=== PATIENT | male | born 1960 | race Caucasian/White ===

== ENCOUNTER → 2016-08-05 | Outpatient (CLI) | payer OTHER ==
[~2016-08-05] MED LIST: FLUID PILL; HEART MED; LISI-461 PO; REVIEWED; STOMACH MED
[2016-08-05 12:08] LABS: BASO % 0.5 %; BASO ABS # 0.04 K/uL (0-0.2); COMPLETE YES; EOS % 8.7 %; HEMATOCRIT 46.7 % (42-52); IG% 0.1 %; LYMPH % 29.4 %; LYMPH ABS # 2.22 K/uL (1.2-3.4); MEAN CORPUSCULAR HEMOGLOBIN 30.7 pg (25-34); MEAN CORPUSCULAR HGB CONC 34.5 g/dl (32-36); MEAN PLATELET VOLUME 11.4 fL (7.4-10.4); MONO % 16.2 %; NEUT % 45.1 %; PLATELET COUNT 202 K/uL (130-400); RED BLOOD COUNT 5.25 M/uL (4.7-6.1); WHITE BLOOD COUNT 7.55 K/uL (4.8-10.8)
[2016-08-05 12:33] LABS: ALT/SGPT 35 U/L (12-78); BLOOD UREA NITROGEN 14 mg/dl (7-18); CARBON DIOXIDE 22 mmol/L (21-32); CHLORIDE 107 mmol/L (98-107); CHOLESTEROL 155 mg/dl (0-200); CREATININE 0.89 mg/dl (0.60-1.40); GLUCOSE 99 mg/dl (70-99); MAGNESIUM 2.1 mg/dl (1.8-2.4); POTASSIUM 3.9 mmol/L (3.5-5.1); SODIUM 140 mmol/L (136-145); TRIGLYCERIDES 64 mg/dl (0-150); VERY LOW DENSITY LIPOPROT CALC 13 mg/dl
[2016-08-05 12:42] LABS: ALB/GLOB RATIO 1.1 (0.9-2); ALKALINE PHOSPHATASE 102 U/L (45-117); AST/SGOT 16 U/L (15-37); CHOLESTEROL/HDL RATIO 4.3; HDL CHOLESTEROL 36 mg/dl; LDL CHOLESTEROL CALCULATED 106 mg/dl
== END | disposition home or self-care (01) ==
LOC: C.LAB1850 10:48
PROVIDERS: ATTEND Internal Medicine
DX: E55.9 Vitamin D deficiency, unspecified (principal); I10 Essential (primary) hypertension; R06.09 Other forms of dyspnea; I48.91 Unspecified atrial fibrillation

== ENCOUNTER 2018-10-29 08:31 | Inpatient (IN) ==
[2018-10-29] MEDS ORDERED: dilTIAZem HCl 5 MG/ML 5 ML VIAL IV ONE (08:45)
[2018-10-29] MEDS ORDERED: dilTIAZem HCl 5 MG/ML 5 ML VIAL IV STA (08:49)
[2018-10-29] MEDS ORDERED: LORazepam 1 MG/2 ML VIAL IV STA (08:50)
[2018-10-29 08:59] LABS: Basophils # (auto) 0.03 K/uL (0-0.2); Basophils % (auto) 0.4 %; Eosinophils # (auto) 0.24 K/uL (0-0.5); Eosinophils % (auto) 3.6 %; Hematocrit (blood only) 45.6 % (42-52); Immature Granulocytes # (auto) 0.01 K/uL (0.00-0.02); Immature Granulocytes % (auto) 0.1 %; Lymphocytes # (auto) 2.23 K/uL (1.2-3.4); Lymphocytes % (auto) 33.4 %; Mean Corpuscular Hemoglobin 31.3 pg (25-34); Mean Corpuscular Hgb Conc 35.1 g/dL (32-36); Mean Corpuscular Volume 89.2 fL (80-100); Mean Platelet Volume 11.1 fL (7.4-10.4); Monocytes # (auto) 0.76 K/uL (0.11-0.59); Monocytes % (auto) 11.4 %; Neutrophils # (auto) 3.41 K/uL (1.4-6.5); Neutrophils % (auto) 51.1 %; Platelet Count 192 K/uL (130-400); RDW Coefficient of Variation 13.9 % (11.5-14.5); RDW Standard Deviation 45.3 fL (36.4-46.3); Red Blood Count 5.11 M/uL (4.7-6.1); White Blood Count 6.68 K/uL (4.8-10.8)
[2018-10-29] MEDS ORDERED: SODIUM CHLORIDE 0.9% 1000ML 1,000 ML IV SCH (09:00)
[2018-10-29 09:09] LABS: INR 1.2 (0.9-1.1); Partial Thromboplastin Ratio 1.1; Partial Thromboplastin Time 29.5 Seconds (21.0-31.0); Prothrombin Time 11.8 Seconds (9.0-12.0)
[2018-10-29 09:15] LABS: BUN Creatinine Ratio 20.9 (10-20); Calcium 9.2 mg/dl (8.5-10.1); Creatinine Clr Calc Pharmacy 89.6 ml/min; Est GFR (African American) 91.9; Est GFR (Non-African American) 79.3; Potassium 3.9 mmol/L (3.5-5.1)
[2018-10-29] MEDS: dilTIAZem HCL 125 MG in DEXTROSE 5% 100 ML IV SCH ×2 (09:17→17:35)
--- NOTE | 2018-10-29 09:28 | XRay Report ---
SINGLE VIEW CHEST CLINICAL HISTORY: Atypical chest pain. FINDINGS: An AP, portable, upright chest radiograph is compared to study dated 10/19/2018. The examina tion is degraded by portable technique and patient rotation. The heart is markedly enlarged. There is pulmonary vascular congestion with evidence of interstitial edema. Emphysema is suspected. Small p leural effusions are noted. No pneumothorax is seen. The skeletal structures are osteopenic. The bony thorax is grossly intact. IMPRESSION: 1. Cardiomegaly with evidence of congestive failure and interstitial edema. 2. Superimposed pneumonia would be impossible to exclude and clinical correlation will be required. 3. Small pleural effusions. Electronically signed by: Issa Lyles M.D. 10/29/2018 9:27 AM
[2018-10-29 09:48] LABS: Troponin I 0.212 ng/ml (0-0.045)
[2018-10-29] MEDS ORDERED: DOXYCYCLINE HYCLATE 100 MG CAP PO STA (10:14)
[2018-10-29] MEDS ORDERED: cefTRIAXone SODIUM 2,000 MG/70 ML BAG IV STA (10:14)
[2018-10-29] MEDS ORDERED: FUROSEMIDE 20 MG in SYRINGE 0 ML IV STA (10:18)
[2018-10-29] MEDS ORDERED: FUROSEMIDE 40 MG/4 ML VIAL IV STA (10:25)
--- NOTE | 2018-10-29 10:35 | History & Physical Report ---
Date of Service October 29, 2018 Assessment & Plan (1) Atrial fibrillation with RVR: Admit to PCU on telemetry Vital signs every 4 hours Trend down BNP CBC CMP magnesium daily Replenish electrolytes Trend down elevated troponin every 6 hours with EKG TTE Cardiology consulted appreciate Dr. Murray recommendations Dr. Almanzar recommended to give patient metoprolol 2.5 IV and if A. fib's continue to give another 2.5 IV and digoxin 0.25 mg if A. fib persistent, to control the rate. In the meantime ER physician was informed that patient did not take his metoprolol XL and already had given patient metoprolol XL 150mg we decided to hold metoprolol 2.5 IV and reassess patient later again. Given ceftriaxone and doxycycline for possible superimposed pneumonia empirically in the ER, and if the cough improves the next the day and all of his symptoms are in fact found to be related to acute exacerbation of congestive heart failure I recommend stopping antibiotics. Patient is afebrile, procalcitonin is 0.05 and white blood cell count is normal 6.68 therefore pneumonia less likely. Strict in and out Daily weight Low-sodium Free fluid restriction to 1200 ml p.o. daily Heart healthy diet low-fat DVT prophylaxis with heparin Full code Present on Admission?: Yes (2) Elevated troponin: trend down troponin every 6 hours EKG Probably related to cardiac strain due to acute exacerbation of congestive heart failure and A. fib's with RVR. Present on Admission?: Yes (3) Cardiomyopathy: See above Present on Admission?: Yes (4) Acute on chronic congestive heart failure: See above (5) Dyslipidemia: (6) Enlarged prostate: (7) HTN (hypertension): Continue home medicine lisinopril 10 mg p.o. twice daily, metoprolol succinate 150 mg p.o. nightly, nitroglycerin 0.4 mg sublingual q. 5 minutes as needed. Present on Admission?: Yes (8) Moderate to severe mitral regurgitation: See above cardiac issues Present on Admission?: Yes (9) Thoracic back pain: Pain management with Percocet as needed Present on Admission?: Yes (10) Constipation due to opioid therapy: Continue senna 8.6 mg tablet daily as needed and docusate sodium 100 mg daily as needed History of Present Illness Chief Complaint: Shortness of breath, palpitations and cough for 2 weeks Primary Care Provider: Rosalind Motley MD Patient is a 58 years old male with past medical history of atrial fibrillation on Eliquis, congestive heart failure, cardiomyopathy, dyslipidemia, enlarged prostate, hypertension, moderate to severe mitral regurgitation, thyroid nodule, vitamin D deficiency who was brought by his son to the emergency room for shortness of breath, palpitations that started this morning and cough for 2 weeks. Patient is on Eliquis for A. fib's. Patient reports cough being nonproductive. 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 Patient try lozenges to diminish cough but that did not help. June patient suffered a fall from 5 steps ladder underwent multiple trauma including left distal radial fracture. At that point patient was seen at [facility] by cardiology who noted that patient had A. fib's with RVR heart rate of 130 and cardiology recommended rate control strategy patient is status post ORIF PT, OT and pain control patient also had L1 vertebral fracture and TLSO brace nobody is sick at home and there is no sick contact. Patient denies fever chills chest pain abdominal pain frequency urgency hemoptysis hematemesis melena, recent weight gain. He feels malaise and very tired. In the emergency room patient heart rate was in 150s A. fib's with RVR. Cardizem bolus and drip were started and heart rate started to trend down closer to 100. Heparin drip was not started because patient is already on Eliquis. Patient has elevated troponin to 0.212. He denies chest pain. Labs are reviewed: Viable cell 6.68, hematocrit 45.6 hemoglobin 16 platelets 192, PT 11.8 INR 1.2 APTT 29.5, sodium 143, potassium 3.9 chloride 112, anion gap 6, BUN 22, creatinine 1.04 GFR 79.3 lactate 1.2 calcium 9.2, troponin 0 0.212, BNP 2527 procalcitonin 0.05. Chest x-ray shows cardiomegaly with evidence of congestive failure and interstitial edema. Superimposed pneumonia would be impossible to exclude and clinical correlation will be required. Small pleural effusions. The emergency room patient was started on diltiazem bolus/drip, given 150 mg of metoprolol which patient did not take today, started heparin bolus and drip since it was not clear if patient is regularly taking Eliquis or not. Given ceftriaxone and doxycycline for possible pneumonia superimposed with CHF. Decision was made to admit patient to PCU telemetry to trend down troponin and to treat acute exacerbation of congestive heart failure and possible pneumonia. Allergies Allergy/AdvReac Type Severity Reaction Status Date / Time No Known Allergies Allergy Mild Verified 10/29/18 09:54 Home Medications Home Medications Medication Instructions Recorded Confirmed Type docusate sodium 100 mg capsule 100 mg PO DAILY PRN 09/20/18 10/29/18 History sennosides 8.6 mg tablet 8.6 mg PO DAILY PRN tab 09/20/18 10/29/18 History benzonatate 100 mg capsule 100 mg PO TID PRN #30 cap 10/19/18 10/29/18 Rx lisinopril 10 mg tablet 10 mg PO BID #60 tab 10/19/18 10/29/18 Rx nitroglycerin 0.4 mg sublingual 0.4 mg SL Q5M PRN #30 tab 10/19/18 10/29/18 Rx tablet metoprolol succinate [Toprol XL] 150 mg PO QAM 10/29/18 10/29/18 History pantoprazole 40 mg PO QAM 10/29/18 10/29/18 History Past Med/Surg History Medical History Encounter for cardioversion procedure History of implantable cardiac defibrillator (ICD) Surgical History Hx of tonsillectomy Family History Father Coronary heart disease Hypertension Mother Hypertension Brother Hypertension Social History Preferred Language: [facility] marital status: Current Living Situation: Spouse current occupational status: disabled Feels Safe at Home: Yes Smoking Status: Never smoker Hx Alcohol Use: No Hx Substance Use: No Seatbelt Use: always Review of Systems Review of Systems: All systems reviewed & are unremarkable except as noted in HPI & below Physical Exam Constitutional: WD/WN, vitals as above well developed Eyes: PERRL, conjunctivae normal, anicteric sclerae ENMT: external ear and nose normal, oropharynx normal Neck: trachea midline, no thyromegaly Respiratory: + respiratory distress, + cough and + tachypneic Auscultation: + crackles, + wheezes, + bronchovesicular breath sounds and + egophony Cardiovascular: Rate/Rhythm: + irregularly irregular Heart Sounds: normal S1 and normal S2 Palpation: + palpable S3 Vessels: + JVD and dorsalis pedis pulses present Extremities: + pedal edema Gastrointestinal (Abdomen): normal bowel sounds, soft, nontender, no hepatosplenomegaly Musculoskeletal: no cyanosis or clubbing, extremities motor strength 5/5 Skin: no rashes, warm and dry Neurologic: patellar DTR's 2+ bilat, sensation intact Psychiatric: A+Ox3, euthymic affect Genitourinary: no testicular masses, no penis abnormality Lymphatic: no cervical or axillary lymphadenopathy Results & Data Vital Signs (Past 12 Hours) Vital Signs Temp Pulse Pulse Resp BP BP Pulse Ox 10/29/18 09:35 113 H 22 170/98 H 93 10/29/18 09:30 128 H 27 H 151/98 H 94 10/29/18 09:25 126 H 28 H 151/99 H 92 10/29/18 09:21 122 H 18 168/104 H 95 10/29/18 09:16 124 H 26 H 142/109 H 95 10/29/18 09:10 118 H 25 H 145/90 H 95 10/29/18 09:05 103 H 25 H 142/95 H 94 10/29/18 09:00 122 H 35 H 132/98 91 10/29/18 08:58 133/91 10/29/18 08:56 107 H 20 153/85 H 95 10/29/18 08:52 116 H 19 133/91 94 10/29/18 08:51 142 H 30 H 123/105 H 96 10/29/18 08:50 154 H 24 170/133 H 10/29/18 08:47 133 H 26 H 170/139 H 97 10/29/18 08:33 36.4 C L 99 H 24 148/102 H 98 Code Status & VTE Plan Code Status Full code VTE Prophylaxis Plan VTE Prophylaxis will be ordered: Yes PG Care Time/CCT Total # of Minutes Spent Total Time Spent with Patient: Total time spent is greater than 50% in coordination of care (as documented) at patient's floor/unit and/or counseling patient:
[2018-10-29 10:45] LABS: Magnesium 2.2 mg/dl (1.8-2.4)
[2018-10-29] MEDS ORDERED: METOPROLOL SUCC 50MG EXT REL TAB PO STA (10:48)
[2018-10-29] MEDS ORDERED: Heparin BOLUS **ED Use Only IV STA (10:59)
[2018-10-29] MEDS ORDERED: ALBUT/IPRATROP 3MG/0.5MG NEB 3 ML VIAL NEB STA (11:37)
[2018-10-29] MEDS ORDERED: HEPARIN SOD 5,000 UNIT/0.5 ML VIAL ONE (11:52)
[2018-10-29] MEDS: HEPARIN SODIUM/DEXTROSE 25,000 UNITS/500 ML BAG IV SCH (12:22)
[2018-10-29] MEDS ORDERED: ACETAMINOPHEN 325 MG TAB PO PRN (14:25)
[2018-10-29] MEDS ORDERED: ZOLPIDEM TARTRATE 5 MG TAB PO PRN (14:25)
[2018-10-29] MEDS ORDERED: DOCUSATE SODIUM 100 MG CAP PO PRN (14:25)
[2018-10-29] MEDS ORDERED: NITROGLYCERIN SL 0.4 MG/TAB TAB SL PRN ×2 (14:25)
[2018-10-29] MEDS ORDERED: POLYETHYLENE (MIRALAX) 17 GM PACK PO PRN (14:25)
[2018-10-29] MEDS ORDERED: SENNA 8.6 MG TAB PO PRN (14:25)
[2018-10-29] MEDS: FUROSEMIDE 100 MG in DEXTROSE 5% 90 ML IV SCH (14:57)
[2018-10-29] MEDS: BENZONATATE 100 MG CAPSULE PO PRN ×2 (15:04→19:54)
--- NOTE | 2018-10-29 15:04 | Emergency Department Note ---
Entered by Carley Ngo acting as a scribe for Andrea Najera History of Present Illness General Chief complaint: Respiratory Distress Stated complaint: SOB, SHAKEY- CARDIAC HX Time Seen by Provider: 10/29/18 08:42 Source: patient History of Present Illness Onset (ago): hour(s) (this morning) Location: chest Pain Consistency: + other (episode) Maximum Pain Intensity: 0 Quality: + other (respiratory distress) Associated symptoms: + denies other symptoms (falls, trauma, or head trauma) and + other (choking sensation) The patient is a 58 year old male with a history of atrial fibrillation that is presenting to the Emergency Room with complaints of an episode of respiratory distress that started this morning. The patients relative at bedside is acting as the patients aviation manager. The patient reports that he is having difficulty breathing and feels like someone is choking him. He denies any chest pain or hemoptysis. He denies any recent falls, trauma, or head trauma. He states that he takes all of his medications except for one. The patient notes that he is unsure which medication he does not take. He states that he is unsure if he is taking a blood thinner. Home Medications Home Medications Medication Instructions Recorded Confirmed Type docusate sodium 100 mg capsule 100 mg PO DAILY PRN 09/20/18 10/29/18 History sennosides 8.6 mg tablet 8.6 mg PO DAILY PRN tab 09/20/18 10/29/18 History benzonatate 100 mg capsule 100 mg PO TID PRN #30 cap 10/19/18 10/29/18 Rx lisinopril 10 mg tablet 10 mg PO BID #60 tab 10/19/18 10/29/18 Rx nitroglycerin 0.4 mg sublingual 0.4 mg SL Q5M PRN #30 tab 10/19/18 10/29/18 Rx tablet metoprolol succinate [Toprol XL] 150 mg PO QAM 10/29/18 10/29/18 History pantoprazole 40 mg PO QAM 10/29/18 10/29/18 History Allergies Allergy/AdvReac Type Severity Reaction Status Date / Time No Known Allergies Allergy Mild Verified 10/29/18 09:54 Past Med/Surg History Medical History Encounter for cardioversion procedure History of implantable cardiac defibrillator (ICD) Surgical History Hx of tonsillectomy Family History Father Coronary heart disease Hypertension Mother Hypertension Brother Hypertension Social History Preferred Language: Swazi Communication Ability: Effective 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 and A total of 10 systems reviewed and were otherwise negative Physical Exam Vital Signs Vital Signs - 24 hr 10/29/18 08:33 10/29/18 08:47 10/29/18 08:49 Temperature 36.4 C L Temperature Source Oral Sepsis Recent Fever Within 48 Hours No Sepsis New/Unexplained Change in Mental Status No Sepsis Action Taken by Nursing No Action Required Pulse Rate 99 H 133 H Pulse Rate [Apical] Pulse Rate from SpO2 Sensor 92 H Pulse Rhythm Pulse Rhythm [Apical] Pulse Strength Normal Respiratory Rate 24 26 H Respiratory Effort / Characteristics Labored Spontaneous Respiratory Depth Shallow Blood Pressure 148/102 H 170/139 H Blood Pressure [Left Arm] Blood Pressure Mean 117 149 Blood Pressure Mean [Left Arm] Blood Pressure Position Sitting Pulse Oximetry 98 97 Oxygen Delivery Method Room Air Room Air Oxygen Flow Rate 10/29/18 08:50 10/29/18 08:51 10/29/18 08:52 Temperature Temperature Source Sepsis Recent Fever Within 48 Hours Sepsis New/Unexplained Change in Mental Status Sepsis Action Taken by Nursing Pulse Rate 142 H 116 H Pulse Rate [Apical] 154 H Pulse Rate from SpO2 Sensor 127 H 108 H Pulse Rhythm Pulse Rhythm [Apical] Irregular Pulse Strength Respiratory Rate 24 30 H 19 Respiratory Effort / Characteristics Respiratory Depth Normal Blood Pressure 123/105 H 133/91 Blood Pressure [Left Arm] 170/133 H Blood Pressure Mean 111 105 Blood Pressure Mean [Left Arm] 145 Blood Pressure Position Pulse Oximetry 96 94 Oxygen Delivery Method Room Air Oxygen Flow Rate 10/29/18 08:56 10/29/18 08:58 10/29/18 09:00 Temperature Temperature Source Sepsis Recent Fever Within 48 Hours Sepsis New/Unexplained Change in Mental Status Sepsis Action Taken by Nursing Pulse Rate 107 H 122 H Pulse Rate [Apical] Pulse Rate from SpO2 Sensor 97 H 109 H Pulse Rhythm Pulse Rhythm [Apical] Pulse Strength Respiratory Rate 20 35 H Respiratory Effort / Characteristics Respiratory Depth Blood Pressure 153/85 H 132/98 Blood Pressure [Left Arm] 133/91 Blood Pressure Mean 107 109 Blood Pressure Mean [Left Arm] 105 Blood Pressure Position Pulse Oximetry 95 91 Oxygen Delivery Method Oxygen Flow Rate 10/29/18 09:05 10/29/18 09:10 10/29/18 09:16 Temperature Temperature Source Sepsis Recent Fever Within 48 Hours Sepsis New/Unexplained Change in Mental Status Sepsis Action Taken by Nursing Pulse Rate 103 H 118 H 124 H Pulse Rate [Apical] Pulse Rate from SpO2 Sensor 105 H 111 H 91 H Pulse Rhythm Irregular Pulse Rhythm [Apical] Pulse Strength Respiratory Rate 25 H 25 H 26 H Respiratory Effort / Characteristics Respiratory Depth Blood Pressure 142/95 H 145/90 H 142/109 H Blood Pressure [Left Arm] Blood Pressure Mean 110 108 120 Blood Pressure Mean [Left Arm] Blood Pressure Position Pulse Oximetry 94 95 95 Oxygen Delivery Method Room Air Oxygen Flow Rate 10/29/18 09:21 10/29/18 09:25 10/29/18 09:30 Temperature Temperature Source Sepsis Recent Fever Within 48 Hours Sepsis New/Unexplained Change in Mental Status Sepsis Action Taken by Nursing Pulse Rate 122 H 126 H 128 H Pulse Rate [Apical] Pulse Rate from SpO2 Sensor 119 H 103 H 120 H Pulse Rhythm Pulse Rhythm [Apical] Pulse Strength Respiratory Rate 18 28 H 27 H Respiratory Effort / Characteristics Respiratory Depth Blood Pressure 168/104 H 151/99 H 151/98 H Blood Pressure [Left Arm] Blood Pressure Mean 125 116 115 Blood Pressure Mean [Left Arm] Blood Pressure Position Pulse Oximetry 95 92 94 Oxygen Delivery Method Oxygen Flow Rate 10/29/18 09:35 10/29/18 09:40 10/29/18 09:45 Temperature Temperature Source Sepsis Recent Fever Within 48 Hours Sepsis New/Unexplained Change in Mental Status Sepsis Action Taken by Nursing Pulse Rate 113 H 130 H 142 H Pulse Rate [Apical] Pulse Rate from SpO2 Sensor 110 H 147 H 127 H Pulse Rhythm Pulse Rhythm [Apical] Pulse Strength Respiratory Rate 22 25 H 26 H Respiratory Effort / Characteristics Respiratory Depth Blood Pressure 170/98 H 131/107 H Blood Pressure [Left Arm] Blood Pressure Mean 122 115 Blood Pressure Mean [Left Arm] Blood Pressure Position Pulse Oximetry 93 92 94 Oxygen Delivery Method Oxygen Flow Rate 10/29/18 09:46 10/29/18 09:50 10/29/18 09:51 Temperature Temperature Source Sepsis Recent Fever Within 48 Hours Sepsis New/Unexplained Change in Mental Status Sepsis Action Taken by Nursing Pulse Rate 128 H 124 H 124 H Pulse Rate [Apical] Pulse Rate from SpO2 Sensor 113 H 95 H 118 H Pulse Rhythm Pulse Rhythm [Apical] Pulse Strength Respiratory Rate 27 H 27 H 24 Respiratory Effort / Characteristics Respiratory Depth Blood Pressure 144/92 H 173/117 H Blood Pressure [Left Arm] Blood Pressure Mean 109 135 Blood Pressure Mean [Left Arm] Blood Pressure Position Pulse Oximetry 95 94 94 Oxygen Delivery Method Oxygen Flow Rate 10/29/18 09:55 10/29/18 09:56 10/29/18 10:00 Temperature Temperature Source Sepsis Recent Fever Within 48 Hours Sepsis New/Unexplained Change in Mental Status Sepsis Action Taken by Nursing Pulse Rate 122 H 116 H 134 H Pulse Rate [Apical] Pulse Rate from SpO2 Sensor 109 H 122 H 119 H Pulse Rhythm Pulse Rhythm [Apical] Pulse Strength Respiratory Rate 27 H 26 H 21 Respiratory Effort / Characteristics Respiratory Depth Blood Pressure 166/97 H 147/103 H Blood Pressure [Left Arm] Blood Pressure Mean 120 117 Blood Pressure Mean [Left Arm] Blood Pressure Position Pulse Oximetry 94 93 93 Oxygen Delivery Method Oxygen Flow Rate 10/29/18 10:05 10/29/18 10:10 10/29/18 10:11 Temperature Temperature Source Sepsis Recent Fever Within 48 Hours Sepsis New/Unexplained Change in Mental Status Sepsis Action Taken by Nursing Pulse Rate 125 H 131 H 133 H Pulse Rate [Apical] Pulse Rate from SpO2 Sensor 122 H 148 H 117 H Pulse Rhythm Pulse Rhythm [Apical] Pulse Strength Respiratory Rate 28 H 36 H 25 H Respiratory Effort / Characteristics Respiratory Depth Blood Pressure 142/109 H 152/105 H Blood Pressure [Left Arm] Blood Pressure Mean 120 120 Blood Pressure Mean [Left Arm] Blood Pressure Position Pulse Oximetry 92 94 94 Oxygen Delivery Method Oxygen Flow Rate 10/29/18 10:15 10/29/18 10:16 10/29/18 10:20 Temperature Temperature Source Sepsis Recent Fever Within 48 Hours Sepsis New/Unexplained Change in Mental Status Sepsis Action Taken by Nursing Pulse Rate 155 H 149 H 147 H Pulse Rate [Apical] Pulse Rate from SpO2 Sensor 151 H 139 H 125 H Pulse Rhythm Pulse Rhythm [Apical] Pulse Strength Respiratory Rate 29 H 29 H 34 H Respiratory Effort / Characteristics Respiratory Depth Blood Pressure 166/122 H 164/103 H Blood Pressure [Left Arm] Blood Pressure Mean 136 123 Blood Pressure Mean [Left Arm] Blood Pressure Position Pulse Oximetry 93 94 91 Oxygen Delivery Method Oxygen Flow Rate 10/29/18 10:25 10/29/18 10:30 10/29/18 10:35 Temperature Temperature Source Sepsis Recent Fever Within 48 Hours Sepsis New/Unexplained Change in Mental Status Sepsis Action Taken by Nursing Pulse Rate 151 H 151 H 123 H Pulse Rate [Apical] Pulse Rate from SpO2 Sensor 156 H 146 H 124 H Pulse Rhythm Pulse Rhythm [Apical] Pulse Strength Respiratory Rate 22 29 H 30 H Respiratory Effort / Characteristics Respiratory Depth Blood Pressure 154/125 H 156/98 H 124/86 Blood Pressure [Left Arm] Blood Pressure Mean 134 117 98 Blood Pressure Mean [Left Arm] Blood Pressure Position Pulse Oximetry 91 90 92 Oxygen Delivery Method Oxygen Flow Rate 10/29/18 10:40 10/29/18 10:46 10/29/18 10:55 Temperature Temperature Source Sepsis Recent Fever Within 48 Hours Sepsis New/Unexplained Change in Mental Status Sepsis Action Taken by Nursing Pulse Rate 160 H 135 H 141 H Pulse Rate [Apical] Pulse Rate from SpO2 Sensor 113 H 126 H 133 H Pulse Rhythm Pulse Rhythm [Apical] Pulse Strength Respiratory Rate 20 21 19 Respiratory Effort / Characteristics Respiratory Depth Blood Pressure 136/89 127/90 122/93 Blood Pressure [Left Arm] Blood Pressure Mean 104 102 102 Blood Pressure Mean [Left Arm] Blood Pressure Position Pulse Oximetry 92 92 93 Oxygen Delivery Method Oxygen Flow Rate 10/29/18 11:02 10/29/18 11:15 10/29/18 11:26 Temperature Temperature Source Sepsis Recent Fever Within 48 Hours Sepsis New/Unexplained Change in Mental Status Sepsis Action Taken by Nursing Pulse Rate 129 H 146 H 114 H Pulse Rate [Apical] Pulse Rate from SpO2 Sensor 127 H 128 H Pulse Rhythm Pulse Rhythm [Apical] Pulse Strength Respiratory Rate 30 H 31 H 22 Respiratory Effort / Characteristics Respiratory Depth Blood Pressure 171/92 H 133/105 H 150/81 H Blood Pressure [Left Arm] Blood Pressure Mean 118 114 104 Blood Pressure Mean [Left Arm] Blood Pressure Position Pulse Oximetry 92 92 Oxygen Delivery Method Oxygen Flow Rate 10/29/18 11:29 10/29/18 11:30 10/29/18 11:31 Temperature Temperature Source Sepsis Recent Fever Within 48 Hours Sepsis New/Unexplained Change in Mental Status Sepsis Action Taken by Nursing Pulse Rate 120 H Pulse Rate [Apical] 133 H Pulse Rate from SpO2 Sensor 105 H Pulse Rhythm Pulse Rhythm [Apical] Pulse Strength Respiratory Rate 20 27 H Respiratory Effort / Characteristics Respiratory Depth Blood Pressure 145/110 H Blood Pressure [Left Arm] 150/81 H Blood Pressure Mean 121 Blood Pressure Mean [Left Arm] 104 Blood Pressure Position Pulse Oximetry 93 95 95 Oxygen Delivery Method Room Air Nasal Cannula Oxygen Flow Rate 2 10/29/18 11:35 10/29/18 11:46 10/29/18 12:10 Temperature Temperature Source Sepsis Recent Fever Within 48 Hours Sepsis New/Unexplained Change in Mental Status Sepsis Action Taken by Nursing Pulse Rate 125 H 110 H Pulse Rate [Apical] 120 H Pulse Rate from SpO2 Sensor 120 H 92 H Pulse Rhythm Pulse Rhythm [Apical] Pulse Strength Respiratory Rate 28 H 18 26 H Respiratory Effort / Characteristics Non-Labored Spontaneous Respiratory Depth Blood Pressure 131/87 148/97 H Blood Pressure [Left Arm] Blood Pressure Mean 101 114 Blood Pressure Mean [Left Arm] Blood Pressure Position Pulse Oximetry 94 94 93 Oxygen Delivery Method Room Air Oxygen Flow Rate 10/29/18 12:15 10/29/18 12:20 10/29/18 12:25 Temperature Temperature Source Sepsis Recent Fever Within 48 Hours Sepsis New/Unexplained Change in Mental Status Sepsis Action Taken by Nursing Pulse Rate 98 H 94 H 87 Pulse Rate [Apical] Pulse Rate from SpO2 Sensor 96 H 111 H 92 H Pulse Rhythm Pulse Rhythm [Apical] Pulse Strength Respiratory Rate 34 H 23 27 H Respiratory Effort / Characteristics Respiratory Depth Blood Pressure 151/112 H 140/105 H 122/94 Blood Pressure [Left Arm] Blood Pressure Mean 125 116 103 Blood Pressure Mean [Left Arm] Blood Pressure Position Pulse Oximetry 93 93 92 Oxygen Delivery Method Oxygen Flow Rate 10/29/18 12:30 10/29/18 12:35 10/29/18 12:40 Temperature Temperature Source Sepsis Recent Fever Within 48 Hours Sepsis New/Unexplained Change in Mental Status Sepsis Action Taken by Nursing Pulse Rate 91 H 92 H 88 Pulse Rate [Apical] Pulse Rate from SpO2 Sensor 84 91 H 80 Pulse Rhythm Pulse Rhythm [Apical] Pulse Strength Respiratory Rate 32 H 27 H 24 Respiratory Effort / Characteristics Respiratory Depth Blood Pressure 134/102 H 135/96 130/100 Blood Pressure [Left Arm] Blood Pressure Mean 112 109 110 Blood Pressure Mean [Left Arm] Blood Pressure Position Pulse Oximetry 91 92 93 Oxygen Delivery Method Oxygen Flow Rate 10/29/18 12:50 Temperature Temperature Source Sepsis Recent Fever Within 48 Hours Sepsis New/Unexplained Change in Mental Status Sepsis Action Taken by Nursing Pulse Rate 77 Pulse Rate [Apical] Pulse Rate from SpO2 Sensor 84 Pulse Rhythm Pulse Rhythm [Apical] Pulse Strength Respiratory Rate 21 Respiratory Effort / Characteristics Respiratory Depth Blood Pressure 133/104 H Blood Pressure [Left Arm] Blood Pressure Mean 113 Blood Pressure Mean [Left Arm] Blood Pressure Position Pulse Oximetry 94 Oxygen Delivery Method Oxygen Flow Rate Physical Exam GENERAL: He is oriented to person, place, and time. He appears well-developed and well-nourished. He appears stressed. Diaphoretic. - Head: Normocephalic and atraumatic. - Right Ear: External ear normal. No mastoid tenderness. - Left Ear: External ear normal. No mastoid tenderness. - Mouth/Throat: The oropharynx is clear and moist. No trismus in the jaw. No dental abscesses or uvula swelling. No oropharyngeal exudate or tonsillar abs cesses. EYES: Conjunctivae and EOM are normal. Pupils are equal, round, and reactive to light. Right eye exhibits no discharge. Left eye exhibits no discharge. No scleral icterus. NECK: Normal range of motion. Neck supple. No JVD present. No spinous process tenderness present. No carotid bruit present. No rigidity. No tracheal deviation and normal range of motion present. No Brudzinski's sign and no Kernig's sign noted. CV: Tachycardic rate, irregular rhythm, normal heart sounds and intact distal pulses. There is no peripheral edema. Palpable radial pulses bue. PULM/CHEST: Effort normal and breath sounds normal. No respiratory distress. No stridor. He has no wheezes. He has no rales. - Chest Wall: He exhibits no tenderness. ABD: The abdomen is soft. Bowel sounds are normal. He has no distension. No mass is present. There is no tenderness. There is no rebound, no guarding, no Zaragoza's sign and no tenderness at McBurney's point. Rovsig negative MUSC/SKEL: Normal range of motion. There is no peripheral edema, tenderness or deformity. LYMPH: No cervical adenopathy. NEURO: He is alert and oriented to person, place, and time. He has normal strength. No cranial nerve deficit or sensory deficit. Coordination and gait normal. GCS eye subscore is 4. GCS verbal subscore is 5. GCS motor subscore is 6. cerbellar tests wnl. SKIN: Skin is warm and dry. He is not diaphoretic. PSYCH: He has a normal mood and affect. His behavior is normal. Judgment and thought content normal. Course 0845:The patient was evaluated in room B07. A complete history and physical examination was performed. EMR reviewed. The patient was 06/26-07/11/18 at [facility] [place] due to a fall from a ladder. He was diagnosed with an L1 fracture left L2 transverse process fracture, left radius and lunar fracture, and a sternal fracture. He has a history of a fib and takes Lopressor and Cardizem. During that admission, he was diagnosed with new onset CHF left ventricular ejection fraction of 25%. On admission at [facility], patient had an elevated troponin of 0.09. EKG with atrial fibrillation at a rate 147 bpm. QRS and QTC are within normal limits. T-wave inversion in aVL and leads v4-v6. Mild ST elevation in v2 and v3 that appear to be early repolarization. When I entered the room the patient was in A fib with RVR and was given a 15 mg bolus of Cardizem which improved his HR to 110-120 bpm. We are going to start patient on Cardizem drip and give him 1 mg-Ativan. 0854: Repeat EKG status post bolus of Cardizem: Atrial fibrillation at a rate of 109 bpm. QRS and QTC are within normal limits. T-wave inversions in aVL and leads v4-v6. No ST elevation or depression noted at this time. 1003: Vital signs stable on Cardizem drip. Patient has an elevated troponin of 0.212 ng/mL. This troponin elevation is most likely elevetated due to the a fib with RVR. No anti-coagulants will be given at this time as the patient is on Elliquis. The patient will be brought onto Dr. Kimball's service, and she will consult with Cardiology. I discussed the patient's case with GRACIE Del Rio, who will evaluate the patient for further management and care. 1047: The patient's Cardizem drip was increased to 15mg. The patient's son notes that the patient did not take his 150mg-Metoprolol this morning. 1052: The patient's son told the pharmacy team that patient has not been taking Elliquis thus he will be started on Heparin. Consultations Consultation #1: I discussed the patient's case with GRACIE Del Rio, who will evaluate the patient for further management and care. Time: 10:01 Administered Medications Diltiazem HCl 125 mg/ Dextrose 125 mls @ 15 mls/hr IV .[id number] [facility]; Protocol Stop: 11/28/18 08:59 Last Titration: 10/29/18 14:04 Dose: 15 mg/hr, 15 mls/hr Documented by: [id number] Cosigned by: [id number] Titration: 10/29/18 10:50 Dose: 15 mg/hr, 15 mls/hr Documented by: [id number] Titration: 10/29/18 10:33 Dose: 12.5 mg/hr, 12.5 mls/hr Documented by: [id number] Titration: 10/29/18 10:07 Dose: 10 mg/hr, 10 mls/hr Documented by: [id number] Titration: 10/29/18 09:49 Dose: 7.5 mg/hr, 7.5 mls/hr Documented by: [id number] Admin: 10/29/18 09:17 Dose: 5 mg/hr, 5 mls/hr Documented by: [id number] Cosigned by: [id number] Heparin Sodium/Dextrose (Heparin Sodium/Dextrose) 25,000 units in 500 mls @ 29 mls/hr IV .[id number] [facility]; Protocol Stop: 11/28/18 10:59 Last Titration: 10/29/18 14:05 Dose: 1,450 units/hr, 29 mls/hr Documented by: [id number] Cosigned by: [id number] Admin: 10/29/18 12:22 Dose: 1,450 units/hr, 29 mls/hr Documented by: [id number] Cosigned by: [id number] Discontinued Medications Albuterol (Duoneb) 3 ml NEB NOW STA Stop: 10/29/18 11:38 Last Admin: 10/29/18 11:45 Dose: 3 ml Documented by: [id number] Diltiazem HCl (Cardizem) Confirm Administered Dose 25 mg IV .STK-MED ONE Stop: 10/29/18 08:46 Last Admin: 10/29/18 12:25 Dose: Not Given Documented by: [id number] Diltiazem HCl (Cardizem) 15 mg IV NOW STA Stop: 10/29/18 08:50 Last Admin: 10/29/18 08:56 Dose: 15 mg Documented by: [id number] Cosigned by: [id number] Doxycycline Hyclate (Vibramycin) 100 mg PO NOW STA Stop: 10/29/18 10:15 Last Admin: 10/29/18 10:41 Dose: 100 mg Documented by: [id number] Furosemide (Lasix) 20 mg IV NOW STA Stop: 10/29/18 10:26 Last Admin: 10/29/18 10:42 Dose: 20 mg Documented by: [id number] Heparin Sodium (Porcine) (Heparin Iv Bolus) 6,000 units IV NOW STA Stop: 10/29/18 11:00 Last Admin: 10/29/18 12:22 Dose: 6,000 units Documented by: [id number] Cosigned by: [id number] Heparin Sodium (Porcine) (Heparin Sodium (Porcine)) Confirm Administered Dose 10,000 units .ROUTE .STK-MED ONE Stop: 10/29/18 11:53 Last Admin: 10/29/18 12:25 Dose: Not Given Documented by: [id number] Heparin Sodium/Dextrose () 1 ea IV NOW STA; Protocol Stop: 10/29/18 10:52 Last Admin: 10/29/18 12:25 Dose: Not Given Documented by: [id number] Sodium Chloride (Nss 1000ml) 1,000 mls @ 999 mls/hr IV .[id number] [facility] Stop: 10/29/18 10:00 Last Infusion: 10/29/18 10:07 Dose: 0 mls/hr Documented by: [id number] Admin: 10/29/18 08:59 Dose: 999 mls/hr Documented by: [id number] Lorazepam (Ativan) 1 mg in 2 mls @ 2 mls/min IV NOW STA Stop: 10/29/18 08:51 Last Admin: 10/29/18 08:56 Dose: 2 mls/min Documented by: [id number] Ceftriaxone Sodium (Rocephin) 2,000 mg in 70 mls @ 140 mls/hr IV NOW STA Stop: 10/29/18 10:43 Last Infusion: 10/29/18 12:26 Dose: 0 mls/hr Documented by: [id number] Admin: 10/29/18 10:41 Dose: 140 mls/hr Documented by: [id number] Methylprednisolone (Solumedrol) 30 mg IV NOW STA Stop: 10/29/18 10:16 Last Admin: 10/29/18 10:42 Dose: 30 mg Documented by: [id number] Metoprolol Succinate (Toprol Xl) 150 mg PO NOW STA Stop: 10/29/18 10:49 Last Admin: 10/29/18 11:26 Dose: 150 mg Documented by: [id number] Medical Decision Making Medical Records Attestation: I reviewed the patient's medical records. Home Medications Current Medication List: was personally reviewed by me Laboratory Data Attestation: I reviewed the patient's lab results. Result diagrams: 10/29/18 08:50 10/29/18 08:50 Lab Results 10/29/18 10/29/18 10/29/18 Range/Units 08:50 08:50 08:50 WBC 6.68 (4.8-10.8) K/uL RBC 5.11 (4.7-6.1) M/uL Hgb 16.0 (14.0-18.0) g/dL Hct 45.6 (42-52) % MCV 89.2 (80-100) fL MCH 31.3 (25-34) pg MCHC 35.1 (32-36) g/dL RDW Std Deviation 45.3 (36.4-46.3) fL RDW Coeff of Rachana 13.9 (11.5-14.5) % Plt Count 192 (130-400) K/uL MPV 11.1 H (7.4-10.4) fL Immature Gran % (Auto) 0.1 % Neut % (Auto) 51.1 % Lymph % (Auto) 33.4 % Nobles % (Auto) 11.4 % Eos % (Auto) 3.6 % Baso % (Auto) 0.4 % Immature Gran # (Auto) 0.01 (0.00-0.02) K/uL Neut # (Auto) 3.41 (1.4-6.5) K/uL Lymph # (Auto) 2.23 (1.2-3.4) K/uL Nobles # (Auto) 0.76 H (0.11-0.59) K/uL Eos # (Auto) 0.24 (0-0.5) K/uL Baso # (Auto) 0.03 (0-0.2) K/uL PT 11.8 (9.0-12.0) Seconds INR 1.2 H (0.9-1.1) APTT 29.5 (21.0-31.0) Seconds PTT Ratio 1.1 Sodium 143 (136-145) mmol/L Potassium 3.9 (3.5-5.1) mmol/L Chloride 112 H (98-107) mmol/L Carbon Dioxide 25 (21-32) mmol/L Anion Gap 6.0 (3-11) BUN 22 H (7-18) mg/dl Creatinine 1.04 (0.6-1.4) mg/dl Est Cr Clr Drug Dosing 89.6 ml/min Est GFR ( Amer) 91.9 Est GFR (Non-Af Amer) 79.3 BUN/Creatinine Ratio 20.9 H (10-20) Glucose 105 H (70-99) mg/dl Lactate (0.4-2.0) mmol/L Calcium 9.2 (8.5-10.1) mg/dl Magnesium (1.8-2.4) mg/dl Troponin I 0.212 H* (0-0.045) ng/ml NT-Pro-B Natriuret Pep (0-900) pg/ml Procalcitonin (0-0.5) ng/ml 10/29/18 10/29/18 10/29/18 Range/Units 08:50 08:50 08:50 WBC (4.8-10.8) K/uL RBC (4.7-6.1) M/uL Hgb (14.0-18.0) g/dL Hct (42-52) % MCV (80-100) fL MCH (25-34) pg MCHC (32-36) g/dL RDW Std Deviation (36.4-46.3) fL RDW Coeff of Rachana (11.5-14.5) % Plt Count (130-400) K/uL MPV (7.4-10.4) fL Immature Gran % (Auto) % Neut % (Auto) % Lymph % (Auto) % Nobles % (Auto) % Eos % (Auto) % Baso % (Auto) % Immature Gran # (Auto) (0.00-0.02) K/uL Neut # (Auto) (1.4-6.5) K/uL Lymph # (Auto) (1.2-3.4) K/uL Nobles # (Auto) (0.11-0.59) K/uL Eos # (Auto) (0-0.5) K/uL Baso # (Auto) (0-0.2) K/uL PT (9.0-12.0) Seconds INR (0.9-1.1) APTT (21.0-31.0) Seconds PTT Ratio Sodium (136-145) mmol/L Potassium (3.5-5.1) mmol/L Chloride (98-107) mmol/L Carbon Dioxide (21-32) mmol/L Anion Gap (3-11) BUN (7-18) mg/dl Creatinine (0.6-1.4) mg/dl Est Cr Clr Drug Dosing ml/min Est GFR ( Amer) Est GFR (Non-Af Amer) BUN/Creatinine Ratio (10-20) Glucose (70-99) mg/dl Lactate (0.4-2.0) mmol/L Calcium (8.5-10.1) mg/dl Magnesium 2.2 Cancelled (1.8-2.4) mg/dl Troponin I (0-0.045) ng/ml NT-Pro-B Natriuret Pep 2527 H (0-900) pg/ml Procalcitonin < 0.05 (0-0.5) ng/ml 10/29/18 Range/Units 11:17 WBC (4.8-10.8) K/uL RBC (4.7-6.1) M/uL Hgb (14.0-18.0) g/dL Hct (42-52) % MCV (80-100) fL MCH (25-34) pg MCHC (32-36) g/dL RDW Std Deviation (36.4-46.3) fL RDW Coeff of Rachana (11.5-14.5) % Plt Count (130-400) K/uL MPV (7.4-10.4) fL Immature Gran % (Auto) % Neut % (Auto) % Lymph % (Auto) % Nobles % (Auto) % Eos % (Auto) % Baso % (Auto) % Immature Gran # (Auto) (0.00-0.02) K/uL Neut # (Auto) (1.4-6.5) K/uL Lymph # (Auto) (1.2-3.4) K/uL Nobles # (Auto) (0.11-0.59) K/uL Eos # (Auto) (0-0.5) K/uL Baso # (Auto) (0-0.2) K/uL PT (9.0-12.0) Seconds INR (0.9-1.1) APTT (21.0-31.0) Seconds PTT Ratio Sodium (136-145) mmol/L Potassium (3.5-5.1) mmol/L Chloride (98-107) mmol/L Carbon Dioxide (21-32) mmol/L Anion Gap (3-11) BUN (7-18) mg/dl Creatinine (0.6-1.4) mg/dl Est Cr Clr Drug Dosing ml/min Est GFR ( Amer) Est GFR (Non-Af Amer) BUN/Creatinine Ratio (10-20) Glucose (70-99) mg/dl Lactate 1.2 (0.4-2.0) mmol/L Calcium (8.5-10.1) mg/dl Magnesium (1.8-2.4) mg/dl Troponin I (0-0.045) ng/ml NT-Pro-B Natriuret Pep (0-900) pg/ml Procalcitonin (0-0.5) ng/ml Imaging Data Radiologist's Impression: Radiology results as stated below per my review and the radiologist's interpretation: SINGLE VIEW CHEST CLINICAL HISTORY: Atypical chest pain. FINDINGS: An AP, portable, upright chest radiograph is compared to study dated 10/19/2018. The examination is degraded by portable technique and patient r otation. The heart is markedly enlarged. There is pulmonary vascular congestion with evidence of interstitial edema. Emphysema is suspected. Small pleural effusions are noted. No pneumothorax is seen. The skeletal structures are osteopenic. The bony thorax is grossly intact. IMPRESSION: 1. Cardiomegaly with evidence of congestive failure and interstitial edema. 2. Superimposed pneumonia would be impossible to exclude and clinical correlation will be required. 3. Small pleural effusions. Electronically signed by: Issa Lyles M.D. 10/29/2018 9:27 AM ECG Data Attestation: I personally reviewed and interpreted this ECG as follows: Indication: SOB/dyspnea Rate (beats per minute): 147 Rhythm: atrial fibrillation Findings: + other (QRS and QTC within normal limits), + T-wave inversion (aVL and leads v4-v6) and + ST elevation (mild, in v2 and v3 that appears to be early repolarization) Additional Comments: Repeat EKG: Atrial fibrillation at a rate of 109. QRS an QTC WNL. T-wave inversion in aVL and v4-v6. No ST elevation or depression noted at this time. Blood Pressure Blood Pressure Findings: Elevated blood pressure Blood Pressure Disposition: further management by hospitalist LISA Macdonald 0845:The patient was evaluated in room B07. A complete history and physical examination was performed. EMR reviewed. The patient was 06/26-07/11/18 at [facility] due to a fall from a ladder. He was diagnosed with an L1 fracture left L2 transverse process fracture, left radius and lunar fracture, and a sternal fracture. He has a history of a fib and takes Lopressor and Cardizem. During that admission, he was diagnosed with new onset CHF left ventricular ejection fraction of 25%. On admission at [facility], patient had an elevated troponin of 0.09. EKG with atrial fibrillation at a rate 147 bpm. QRS and QTC are within normal limits. T-wave inversion in aVL and leads v4-v6. Mild ST elevation in v2 and v3 that appear to be early repolarization. When I entered the room the patient was in A fib with RVR and was given a 15 mg bolus of Cardizem which improved his HR to 110-120 bpm. We are going to start patient on Cardizem drip and give him 1 mg-Ativan. 0854: Repeat EKG status post bolus of Cardizem: Atrial fibrillation at a rate of 109 bpm. QRS and QTC are within normal limits. T-wave inversions in aVL and leads v4-v6. No ST elevation or depression noted at this time. 1003: Vital signs stable on Cardizem drip. Patient has an elevated troponin of 0.212 ng/mL. This troponin elevation is most likely elevetated due to the a fib with RVR. No anti-coagulants will be given at this time as the patient is on Elliquis. The patient will be brought onto Dr. Kimball's service, and she will consult with Cardiology. I discussed the patient's case with Dr. Kimball, [facility] [place] who will evaluate the patient for further management and care. 1047: The patient's Cardizem drip was increased to 15mg. The patient's son notes that the patient did not take his 150mg-Metoprolol this morning. 1052: The patient's son told the pharmacy team that patient has not been taking Elliquis thus he will be started on Heparin. Impression & Plan Atrial fibrillation with RVR, Elevated troponin Critical Care Time Critical Care Time: Yes Total Critical Care Time: 76 I have personally spent 76 minutes of critical care time in the direct management of this patient. This includes bedside care, interpretation of diagnostic studies, and testing, discussion with consultants, patient, and family members, and other required patient management activities. This 76 minutes is in excess of all separately billable procedures. Discharge Plan Visit Data *Final* Discharge Date/Time: 10/29/18 14:00 Chief Complaint: Respiratory Distress Stated Complaint: SOB, SHAKEY- CARDIAC HX ED Provider: Andrea Najera Discharge Problem: Atrial fibrillation with RVR, Elevated troponin Patient Disposition: Admitted As Inpatient Discharge Instructions Interventions: ED Discharge Assessment Last Done: 10/29/18 14:00 The scribe's documentation has been prepared under my direction and personally reviewed by me in its entirety. I confirm that the note above accurately reflects all work, treatment, procedures, and medical decision making performed by me.
[2018-10-29] MEDS: ROSUVASTATIN CALCIUM 5 MG TAB PO SCH (15:05)
[2018-10-29 18:59] LABS: Partial Thromboplastin Ratio 2.4
[2018-10-29 19:25] LABS: Partial Thromboplastin Time 64.1 Seconds (21.0-31.0)
[2018-10-29] MEDS: lisinopriL 10 MG TAB PO SCH (21:05)
[2018-10-29] MEDS: FAMOTIDINE 20 MG TAB PO SCH (21:07)
[2018-10-30 02:46] LABS: Basophils # (auto) 0.01 K/uL (0-0.2); Basophils % (auto) 0.1 %; Eosinophils # (auto) 0.01 K/uL (0-0.5); Eosinophils % (auto) 0.1 %; Hematocrit (blood only) 40.8 % (42-52); Hemoglobin 14.1 g/dL (14.0-18.0); Immature Granulocytes # (auto) 0.02 K/uL (0.00-0.02); Immature Granulocytes % (auto) 0.2 %; Lymphocytes # (auto) 1.64 K/uL (1.2-3.4); Lymphocytes % (auto) 16.8 %; Mean Corpuscular Hemoglobin 30.1 pg (25-34); Mean Corpuscular Hgb Conc 34.6 g/dL (32-36); Mean Platelet Volume 11.5 fL (7.4-10.4); Monocytes # (auto) 0.84 K/uL (0.11-0.59); Monocytes % (auto) 8.6 %; Neutrophils # (auto) 7.24 K/uL (1.4-6.5); Neutrophils % (auto) 74.2 %; Platelet Count 193 K/uL (130-400); RDW Coefficient of Variation 13.9 % (11.5-14.5); RDW Standard Deviation 43.7 fL (36.4-46.3); Red Blood Count 4.69 M/uL (4.7-6.1); White Blood Count 9.76 K/uL (4.8-10.8)
[2018-10-30 03:36] LABS: Albumin Level 3.6 gm/dl (3.4-5.0); BUN Creatinine Ratio 21.7 (10-20); Calcium 8.4 mg/dl (8.5-10.1); Creatinine Clr Calc Pharmacy 90.9 ml/min; Est GFR (African American) 101.3; Est GFR (Non-African American) 87.4; Potassium 3.7 mmol/L (3.5-5.1)
[2018-10-30 03:44] LABS: Albumin Globulin Ratio 1.1 (0.9-2); Bilirubin,Total 1.2 mg/dl (0.2-1); Globulin 3.4 gm/dl (2.5-4.0); Troponin I 0.18 ng/ml (0-0.045)
[2018-10-30] MEDS ORDERED: LEVALBUTEROL HCL 0.63 MG/3 ML NEB NEB STA (04:55)
[2018-10-30] MEDS: HEPARIN SODIUM/DEXTROSE 25,000 UNITS/500 ML BAG IV SCH (05:25)
[2018-10-30 06:11] LABS: Partial Thromboplastin Time 53.5 Seconds (21.0-31.0)
[2018-10-30 06:21] LABS: Estimated Average Glucose 108 mg/dl; Hemoglobin A1C 5.4 % (4.5-5.6)
[2018-10-30] MEDS ORDERED: ALBUT/IPRATROP 3MG/0.5MG NEB 3 ML VIAL NEB PRN (06:36)
[2018-10-30] MEDS: lisinopriL 10 MG TAB PO SCH ×2 (08:34→20:19)
[2018-10-30] MEDS: ROSUVASTATIN CALCIUM 5 MG TAB PO SCH (08:34)
[2018-10-30] MEDS: BENZONATATE 100 MG CAPSULE PO PRN ×2 (08:37→20:20)
[2018-10-30] MEDS ORDERED: METOPROLOL SUCC 50MG EXT REL TAB PO SCH (09:00)
[2018-10-30] MEDS: FAMOTIDINE 20 MG TAB PO SCH (09:02)
--- NOTE | 2018-10-30 15:55 | Cardiology Consultation ---
Date of Consultation October 30, 2018 Assessment & Plan (1) Atrial fibrillation with RVR: He has longstanding history of atrial fibrillation and poor rate control. Overall rate control is questionable. Recent interrogation of life vest he was wearing suggests suboptimal rate control. He has had his medical therapy changed on several occasions over the past few months due to concerns over bradycardia. However, his rate control appears to be good today and his diltiazem infusion appears to have been discontinued. Think we will increase his metoprolol to 200 milligrams daily starting tomorrow. He could have extra metoprolol tartrate this evening if his heart rate climbs again. Ideally, we would avoid the addition of diltiazem given his cardiomyopathy. However, if more aggressive rate control is require we may need to add diltiazem. A good option for this patient with permanent atrial fibrillation and associated cardiomyopathy would be implantation of a device and AV node ablation. (2) Elevated troponin: I think this is related to his cardiomyopathy and acute heart failure. I do not believe this is hospital insurance representative of an acute coronary syndrome. I think he can discontinue his heparin. (3) Cardiomyopathy: This is nonischemic. It is believed to be related to poorly controlled atrial fibrillation. He did have a catheterization a few months ago which did not reveal any obstructive coronary disease. He has been maintained on beta- blockade and Marquis inhibition. We will likely need to adjust his diuretic regimen at some point and will likely add an aldosterone antagonist. (4) Moderate to severe mitral regurgitation: Undoubtedly this contributes to his symptoms of heart failure. However, given his cardiomyopathy and absence of coronary disease he is not a good candidate for any valve therapy (5) Acute on chronic congestive heart failure: Likely related to his atrial fibrillation and persistently high rates. It does not appear to be another precipitating cause. He seems to have improved slightly today. Some of his diuresis has been attenuated by volume infusion. I think we can discontinue his heparin and diltiazem infusions. I think we can switch to bolus Lasix dosing. History of Present Illness Reason for Consultation: Dyspnea Requesting Physician: Rehana Attending Physician: Jeffy Maddox History of Present Illness The patient is a 58-year-old gentleman with a longstanding history of nonischemic cardiomyopathy who [facility] the [facility] with symptoms of breathing difficulty. Patient speaks limited Taiwanese in today's interview was facilitated by a craps dealer. It seems that over the past week his breathing has become more difficult. He states that he even has difficulty sleeping at nighttime due to breathing difficulties. He does report some subjective weight gain over that time. He has noted some lower extremity edema which she feels is fairly chronic in nature. He claims to have been compliant with medical therapy. He claims to follow low-sodium diet. He reports elevated heart rates at home he takes them with his blood pressure cuff. He states that his usual heart rate ranges between 101 110 beats per minute. It is not unusual for him to have heart rate ranges in the 120s. He has some element of dizziness and lightheadedness when bending over. He states that he was almost syncopal when he was dying issues the other day. However, he has not suffered syncope. He generally is not aware of palpitations. He does have symptoms of chest discomfort that appear to be fairly focal in nature. This involves the left upper chest and radiates to the back. He feels this may be related to his recent injury. He also has some concerns regarding his kidney function and pain in the kidney area. He states that he is feeling somewhat better today. His breathing is slightly improved. Allergies Allergy/AdvReac Type Severity Reaction Status Date / Time No Known Allergies Allergy Mild Verified 10/29/18 09:54 Home Medications Home Medications Medication Instructions Recorded Confirmed Type docusate sodium 100 mg capsule 100 mg PO DAILY PRN 09/20/18 10/29/18 History sennosides 8.6 mg tablet 8.6 mg PO DAILY PRN tab 09/20/18 10/29/18 History benzonatate 100 mg capsule 100 mg PO TID PRN #30 cap 10/19/18 10/29/18 Rx lisinopril 10 mg tablet 10 mg PO BID #60 tab 10/19/18 10/29/18 Rx nitroglycerin 0.4 mg sublingual 0.4 mg SL Q5M PRN #30 tab 10/19/18 10/29/18 Rx tablet metoprolol succinate [Toprol XL] 150 mg PO QAM 10/29/18 10/29/18 History pantoprazole 40 mg PO QAM 10/29/18 10/29/18 History Patient History Medical History Encounter for cardioversion procedure History of implantable cardiac defibrillator (ICD) Surgical History Hx of tonsillectomy Family History Father Coronary heart disease Hypertension Mother Hypertension Brother Hypertension Social History Preferred Language: Swazi Communication Ability: Effective Minilab Operator Required: Yes, Video and Voice Beliefs That Will Affect Care: None marital status: Current Living Situation: Family current occupational status: disabled Other Information That Helps Us Care for You: No Feels Safe at Home: Yes Safety Concerns: Feels Safe At This Time Smoking Status: Never smoker Do You Dip or Chew Tobacco: No ; Second Hand Exposure: No ; Tobacco Cessation Education Requested by Patient: No Hx Alcohol Use: No Hx Substance Use: No Seatbelt Use: always Review of Systems Review of Systems: All systems reviewed & are unremarkable except as noted in HPI & below He did report having some sweats at nighttime as well. He has a nonproductive cough. He did not have rigors and did not document an actual fever. Physical Exam Physical Exam: The patient is alert and oriented. Mood and affect appeared normal. He answered all questions appropriately. HEENT: Pupils are equal and reactive to light and accommodation. Extraocular movements are intact. The sclerae are anicteric. Neuro: Cranial nerves intact Neck: Patient's neck is supple. He has palpable carotid pulses bilaterally without bruits on auscultation. There is no evidence of jugular venous distention. The thyroid is not enlarged. Lungs: Occasional crackle in the bases bilaterally. He has good air movement without use of accessory muscles. No rales wheezes or rhonchi. Cardiac: Heart demonstrates an irregular rate and rhythm. Normal S1 and S2. No murmurs on examination. Pulses: The patient has palpable radial pulses bilaterally that are equal in intensity Extremities: There was no evidence of hypoperfusion. There is no cyanosis or clubbing. Mild lower extremity edema. Skin: I did not appreciate any rashes on examination today. Results & Data Vital Signs (Past 12 Hours) Vital Signs Temp Pulse Pulse Pulse Resp BP Pulse Ox 10/30/18 11:17 36.4 C L 81 18 109/70 92 10/30/18 08:00 72 10/30/18 07:01 37 C 61 22 116/61 97 10/30/18 05:14 68 20 95 10/30/18 04:36 36.5 C 67 22 96/60 L 90 Laboratory Results Abnormal Lab Results 10/29/18 10/29/18 10/30/18 18:23 20:19 02:33 WBC RBC Hgb Hct MCV MCH MCHC RDW Std Deviation RDW Coeff of Rachana Plt Count MPV Immature Gran % (Auto) Neut % (Auto) Lymph % (Auto) Caroline % (Auto) Eos % (Auto) Baso % (Auto) Immature Gran # (Auto) Neut # (Auto) Lymph # (Auto) Caroline # (Auto) Eos # (Auto) Baso # (Auto) APTT 64.1 H* PTT Ratio 2.4 Sodium 141 Potassium 3.7 Chloride 107 Carbon Dioxide 23 Anion Gap 11.0 BUN 21 H Creatinine 0.96 Est Cr Clr Drug Dosing 90.9 Est GFR ( Amer) 101.3 Est GFR (Non-Af Amer) 87.4 BUN/Creatinine Ratio 21.7 H Glucose 127 H Estimat Average Glucose Hemoglobin A1c Calcium 8.4 L Total Bilirubin 1.2 H AST 21 ALT 49 Alkaline Phosphatase 94 Troponin I 0.178 H* 0.180 H* NT-Pro-B Natriuret Pep 2952 H Total Protein 7.0 Albumin 3.6 Globulin 3.4 Albumin/Globulin Ratio 1.1 Triglycerides 61 Cholesterol 156 LDL Cholesterol, Calc 100 VLDL Cholesterol, Calc 12 HDL Cholesterol 44 Cholesterol/HDL Ratio 4 10/30/18 10/30/18 10/30/18 02:33 02:33 05:31 WBC 9.76 RBC 4.69 L Hgb 14.1 Hct 40.8 L MCV 87.0 MCH 30.1 MCHC 34.6 RDW Std Deviation 43.7 RDW Coeff of Rachana 13.9 Plt Count 193 MPV 11.5 H Immature Gran % (Auto) 0.2 Neut % (Auto) 74.2 Lymph % (Auto) 16.8 Caroline % (Auto) 8.6 Eos % (Auto) 0.1 Baso % (Auto) 0.1 Immature Gran # (Auto) 0.02 Neut # (Auto) 7.24 H Lymph # (Auto) 1.64 Caroline # (Auto) 0.84 H Eos # (Auto) 0.01 Baso # (Auto) 0.01 APTT 53.5 H* PTT Ratio 2.0 Sodium Potassium Chloride Carbon Dioxide Anion Gap BUN Creatinine Est Cr Clr Drug Dosing Est GFR ( Amer) Est GFR (Non-Af Amer) BUN/Creatinine Ratio Glucose Estimat Average Glucose 108 Hemoglobin A1c 5.4 Calcium Total Bilirubin AST ALT Alkaline Phosphatase Troponin I NT-Pro-B Natriuret Pep Total Protein Albumin Globulin Albumin/Globulin Ratio Triglycerides Cholesterol LDL Cholesterol, Calc VLDL Cholesterol, Calc HDL Cholesterol Cholesterol/HDL Ratio 10/30/18 08:19 WBC RBC Hgb Hct MCV MCH MCHC RDW Std Deviation RDW Coeff of Rachana Plt Count MPV Immature Gran % (Auto) Neut % (Auto) Lymph % (Auto) Caroline % (Auto) Eos % (Auto) Baso % (Auto) Immature Gran # (Auto) Neut # (Auto) Lymph # (Auto) Caroline # (Auto) Eos # (Auto) Baso # (Auto) APTT PTT Ratio Sodium Potassium Chloride Carbon Dioxide Anion Gap BUN Creatinine Est Cr Clr Drug Dosing Est GFR ( Amer) Est GFR (Non-Af Amer) BUN/Creatinine Ratio Glucose Estimat Average Glucose Hemoglobin A1c Calcium Total Bilirubin AST ALT Alkaline Phosphatase Troponin I 0.175 H* NT-Pro-B Natriuret Pep Total Protein Albumin Globulin Albumin/Globulin Ratio Triglycerides Cholesterol LDL Cholesterol, Calc VLDL Cholesterol, Calc HDL Cholesterol Cholesterol/HDL Ratio Diagnostic Findings Chest x-ray obtained at the time of admission did reveal evidence of pulmonary v ascular congestion Echocardiogram performed today revealed persistently low ejection fraction. EF estimated at 25-30 percent. Global hypokinesis. Monitor severe mitral regurgitation ECG Additional Comments: Atrial fibrillation control ventricular rate. Voltage criteria for left ventricular hypertrophy with associated repolarization changes PG Care Time/CCT Total # of Minutes Spent Total Time Spent with Patient: Total time spent is greater than 50% in coordination of care (as documented) at patient's floor/unit and/or counseling patient:
[2018-10-30] MEDS: FUROSEMIDE 100 MG in DEXTROSE 5% 90 ML IV SCH (16:13)
[2018-10-30] MEDS: dilTIAZem HCL 125 MG in DEXTROSE 5% 100 ML IV SCH (16:13)
[2018-10-30] MEDS: FUROSEMIDE 80 MG in SYRINGE 0 ML IV SCH (20:19)
--- NOTE | 2018-10-30 22:39 | Hospitalist Progress Note ---
Date of Service October 30, 2018 Assessment & Plan (1) Atrial fibrillation with RVR: Admit to PCU on telemetry Vital signs every 4 hours Trend down BNP CBC CMP magnesium daily Replenish electrolytes Trend down elevated troponin every 6 hours with EKG TTE Cardiology consulted appreciate Dr. Murray recommendations Dr. Almanzar recommended to give patient metoprolol 2.5 IV and if A. fib's continue to give another 2.5 IV and digoxin 0.25 mg if A. fib persistent, to control the rate. In the meantime ER physician was informed that patient did not take his metoprolol XL and already had given patient metoprolol XL 150mg we decided to hold metoprolol 2.5 IV and reassess patient later again. Given ceftriaxone and doxycycline for possible superimposed pneumonia empirically in the ER, and if the cough improves the next the day and all of his symptoms are in fact found to be related to acute exacerbation of congestive heart failure I recommend stopping antibiotics. Patient is afebrile, procalcitonin is 0.05 and white blood cell count is normal 6.68 therefore pneumonia less likely. Strict in and out Daily weight Low-sodium Free fluid restriction to 1200 ml p.o. daily On day 2 of hospital stay, patient heart rate appears to be improving. will increase metoprolol succinate to 200mg Will transition lasix to 80 mg IV BID will continue to monitor CHADSVASC score is 1. At this time, do not believe patient requires anticoagulation. Chest appears to be more clear than before. Heart healthy diet low-fat DVT prophylaxis with heparin Full code (2) Elevated troponin: trend down troponin every 6 hours EKG Probably related to cardiac strain due to acute exacerbation of congestive heart failure and A. fib's with RVR. (3) Cardiomyopathy: See above (4) Acute on chronic congestive heart failure: See above continue IV diuretcis (5) Dyslipidemia: (6) Enlarged prostate: (7) HTN (hypertension): Continue home medicine lisinopril 10 mg p.o. twice daily, metoprolol succinate 150 mg p.o. nightly, nitroglycerin 0.4 mg sublingual q. 5 minutes as needed. Unsure if patient has HTN as this would be given for CHF. (8) Moderate to severe mitral regurgitation: See above cardiac issues (9) Thoracic back pain: Pain management with Percocet as needed (10) Constipation due to opioid therapy: Continue senna 8.6 mg tablet daily as needed and docusate sodium 100 mg daily as needed Subjective Patient denies any new complaints. Review of Systems Review of Systems: All systems reviewed & are unremarkable except as noted in HPI & below Physical Exam Physical Exam: Constitutional: WD/WN, vitals as above well developed Eyes: PERRL, conjunctivae normal, anicteric sclerae ENMT: external ear and nose normal, oropharynx normal Neck: trachea midline, no thyromegaly Respiratory: CTA B/L except for bibasilar rales Cardiovascular: Rate/Rhythm: + irregularly irregular Heart Sounds: normal S1 and normal S2 Palpation: + palpable S3 Vessels: + JVD and dorsalis pedis pulses present Extremities: + pedal edema Gastrointestinal (Abdomen): normal bowel sounds, soft, nontender, no hepatosplenomegaly Musculoskeletal: no cyanosis or clubbing, extremities motor strength 5/5 Skin: no rashes, warm and dry Neurologic: patellar DTR's 2+ bilat, sensation intact Psychiatric: A+Ox3, euthymic affect Lymphatic: no cervical or axillary lymphadenopathy Results & Data Vital Signs (Past 12 Hours) Vital Signs Temp Pulse Resp BP Pulse Ox 10/30/18 19:25 36.5 C 78 17 100/65 92 10/30/18 15:10 36.4 C L 83 21 124/81 95 10/30/18 11:17 36.4 C L 81 18 109/70 92 PG Care Time/CCT Total # of Minutes Spent Total Time Spent with Patient: Total time spent is greater than 50% in coordination of care (as documented) at patient's floor/unit and/or counseling patient:
[2018-10-31 06:54] VITALS: O2SAT 94
[2018-10-31 07:17] LABS: Basophils # (auto) 0.04 K/uL (0-0.2); Basophils % (auto) 0.5 %; Eosinophils # (auto) 0.31 K/uL (0-0.5); Eosinophils % (auto) 3.8 %; Hematocrit (blood only) 44.4 % (42-52); Hemoglobin 15.4 g/dL (14.0-18.0); Immature Granulocytes # (auto) 0.01 K/uL (0.00-0.02); Immature Granulocytes % (auto) 0.1 %; Lymphocytes # (auto) 2.82 K/uL (1.2-3.4); Lymphocytes % (auto) 34.9 %; Mean Corpuscular Hemoglobin 30.7 pg (25-34); Mean Corpuscular Hgb Conc 34.7 g/dL (32-36); Mean Corpuscular Volume 88.4 fL (80-100); Monocytes # (auto) 0.96 K/uL (0.11-0.59); Monocytes % (auto) 11.9 %; Neutrophils # (auto) 3.94 K/uL (1.4-6.5); Neutrophils % (auto) 48.8 %; Platelet Count 199 K/uL (130-400); RDW Coefficient of Variation 13.9 % (11.5-14.5); RDW Standard Deviation 44.8 fL (36.4-46.3); Red Blood Count 5.02 M/uL (4.7-6.1); White Blood Count 8.08 K/uL (4.8-10.8)
[2018-10-31 07:51] LABS: Albumin Level 3.8 gm/dl (3.4-5.0); BUN Creatinine Ratio 25.5 (10-20); Calcium 9.3 mg/dl (8.5-10.1); Creatinine Clr Calc Pharmacy 80.7 ml/min; Est GFR (African American) 89.9; Est GFR (Non-African American) 77.5; Potassium 3.7 mmol/L (3.5-5.1)
[2018-10-31 07:55] LABS: Albumin Globulin Ratio 1.1 (0.9-2); Globulin 3.5 gm/dl (2.5-4.0); Total Protein 7.3 gm/dl (6.4-8.2)
[2018-10-31] MEDS: lisinopriL 10 MG TAB PO SCH (08:27)
[2018-10-31] MEDS: FUROSEMIDE 80 MG in SYRINGE 0 ML IV SCH (08:28)
[2018-10-31] MEDS: ROSUVASTATIN CALCIUM 5 MG TAB PO SCH (08:28)
[2018-10-31] MEDS: FAMOTIDINE 20 MG TAB PO SCH (08:28)
[2018-10-31] MEDS ORDERED: METOPROLOL SUCC 50MG EXT REL TAB PO SCH (09:00)
[2018-10-31 11:12] VITALS: BP 112/76; TEMP 97.3
[2018-10-31 14:00] VITALS: PULSE 61
--- NOTE | 2018-11-09 00:10 | Discharge Summary ---
Date of Service October 31, 2018 Admission HPI Per Admitting Provider Patient is a 58 years old male with past medical history of atrial fibrillation on Eliquis, congestive heart failure, cardiomyopathy, dyslipidemia, enlarged prostate, hypertension, moderate to severe mitral regurgitation, thyroid nodule, vitamin D deficiency who was brought by his son to the emergency room for shortness of breath, palpitations that started this morning and cough for 2 weeks. Patient is on Eliquis for A. fib's. Patient reports cough being nonproductive. 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 Lemus. Patient try lozenges to diminish cough but that did not help. June patient suffered a fall from 5 steps ladder underwent multiple trauma including left distal radial fracture. At that point patient was seen at [facility] by cardiology who noted that patient had A. fib's with RVR heart rate of 130 and cardiology recommended rate control strategy patient is status post ORIF PT, OT and pain control patient also had L1 vertebral fracture and TLSO brace nobody is sick at home and there is no sick contact. Patient denies fever chills chest pain abdominal pain frequency urgency hemoptysis hematemesis melena, recent weight gain. He feels malaise and very tired. In the emergency room patient heart rate was in 150s A. fib's with RVR. Cardizem bolus and drip were started and heart rate started to trend down closer to 100. Heparin drip was not started because patient is already on Eliquis. Patient has elevated troponin to 0.212. He denies chest pain. Labs are reviewed: Viable cell 6.68, hematocrit 45.6 hemoglobin 16 platelets 192, PT 11.8 INR 1.2 APTT 29.5, sodium 143, potassium 3.9 chloride 112, anion gap 6, BUN 22, creatinine 1.04 GFR 79.3 lactate 1.2 calcium 9.2, troponin 0 0.212, BNP 2527 procalcitonin 0.05. Chest x-ray shows cardiomegaly with evidence of congestive failure and interstitial edema. Superimposed pneumonia would be impossible to exclude and clinical correlation will be required. Small pleural effusions. The emergency room patient was started on d iltiazem bolus/drip, given 150 mg of metoprolol which patient did not take today, started heparin bolus and drip since it was not clear if patient is regularly taking Eliquis or not. Given ceftriaxone and doxycycline for possible pneumonia superimposed with CHF. Decision was made to admit patient to PCU telemetry to trend down troponin and to treat acute exacerbation of congestive heart failure and possible pneumonia. Principal Diagnosis A. fib RVR acute on chronic systolic chf Discharge Exam Constitutional: WD/WN, vitals as above well developed Eyes: PERRL, conjunctivae normal, anicteric sclerae ENMT: external ear and nose normal, oropharynx normal Neck: trachea midline, no thyromegaly Respiratory: CTA B/L except for bibasilar rales Cardiovascular: Rate/Rhythm: + irregularly irregular Heart Sounds: normal S1 and normal S2 Palpation: + palpable S3 Vessels: + JVD and dorsalis pedis pulses present Extremities: + pedal edema Gastrointestinal (Abdomen): normal bowel sounds, soft, nontender, no hepatosplenomegaly Musculoskeletal: no cyanosis or clubbing, extremities motor strength 5/5 Skin: no rashes, warm and dry Neurologic: patellar DTR's 2+ bilat, sensation intact Psychiatric: A+Ox3, euthymic affect Lymphatic: no cervical or axillary lymphadenopathy Discharge Data Allergies Allergy/AdvReac Type Severity Reaction Status Date / Time No Known Allergies Allergy Mild Verified 10/29/18 09:54 Consultations 10/29/18 10:02 ED Decision to Admit Stat 10/29/18 14:25 Consult Cardiology Routine Hospital Course (1) Atrial fibrillation with RVR: Admit to PCU on telemetry Vital signs every 4 hours Trend down BNP CBC CMP magnesium daily Replenish electrolytes Trend down elevated troponin every 6 hours with EKG TTE Cardiology consulted appreciate Dr. Murray recommendations Dr. Almanzar recommended to give patient metoprolol 2.5 IV and if A. fib's continue to give another 2.5 IV and digoxin 0.25 mg if A. fib persistent, to control the rate. In the meantime ER physician was informed that patient did not take his metoprolol XL and already had given patient metoprolol XL 150mg we decided to hold metoprolol 2.5 IV and reassess patient later again. Given ceftriaxone and doxycycline for possible superimposed pneumonia empirically in the ER, and if the cough improves the next the day and all of his symptoms are in fact found to be related to acute exacerbation of congestive heart failure I recommend stopping antibiotics. Patient is afebrile, procalcitonin is 0.05 and white blood cell count is normal 6.68 therefore pneumonia less likely. Strict in and out Daily weight Low-sodium Free fluid restriction to 1200 ml p.o. daily On day 2 of hospital stay, patient heart rate appears to be improving. will increase metoprolol succinate to 200mg Will transition lasix to 80 mg IV BID will continue to monitor CHADSVASC score is 1. At this time, do not believe patient requires anticoagulation. Chest appears to be more clear than before. 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 Patient was updated on his condition. Will add spironolactone to his regimen. Patient CHADVASC score is 1. will hold off systemic anticoagulation. will continue aspirin however. (2) Elevated troponin: trend down troponin every 6 hours EKG Probably related to cardiac strain due to acute exacerbation of congestive heart failure and A. fib's with RVR. (3) Cardiomyopathy: See above (4) Acute on chronic congestive heart failure: See above continue IV diuretcis (5) Dyslipidemia: (6) Enlarged prostate: (7) HTN (hypertension): Continue home medicine lisinopril 10 mg p.o. twice daily, metoprolol succinate 150 mg p.o. nightly, nitroglycerin 0.4 mg sublingual q. 5 minutes as needed. Unsure if patient has HTN as this would be given for CHF. (8) Moderate to severe mitral regurgitation: See above cardiac issues (9) Thoracic back pain: Pain management with Percocet as needed (10) Constipation due to opioid therapy: Continue senna 8.6 mg tablet daily as needed and docusate sodium 100 mg daily as needed Total Time Total Time Spent Total Time Spent (In Minutes): 32 Total Time Includes: Examination of the Patient, Discharge Planning and Medication Reconciliation Discharge Plan Discharge Items Patient Disposition: Home - Self-Care Reason For Visit: ACUTE CHF EXACERBATION, A FIB'S WITH RVR Activity: Resume your previous activity Non-emergency contact: Primary Care Provider Follow-up/Referrals: Rosalind Motley MD [Primary Care Provider] - Fluids: 1200ml (5 cups) Addtl Director Outpatient Services Provider Instructions: Will recommend followup with heart failure clinic; Followup with PCP in 1-2 weeks Call 911 and go to the Emergency Room if: * You have tightness or pain in your chest that does not go away with rest or Nitroglycerin * You are very short of breath even with rest Call your doctor if any of the following symptoms or problems start or get worse: * Shortness of breath or difficulty breathing * Wake up at night short of breath * Chest pain * Cough * Swelling of your hands, fee, or legs * More fatigued or tired with your normal activity * Palpitations - sudden fast heart beats WEIGHT * Weigh yourself every morning after using the bathroom. * Use the same scale. * Wear the same amount of clothing. * Write your weight down on your chart. * Call your doctor if you gain more than 2-3 pounds in 1-2 days. MEDICATIONS * Use this discharge instruction sheet for instructions. * Take your medications at the time your doctor ordered. * Do not skip a dose of your medicines. * If you miss a dose of medicine, take as soon as possible, but DO NOT DOUBLE A DOSE. * Read your medicine information when you get home. * Know all of the side effects of your medicine. * Call your doctor's office if you have any side effects. * Be sure all of your doctors know what medicine and herbs you take (including cold, flu, and herbal medicine). * Pain Medicine: If you do not get relief from your pain, please call your doctor for help. Take the following with you to your follow-up doctor appointments: * Weight Chart * Medication List * List of questions Do not drink excessive alcohol, beer or wine. Stand-Alone Forms: My [facility] Medications and DC Order Prescriptions: New rosuvastatin [Crestor] 5 mg Tablet 5 mg PO QAM Qty: 30 RF: 0 spironolactone 25 mg tablet 25 mg PO DAILY Qty: 30 RF: 0 Continued docusate sodium 100 mg capsule 100 mg PO DAILY PRN (Reason: constipation) RF: 0 sennosides [senna] 8.6 mg tablet 8.6 mg PO DAILY PRN (Reason: Constipation) RF: 0 lisinopril 10 mg tablet 10 mg PO BID Qty: 60 RF: 5 nitroglycerin 0.4 mg tablet, sublingual 0.4 mg SL Q5M PRN (Reason: chest pain) Qty: 30 RF: 0 pantoprazole 40 mg tablet,delayed release (DR/EC) 40 mg PO QAM RF: 0 No Action furosemide 20 mg tablet 40 mg PO BID Qty: 120 RF: 0 metoprolol succinate [Toprol XL] 100 mg tablet extended release 24 hr 50 mg PO BID RF: 0 Discharge Orders: Discharge Order (Routine); Ordered 10/31/18 Ordered By: Jeffy Thomas/Other Patient Handouts: Rosuvastatin Calcium Oral tablet, Furosemide Oral tablet, Spironolactone Oral tablet, Heart Failure Tracking Weight Admission Data Admit Date/Time: 10/29/18 12:52 Attending Provider: Jeffy Maddox Admit Provider: Suri Kimball Primary Care Provider: Rosalind Motley V. Other Providers: Alfred Mccullough Other Interventions: Discharge Summary Assessment (RN) Last Done: 10/31/18 13:58 DC Date/Time DO NOT enter until pt leaves facility: 10/31/18 16:15
--- NOTE | 2018-11-09 06:31 | Coding Query ---
CODING QUERY To promote full compliance with coding requirements relating to patient care, provider participation is requested in all cases of medical records coder uncertainty. Please assist us with the question(s) below: Coding Question(s): There is documentation of possible pneumonia with the admission HPI stating that superimposed pneumonia would be impossible to exclude and clinical correlation will be required and the Discharge Summary hospital course documents, "Given ceftriaxone and doxycycline for possible superimposed pneumonia empirically in the ER, and if the cough improves the next the day and all of his symptoms are in fact found to be related to acute exacerbation of congestive heart failure I recommend stopping antibiotics. Patient is afebrile, procalcitonin is 0.05 and white blood cell count is normal 6.68 therefore pneumonia less likely.". It is not clear if pneumonia was still a possible diagnosis or if it was rule-out completely. Please clarify below, in your clinical opinion, regarding the possible pneumonia. ( ) Possible Pneumonia ( x) Pneumonia was ruled-out Physician's Response(s): Thank you Kanwal Beltre Principal Diagnosis: "that condition established after study, to be chiefly responsible for occasioning the admission of the patient to the hospital for care." Co-Existing Principal Diagnosis: "when two or more diagnoses equally meet the criteria for principal diagnosis as determined by the circumstances of admission, diagnostic work up, and/or therapy provided, and the Alphabetic Index, Tabular List, or another coding guideline does not provide sequencing direction, any one of the diagnoses may be sequenced first." "When the physician has documented what appears to be a current diagnosis in the body of the record, but has not included the diagnosis in the final diagnostic statement, the physician should be asked whether the diagnosis should be added." (Source Coding Clinic 2 QTR90. p3-4) MTDD
== END 2018-10-31 16:15 | disposition home or self-care (01) | DRG 308 ==
LOC: ED 08:31 → SUATTDRO 12:52 → 2S 12:52

== ENCOUNTER 2019-01-25 21:47 | Inpatient (IN) ==
[2019-01-25 22:25] LABS: Basophils # (auto) 0.01 K/uL (0-0.2); Basophils % (auto) 0.1 %; Eosinophils # (auto) 0.15 K/uL (0-0.5); Eosinophils % (auto) 1.5 %; Hematocrit (blood only) 44.3 % (42-52); Hemoglobin 15.3 g/dL (14.0-18.0); Immature Granulocytes # (auto) 0.03 K/uL (0.00-0.02); Immature Granulocytes % (auto) 0.3 %; Lymphocytes % (auto) 23.5 %; Mean Corpuscular Hemoglobin 31.2 pg (25-34); Mean Corpuscular Hgb Conc 34.5 g/dL (32-36); Mean Corpuscular Volume 90.4 fL (80-100); Mean Platelet Volume 11.1 fL (7.4-10.4); Monocytes # (auto) 1.35 K/uL (0.11-0.59); Monocytes % (auto) 13.2 %; Neutrophils # (auto) 6.28 K/uL (1.4-6.5); Neutrophils % (auto) 61.4 %; Platelet Count 203 K/uL (130-400); RDW Coefficient of Variation 15.8 % (11.5-14.5); RDW Standard Deviation 52.2 fL (36.4-46.3); White Blood Count 10.22 K/uL (4.8-10.8)
[2019-01-25] MEDS ORDERED: dilTIAZem HCl 5 MG/ML 5 ML VIAL IV STA (22:27)
[2019-01-25 22:35] LABS: Alanine Aminotransferase 52 U/L (12-78); Albumin Level 3.9 gm/dl (3.4-5.0); Aspartate Aminotransferase 46 U/L (15-37); BUN Creatinine Ratio 18.7 (10-20); Blood Urea Nitrogen 17 mg/dl (7-18); Calcium 9.3 mg/dl (8.5-10.1); Carbon Dioxide 23 mmol/L (21-32); Chloride 110 mmol/L (98-107); Est GFR (African American) 109.2; Est GFR (Non-African American) 94.3; Glucose 110 mg/dl (70-99); Lipase 65 U/L (73-393); Magnesium 1.9 mg/dl (1.8-2.4); Potassium 3.9 mmol/L (3.5-5.1); Sodium 140 mmol/L (136-145)
[2019-01-25] MEDS: dilTIAZem HCL 125 MG in DEXTROSE 5% 100 ML IV SCH (22:41)
[2019-01-25 22:44] LABS: INR 1.2 (0.9-1.1); Partial Thromboplastin Ratio 1.1; Prothrombin Time 11.9 Seconds (9.0-12.0)
[2019-01-25 22:55] LABS: Albumin Globulin Ratio 1.1 (0.9-2); Alkaline Phosphatase 133 U/L (45-117); Bilirubin,Total 2.1 mg/dl (0.2-1); Globulin 3.5 gm/dl (2.5-4.0); Total Protein 7.4 gm/dl (6.4-8.2)
[2019-01-25] MEDS ORDERED: MoRPHine SULFATE 4 MG/ML 1 ML CARP\\VIAL IV STA (22:55)
[2019-01-25 23:09] LABS: Lyme Ab IgG w/WB Rflx Negative (Negative); Lyme Ab IgM w/WB Rflx Negative (Negative)
[2019-01-26] MEDS ORDERED: OPTIRAY 320 125ml IV PRN (00:29)
[2019-01-26] MEDS: dilTIAZem HCL 125 MG in DEXTROSE 5% 100 ML IV SCH (00:47)
--- NOTE | 2019-01-26 02:18 | Emergency Department Note ---
History of Present Illness General Chief complaint: Chest Pain Stated complaint: CHEST PAINS , CARDIAC HISTORY, SOB History of Present Illness Maximum Pain Intensity: 8 This is a 59-year-old male presenting to the emergency department for evaluation of chest pain, upper abdominal pain, and racing of his heart. The patient does have a cardiac history and evidently has an ejection fraction around 25% on outside facility cath performed earlier this year. The patient does follow with [facility] cardiology and has a known history of atrial fibrillation. The patient's symptoms began around 1 AM today, which is approximately 20 hours prior to arrival. The patient has not had fevers or chills. No nausea or vomiting. He does not report any improvement with his normal daily medications and rates his overall discomfort a 9/10. The patient is accompanied by family who assist in the history and translate for the patient as [place] is not his first language. Home Medications Home Medications Medication Instructions Recorded Confirmed Type lisinopril 10 mg tablet 10 mg PO BID #60 tab 10/19/18 01/25/19 Rx nitroglycerin 0.4 mg sublingual 0.4 mg SL Q5M PRN #30 tab 10/19/18 01/25/19 Rx tablet rosuvastatin [Crestor] 5 mg PO QAM #30 tab 10/31/18 01/25/19 Rx docusate sodium 100 mg PO DAILY PRN 12/22/18 01/25/19 History pantoprazole 40 mg PO DAILY 12/22/18 01/25/19 History prednisone 10 mg PO DIRECTED #31 tab 12/22/18 01/25/19 Rx sennosides [Senno] 8.6 mg PO DAILY PRN 12/22/18 01/25/19 History spironolactone 25 mg PO DAILY 12/22/18 01/25/19 History cyclobenzaprine 5 mg tablet 5 mg PO TID PRN 5 Days #14 tab 12/27/18 01/25/19 Rx tramadol 50 mg tablet 50 mg PO HS PRN #10 tab 12/29/18 01/25/19 Rx benzonatate 100 mg capsule 100 mg PO TID PRN #30 cap 01/25/19 01/25/19 Rx furosemide 40 mg PO DAILY 01/25/19 01/25/19 History metoprolol succinate 50 mg PO BID 01/25/19 01/25/19 History tamsulosin 0.4 mg PO DAILY 01/25/19 01/25/19 History Allergies Allergy/AdvReac Type Severity Reaction Status Date / Time No Known Allergies Allergy Mild Verified 01/25/19 23:04 Past Med/Surg History Medical History Acid reflux disease (Acute) Atrial fibrillation with RVR (Acute) Cardiomyopathy (Acute) Chronic systolic (congestive) heart failure (Chronic) Compression fracture of L1 lumbar vertebra (Chronic) Dyslipidemia (Acute) HTN (hypertension) (Acute) Osteoporosis (Acute) Vitamin D deficiency (Acute) Surgical History Encounter for cardioversion procedure History of implantable cardiac defibrillator (ICD) Hx of tonsillectomy Family History Father Coronary heart disease Hypertension Mother Hypertension Brother Hypertension Social History Preferred Language: Cuban Communication Ability: Effective Communication Tools: Other 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 Beliefs That Will Affect Care: None marital status: Current Living Situation: Family current occupational status: disabled Feels Safe at Home: Yes Smoking Status: Never smoker Second Hand Exposure: No ; Hx Alcohol Use: No Hx Substance Use: No Seatbelt Use: always Review of Systems A total of 10 systems reviewed and were otherwise negative Physical Exam Vital Signs Vital Signs - 24 hr 01/25/19 21:51 01/25/19 22:11 01/25/19 22:13 Temperature 37.0 C Temperature Source Oral Pulse Rate 109 H Pulse Rate [Apical] 137 H Pulse Rate from SpO2 Sensor Pulse Rhythm Regular Pulse Strength Normal Respiratory Rate 22 26 H Respiratory Effort / Characteristics Non-Labored Spontaneous Labored Short of Breath Short of Breath Respiratory Depth Normal Deep Respiratory Pattern Regular Blood Pressure 151/113 H Blood Pressure [Left Arm] 126/103 H Blood Pressure Mean 125 Blood Pressure Mean [Left Arm] 110 Blood Pressure Position Lying Pulse Oximetry 97 97 97 Oxygen Delivery Method Room Air Room Air Sepsis Recent Fever Within 48 Hours No Sepsis Action Taken by Nursing No Action Required 01/25/19 22:15 01/25/19 22:37 01/25/19 22:42 Temperature Temperature Source Pulse Rate 102 H Pulse Rate [Apical] 127 H Pulse Rate from SpO2 Sensor 103 H Pulse Rhythm Pulse Strength Respiratory Rate 25 H 21 Respiratory Effort / Characteristics Respiratory Depth Respiratory Pattern Blood Pressure 125/88 Blood Pressure [Left Arm] 135/96 Blood Pressure Mean 107 Blood Pressure Mean [Left Arm] 109 Blood Pressure Position Pulse Oximetry 97 95 Oxygen Delivery Method Room Air Room Air Sepsis Recent Fever Within 48 Hours Sepsis Action Taken by Nursing 01/25/19 22:43 01/25/19 23:00 01/25/19 23:10 Temperature Temperature Source Pulse Rate 119 H Pulse Rate [Apical] 102 H 106 H Pulse Rate from SpO2 Sensor 112 H Pulse Rhythm Pulse Strength Respiratory Rate 20 18 18 Respiratory Effort / Characteristics Respiratory Depth Respiratory Pattern Blood Pressure Blood Pressure [Left Arm] 125/88 133/102 H Blood Pressure Mean Blood Pressure Mean [Left Arm] 100 112 Blood Pressure Position Pulse Oximetry 96 95 95 Oxygen Delivery Method Sepsis Recent Fever Within 48 Hours Sepsis Action Taken by Nursing 01/25/19 23:30 01/25/19 23:45 01/26/19 00:22 Temperature Temperature Source Pulse Rate 111 H Pulse Rate [Apical] 133 H 100 H Pulse Rate from SpO2 Sensor Pulse Rhythm Pulse Strength Respiratory Rate 20 22 Respiratory Effort / Characteristics Respiratory Depth Respiratory Pattern Blood Pressure 131/107 H Blood Pressure [Left Arm] 134/101 H 141/100 H Blood Pressure Mean 115 Blood Pressure Mean [Left Arm] 112 113 Blood Pressure Position Pulse Oximetry 96 95 96 Oxygen Delivery Method Room Air Room Air Room Air Sepsis Recent Fever Within 48 Hours Sepsis Action Taken by Nursing 01/26/19 00:30 01/26/19 00:45 01/26/19 01:00 Temperature Temperature Source Pulse Rate 111 H Pulse Rate [Apical] 120 H 113 H Pulse Rate from SpO2 Sensor 120 H Pulse Rhythm Pulse Strength Respiratory Rate 20 22 Respiratory Effort / Characteristics Respiratory Depth Respiratory Pattern Blood Pressure 144/98 H Blood Pressure [Left Arm] 130/86 135/97 Blood Pressure Mean 103 Blood Pressure Mean [Left Arm] 100 109 Blood Pressure Position Pulse Oximetry 96 96 Oxygen Delivery Method Sepsis Recent Fever Within 48 Hours Sepsis Action Taken by Nursing 01/26/19 01:15 01/26/19 01:30 01/26/19 02:00 Temperature Temperature Source Pulse Rate 113 H 105 H 107 H Pulse Rate [Apical] 105 H Pulse Rate from SpO2 Sensor 116 H 100 H 99 H Pulse Rhythm Pulse Strength Respiratory Rate 20 27 H 21 Respiratory Effort / Characteristics Respiratory Depth Respiratory Pattern Blood Pressure 145/88 H 123/80 132/85 Blood Pressure [Left Arm] 123/80 Blood Pressure Mean 99 99 93 Blood Pressure Mean [Left Arm] 94 Blood Pressure Position Pulse Oximetry 94 96 90 Oxygen Delivery Method Room Air Sepsis Recent Fever Within 48 Hours Sepsis Action Taken by Nursing 01/26/19 02:01 01/26/19 02:16 Temperature Temperature Source Pulse Rate 107 H Pulse Rate [Apical] 110 H Pulse Rate from SpO2 Sensor 102 H Pulse Rhythm Pulse Strength Respiratory Rate 22 20 Respiratory Effort / Characteristics Respiratory Depth Respiratory Pattern Blood Pressure 105/77 Blood Pressure [Left Arm] 132/85 Blood Pressure Mean 83 Blood Pressure Mean [Left Arm] 100 Blood Pressure Position Pulse Oximetry 93 88 L Oxygen Delivery Method Sepsis Recent Fever Within 48 Hours Sepsis Action Taken by Nursing VITALS: Vitals are noted on the nurse's note and reviewed by myself. Vital signs with slight elevation of blood pressure. GENERAL: Well-developed, well-nourished, white male who appears in mild discomfort. HEAD: Normocephalic atraumatic. . Uvula midline. Airway patent. NECK: Supple without nuchal rigidity. No lymphadenopathy. No thyromegaly. Cervical spine is nontender. HEART: Regular rate and rhythm without murmurs gallops or rubs. LUNGS: Clear to auscultation bilaterally without wheezes, rales or rhonchi. No retractions or accessory muscle use. ABDOMEN: Positive normal bowel sounds x 4. Soft, nontender, without masses or organomegaly. No guarding or rebound tenderness. MUSCULOSKELETAL: No muscle atrophy, erythema, or edema noted. Full range of motion in all extremities. NEURO: Patient was alert and oriented to person place and time. CN II through XII grossly intact. No focal neurological deficits. Deep tendon reflexes 2+ throughout. SKIN: The skin was without rashes, erythema, edema, or bruising. Capillary refill less than 2 seconds. Course Administered Medications Diltiazem HCl 125 mg/ Dextrose 125 mls @ 5 mls/hr IV .Q24H [facility]; Protocol Stop: 02/24/19 22:14 Last Admin: 01/26/19 00:47 Dose: 7.5 mg/hr, 7.5 mls/hr Documented by: [id number] Cosigned by: [id number] Titration: 01/26/19 00:47 Dose: 5 mg/hr, 5 mls/hr Documented by: [id number] Cosigned by: [id number] Admin: 01/25/19 22:41 Dose: 5 mg/hr, 5 mls/hr Documented by: [id number] Cosigned by: [id number] Heparin Sodium/Dextrose (Heparin Sodium/Dextrose) 25,000 units in 500 mls @ 27 mls/hr IV .[id number] [facility]; Protocol Stop: 02/25/19 02:44 Last Admin: 01/26/19 03:00 Dose: 1,350 units/hr, 27 mls/hr Documented by: [id number] Cosigned by: [id number] Morphine Sulfate (Morphine Sulfate) 2 mg IV Q3H PRN PRN Reason: Moderate Pain Stop: 02/09/19 02:40 Last Admin: 01/26/19 03:00 Dose: 2 mg Documented by: [id number] Discontinued Medications Diltiazem HCl (Cardizem) 15 mg IV NOW STA Stop: 01/25/19 22:28 Last Admin: 01/25/19 22:35 Dose: 15 mg Documented by: [id number] Cosigned by: [id number] Heparin Sodium/Dextrose () 1 ea N/A NOW STA; Protocol Stop: 01/26/19 02:42 Last Admin: 01/26/19 03:48 Dose: 1 ea Documented by: [id number] Famotidine 20 mg/ Syringe 5 mls @ 2.5 mls/min IV ONCE ONE Stop: 01/26/19 02:42 Last Admin: 01/26/19 04:37 Dose: 2.5 mls/min Documented by: [id number] Ioversol (Optiray 320 125ml) 125 ml IV ONCE PRN PRN Reason: Interaction Checking Stop: 01/30/19 00:28 Last Admin: 01/26/19 00:30 Dose: 118 ml Documented by: [id number] Morphine Sulfate (Morphine Sulfate) 4 mg IV NOW STA Stop: 01/25/19 22:56 Last Admin: 01/25/19 23:11 Dose: 4 mg Documented by: [id number] Medical Decision Making Differential Diagnosis Differential diagnosis includes, but is not limited to: Myocardial infarction, dysrhythmia, pericarditis, pneumothorax, aortic aneurysm/dissection, DVT/PE, anxiety, GERD, PUD, electrolyte imbalance, thyroid disorder, pneumonia, bronch itis, pancreatitis, and others Laboratory Data Result diagrams: 01/25/19 22:07 01/25/19 22:07 Lab Results 01/25/19 01/25/19 01/25/19 Range/Units 22:07 22:07 22:07 WBC 10.22 (4.8-10.8) K/uL RBC 4.90 (4.7-6.1) M/uL Hgb 15.3 (14.0-18.0) g/dL Hct 44.3 (42-52) % MCV 90.4 (80-100) fL MCH 31.2 (25-34) pg MCHC 34.5 (32-36) g/dL RDW Std Deviation 52.2 H (36.4-46.3) fL RDW Coeff of Rachana 15.8 H (11.5-14.5) % Plt Count 203 (130-400) K/uL MPV 11.1 H (7.4-10.4) fL Immature Gran % (Auto) 0.3 % Neut % (Auto) 61.4 % Lymph % (Auto) 23.5 % Dickey % (Auto) 13.2 % Eos % (Auto) 1.5 % Baso % (Auto) 0.1 % Immature Gran # (Auto) 0.03 H (0.00-0.02) K/uL Neut # (Auto) 6.28 (1.4-6.5) K/uL Lymph # (Auto) 2.40 (1.2-3.4) K/uL Dickey # (Auto) 1.35 H (0.11-0.59) K/uL Eos # (Auto) 0.15 (0-0.5) K/uL Baso # (Auto) 0.01 (0-0.2) K/uL PT 11.9 (9.0-12.0) Seconds INR 1.2 H (0.9-1.1) APTT 29.0 (21.0-31.0) Seconds PTT Ratio 1.1 Sodium 140 (136-145) mmol/L Potassium 3.9 (3.5-5.1) mmol/L Chloride 110 H (98-107) mmol/L Carbon Dioxide 23 (21-32) mmol/L Anion Gap 7.0 (3-11) BUN 17 (7-18) mg/dl Creatinine 0.89 (0.6-1.4) mg/dl Est Cr Clr Drug Dosing Not Reportable Est GFR ( Amer) 109.2 Est GFR (Non-Af Amer) 94.3 BUN/Creatinine Ratio 18.7 (10-20) Glucose 110 H (70-99) mg/dl Calcium 9.3 (8.5-10.1) mg/dl Magnesium 1.9 (1.8-2.4) mg/dl Total Bilirubin 2.1 H (0.2-1) mg/dl AST 46 H (15-37) U/L ALT 52 (12-78) U/L Alkaline Phosphatase 133 H (45-117) U/L Troponin I 4.920 H* (0-0.045) ng/ml Total Protein 7.4 (6.4-8.2) gm/dl Albumin 3.9 (3.4-5.0) gm/dl Globulin 3.5 (2.5-4.0) gm/dl Albumin/Globulin Ratio 1.1 (0.9-2) Lipase 65 L (73-393) U/L TSH 1.570 (0.300-4.500) uIu/ml Lyme Disease IgG Ab (Negative) Lyme Disease IgM Ab (Negative) 01/25/19 Range/Units 22:07 WBC (4.8-10.8) K/uL RBC (4.7-6.1) M/uL Hgb (14.0-18.0) g/dL Hct (42-52) % MCV (80-100) fL MCH (25-34) pg MCHC (32-36) g/dL RDW Std Deviation (36.4-46.3) fL RDW Coeff of Rachana (11.5-14.5) % Plt Count (130-400) K/uL MPV (7.4-10.4) fL Immature Gran % (Auto) % Neut % (Auto) % Lymph % (Auto) % Dickey % (Auto) % Eos % (Auto) % Baso % (Auto) % Immature Gran # (Auto) (0.00-0.02) K/uL Neut # (Auto) (1.4-6.5) K/uL Lymph # (Auto) (1.2-3.4) K/uL Dickey # (Auto) (0.11-0.59) K/uL Eos # (Auto) (0-0.5) K/uL Baso # (Auto) (0-0.2) K/uL PT (9.0-12.0) Seconds INR (0.9-1.1) APTT (21.0-31.0) Seconds PTT Ratio Sodium (136-145) mmol/L Potassium (3.5-5.1) mmol/L Chloride (98-107) mmol/L Carbon Dioxide (21-32) mmol/L Anion Gap (3-11) BUN (7-18) mg/dl Creatinine (0.6-1.4) mg/dl Est Cr Clr Drug Dosing Est GFR ( Amer) Est GFR (Non-Af Amer) BUN/Creatinine Ratio (10-20) Glucose (70-99) mg/dl Calcium (8.5-10.1) mg/dl Magnesium (1.8-2.4) mg/dl Total Bilirubin (0.2-1) mg/dl AST (15-37) U/L ALT (12-78) U/L Alkaline Phosphatase (45-117) U/L Troponin I (0-0.045) ng/ml Total Protein (6.4-8.2) gm/dl Albumin (3.4-5.0) gm/dl Globulin (2.5-4.0) gm/dl Albumin/Globulin Ratio (0.9-2) Lipase (73-393) U/L TSH (0.300-4.500) uIu/ml Lyme Disease IgG Ab Negative (Negative) Lyme Disease IgM Ab Negative (Negative) Imaging Data Radiologist's Impression: Preliminary Findings Only See Final Report For Complete Findings CTA CHEST: CT abdomen and pelvis Findings: Small bilateral pleural effusion. Cardiomegaly, pulmonary vascular congestion, mild CHF may be present. 5 mm probable scarring near the right minor fissure negative for any suspicious lung nodules. Normal caliber of the aorta. Moderate enlargement of the left atrium and ventricle. Negative for right heart strain. Pulmonary artery is not well opacified. Negative for any central pulmonary embolism. Caliber of the pulmonary artery is normal. Abdomen: Small hiatal hernia. Mild panniculitis Noted around the superior mesenteric vessels. Liver, spleen, gallbladder, adrenals, pancreas, retroperitoneum are unremarkable. Scattered colonic stool. Minimal left-sided diverticulosis. Negative for diverticulitis. Appendix is visualized and normal. Prostate is slightly enlarged. Urinary bladder is unremarkable. Small left inguinal fat-containing hernia. Bones: Chronic compression deformities of the L1 and L4.. No lytic or blastic bony lesion. Impression: 1. Small bilateral pleural effusion. 2. Cardiomegaly with left atrium and left ventricular enlargement. 3. Negative for central pulmonary embolism. 4. Slightly enlarged prostate. 5. Chronic compression deformities at L1 and L4. ECG Data Additional Comments: EKG#1: Atrial fibrillation with rapid ventricular response @147 bpm Minimal voltage criteria for LVH, may be normal variant Septal infarct - age undetermined ST & T wave abnormality, consider lateral ischemia Abnormal ECG When compared with ECG of 30-OCT-2018 10:24, Vent. rate has increased BY 65 BPM EKG#2 Atrial fibrillation with rapid ventricular response @112 Minimal voltage criteria for LVH, may be normal variant Septal infarct (cited on or before 25-JAN-2019) ST & T wave abnormality, conside r anterolateral ischemia Abnormal ECG When compared with ECG of 25-JAN-2019 21:54, (unconfirmed) No significant change was found MDM Narrative Physical exam and history were performed. Nursing notes, EMR, and Medication List were personally reviewed. Patient appears to have chest discomfort and palpitations bring him to the ER. EKG was performed and the patient is in atrial fibrillation with rapid ventricular response. IV access was established and labs were obtained. The patient was placed on the cardiac monitor technician. The case was discussed with my attending physician. Because of the patient's symptoms and history he was started on Cardizem drip and bolus. The patient's blood work is as above and was reviewed. He does not have a signi ficantly elevated white blood cell count or gross anemia. INR is 1.2. Lipase and transaminases are not diagnostic. Unfortunately the patient does have a markedly elevated troponin at 4.92. On reevaluation a second EKG continues to show A. fib with RVR, however the rate is improved. He may have some lateral ischemic findings. The patient continued to have some vague epigastric abdominal pain and I did provide him IV morphine. He was sent to CT scan to rule out vascular catastrophe. CT scan was reviewed by myself and radiology, and does not show dissection or aneurysm. Overall the patient does not appear well for discharge home. The patient case was discussed with the hospitalist team, who agreed to evaluate the patient here in the ER. Please see their dictation for further patient course, plan, and disposition. The chart was completed utilizing [employer] Speech Voice Recognition Software. Grammatical errors, random word insertions, pronoun errors, and incomplete sentences are an occasional consequence of this system due to software limitations, ambient noise, and hardware issues. Any formal questions or concerns about the content, text, or information contained within the body of this dictation should be directly addressed to the provider for clarification. . Impression & Plan NSTEMI (non-ST elevated myocardial infarction), Atrial fibrillation with RVR, Elevated troponin Critical Care Time I have personally spent greater than 55 minutes of critical care time in the direct management of this patient. This includes bedside care, interpretation of diagnostic studies, and testing, discussion with consultants, patient, and family members, and other required patient management activities. This 55 minutes is in excess of all separately billable procedures. Discharge Plan Visit Data *Final* Discharge Date/Time: 01/26/19 03:11 Chief Complaint: Chest Pain Stated Complaint: CHEST PAINS , CARDIAC HISTORY, SOB ED Provider: Alan Deutsch ED Midlevel Provider: Daryn Harris Discharge Problem: NSTEMI (non-ST elevated myocardial infarction), Atrial fibrillation with RVR, E levated troponin Patient Disposition: Admitted As Inpatient Discharge Instructions Interventions: ED Discharge Assessment Last Done: 01/26/19 03:11
[2019-01-26] MEDS ORDERED: FAMOTIDINE 20 MG in SYRINGE 3 ML IV ONE (02:41)
[2019-01-26] MEDS ORDERED: MoRPHine SULFATE 4 MG/ML 1 ML CARP\\VIAL IV PRN (02:41)
[2019-01-26] MEDS ORDERED: LORazepam 0.5 MG/1 ML VIAL IV PRN (02:41)
[2019-01-26] MEDS ORDERED: ACETAMINOPHEN 325 MG TAB PO PRN (02:41)
[2019-01-26] MEDS ORDERED: Heparin IV Standard *NO* Bolus STA (02:41)
[2019-01-26] MEDS: HEPARIN SODIUM/DEXTROSE 25,000 UNITS/500 ML BAG IV SCH ×2 (03:00→20:04)
[2019-01-26] MEDS: MoRPHine SULFATE 2 MG/ML CARP IV PRN ×2 (03:00→11:19)
--- NOTE | 2019-01-26 03:23 | History & Physical Report ---
Date of Service January 26, 2019 Assessment & Plan (1) NSTEMI (non-ST elevated myocardial infarction): Admit PCU Heparin gtt aspirin Cardiology consult trend trops prn NTG DVT prophylaxis = SCDs and heparin gtt. (2) Atrial fibrillation with RVR: Heparin gtt Cardizem gtt continue metoprolol (3) Cardiomyopathy: EF noted to be 25% Has ICD (4) Chronic systolic (congestive) heart failure: Continue Lasix and spironolactone. continue lisinopril (5) Acid reflux disease: continue pantoprazole (6) HTN (hypertension): (7) Dyslipidemia: Continue Crestor. History of Present Illness 59 y/o male presented to the ED with a 24 hour history of racing heart rate and chest and upper abdominal pain. Patient has a history of A-fib. He is not currently on anticoagulation. Chest pain is non-radiating with no associated SOB or diaphoresis. No F/C, cough, flu-like symptoms, N/V/D, or headache. He was found to be in A-fib with RVR and placed on Cardizem gtt. Patient is Taiwanese speaking and is agreeable for his son to translate. . Primary Care Provider: Rosalind Motley MD Allergies Allergy/AdvReac Type Severity Reaction Status Date / Time No Known Allergies Allergy Mild Verified 01/25/19 23:04 Home Medications Home Medications Medication Instructions Recorded Confirmed Type lisinopril 10 mg tablet 10 mg PO BID #60 tab 10/19/18 01/25/19 Rx nitroglycerin 0.4 mg sublingual 0.4 mg SL Q5M PRN #30 tab 10/19/18 01/25/19 Rx tablet rosuvastatin [Crestor] 5 mg PO QAM #30 tab 10/31/18 01/25/19 Rx docusate sodium 100 mg PO DAILY PRN 12/22/18 01/25/19 History pantoprazole 40 mg PO DAILY 12/22/18 01/25/19 History prednisone 10 mg PO DIRECTED #31 tab 12/22/18 01/25/19 Rx sennosides [Senno] 8.6 mg PO DAILY PRN 12/22/18 01/25/19 History spironolactone 25 mg PO DAILY 12/22/18 01/25/19 History cyclobenzaprine 5 mg tablet 5 mg PO TID PRN 5 Days #14 tab 12/27/18 01/25/19 Rx tramadol 50 mg tablet 50 mg PO HS PRN #10 tab 12/29/18 01/25/19 Rx benzonatate 100 mg capsule 100 mg PO TID PRN #30 cap 01/25/19 01/25/19 Rx furosemide 40 mg PO DAILY 01/25/19 01/25/19 History metoprolol succinate 50 mg PO BID 01/25/19 01/25/19 History tamsulosin 0.4 mg PO DAILY 01/25/19 01/25/19 History Past Med/Surg History Medical History Acid reflux disease (Acute) Atrial fibrillation with RVR (Acute) Cardiomyopathy (Acute) Chronic systolic (congestive) heart failure (Chronic) Compression fracture of L1 lumbar vertebra (Chronic) Dyslipidemia (Acute) HTN (hypertension) (Acute) Osteoporosis (Acute) Vitamin D deficiency (Acute) Surgical History Encounter for cardioversion procedure History of implantable cardiac defibrillator (ICD) Hx of tonsillectomy Family History Father Coronary heart disease Hypertension Mother Hypertension Brother Hypertension Social History Preferred Language: [place]ese Communication Ability: Effective Communication Tools: Other Director Fixed Income Required: Yes, Video and Voice Beliefs That Will Affect Care: None marital status: Current Living Situation: Family current occupational status: disabled Feels Safe at Home: Yes Smoking Status: Never smoker Second Hand Exposure: No ; Hx Alcohol Use: No Hx Substance Use: No Seatbelt Use: always Review of Systems Review of Systems: All systems reviewed & are unremarkable except as noted in HPI & below Physical Exam Physical Exam: General- adult male NAD. Head- atraumatic Eyes- PERRL, EOMI, anicteric ENT- oropharynx clear Neck- supple, no JVD, no adenopathy, no thyromegaly. Lungs- CTA b/l no R/R/W. Heart- Irreg, II/ systolic murmur, no gallop, no rub appreciated Abdomen- normal bowel sounds, soft, mild diffuse tenderness. 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 Skin- warm & dry Results & Data Vital Signs (Past 12 Hours) Vital Signs Temp Pulse Pulse Resp BP BP Pulse Ox 01/26/19 03:01 100 H 18 126/81 96 01/26/19 02:45 99 H 31 H 104/80 95 01/26/19 02:16 107 H 20 105/77 88 L 01/26/19 02:01 110 H 22 132/85 93 01/26/19 02:00 107 H 21 132/85 90 01/26/19 01:30 105 H 105 H 27 H 123/80 123/80 96 01/26/19 01:15 113 H 20 145/88 H 94 01/26/19 01:00 113 H 135/97 01/26/19 00:45 120 H 22 130/86 96 01/26/19 00:30 111 H 20 144/98 H 96 01/26/19 00:22 100 H 22 141/100 H 96 01/25/19 23:45 111 H 20 131/107 H 95 01/25/19 23:30 133 H 134/101 H 96 01/25/19 23:10 119 H 18 95 01/25/19 23:00 106 H 18 133/102 H 95 01/25/19 22:43 102 H 20 125/88 96 01/25/19 22:42 102 H 21 125/88 95 01/25/19 22:37 127 H 25 H 135/96 97 01/25/19 22:13 137 H 26 H 126/103 H 97 01/25/19 22:11 97 01/25/19 21:51 37.0 C 109 H 22 151/113 H 97 Laboratory Results Laboratory Results WBC 10.22 K/uL (4.8-10.8) 01/25/19 22:07 RBC 4.90 M/uL (4.7-6.1) 01/25/19 22:07 Hgb 15.3 g/dL (14.0-18.0) 01/25/19 22:07 Hct 44.3 % (42-52) 01/25/19 22:07 MCV 90.4 fL (80-100) 01/25/19 22:07 MCH 31.2 pg (25-34) 01/25/19 22:07 MCHC 34.5 g/dL (32-36) 01/25/19 22:07 RDW Std Deviation 52.2 fL (36.4-46.3) H 01/25/19 22:07 RDW Coeff of Rachana 15.8 % (11.5-14.5) H 01/25/19 22:07 Plt Count 203 K/uL (130-400) 01/25/19 22:07 MPV 11.1 fL (7.4-10.4) H 01/25/19 22:07 Immature Gran % (Auto) 0.3 % 01/25/19 22:07 Neut % (Auto) 61.4 % 01/25/19 22:07 Lymph % (Auto) 23.5 % 01/25/19 22:07 Heard % (Auto) 13.2 % 01/25/19 22:07 Eos % (Auto) 1.5 % 01/25/19 22:07 Baso % (Auto) 0.1 % 01/25/19 22:07 Immature Gran # (Auto) 0.03 K/uL (0.00-0.02) H 01/25/19 22:07 Neut # (Auto) 6.28 K/uL (1.4-6.5) 01/25/19 22:07 Lymph # (Auto) 2.40 K/uL (1.2-3.4) 01/25/19 22:07 Heard # (Auto) 1.35 K/uL (0.11-0.59) H 01/25/19 22:07 Eos # (Auto) 0.15 K/uL (0-0.5) 01/25/19 22:07 Baso # (Auto) 0.01 K/uL (0-0.2) 01/25/19 22:07 PT 11.9 Seconds (9.0-12.0) 01/25/19 22:07 INR 1.2 (0.9-1.1) H 01/25/19 22:07 APTT 29.0 Seconds (21.0-31.0) 01/25/19 22:07 PTT Ratio 1.1 01/25/19 22:07 Sodium 140 mmol/L (136-145) 01/25/19 22:07 Potassium 3.9 mmol/L (3.5-5.1) 01/25/19 22:07 Chloride 110 mmol/L (98-107) H 01/25/19 22:07 Carbon Dioxide 23 mmol/L (21-32) 01/25/19 22:07 Anion Gap 7.0 (3-11) 01/25/19 22:07 BUN 17 mg/dl (7-18) 01/25/19 22:07 Creatinine 0.89 mg/dl (0.6-1.4) 01/25/19 22:07 Est Cr Clr Drug Dosing Not Reportable 01/25/19 22:07 Est GFR ( Amer) 109.2 01/25/19 22:07 Est GFR (Non-Af Amer) 94.3 01/25/19 22:07 BUN/Creatinine Ratio 18.7 (10-20) 01/25/19 22:07 Glucose 110 mg/dl (70-99) H 01/25/19 22:07 Calcium 9.3 mg/dl (8.5-10.1) 01/25/19 22:07 Magnesium 1.9 mg/dl (1.8-2.4) 01/25/19 22:07 Total Bilirubin 2.1 mg/dl (0.2-1) H 01/25/19 22:07 AST 46 U/L (15-37) H 01/25/19 22:07 ALT 52 U/L (12-78) 01/25/19 22:07 Alkaline Phosphatase 133 U/L (45-117) H 01/25/19 22:07 Troponin I 4.920 ng/ml (0-0.045) H* 01/25/19 22:07 Total Protein 7.4 gm/dl (6.4-8.2) 01/25/19 22:07 Albumin 3.9 gm/dl (3.4-5.0) 01/25/19 22:07 Globulin 3.5 gm/dl (2.5-4.0) 01/25/19 22:07 Albumin/Globulin Ratio 1.1 (0.9-2) 01/25/19 22:07 Lipase 65 U/L (73-393) L 01/25/19 22:07 TSH 1.570 uIu/ml (0.300-4.500) 01/25/19 22:07 Lyme Disease IgG Ab Negative (Negative) 01/25/19 22:07 Lyme Disease IgM Ab Negative (Negative) 01/25/19 22:07 Code Status & VTE Plan VTE Prophylaxis Plan VTE Prophylaxis will be ordered: Yes PG Care Time/CCT Total # of Minutes Spent Total Time Spent: 65 Total Time Spent with Patient: Total time spent is greater than 50% in coordination of care (as documented) at patient's floor/unit and/or counseling patient:
[2019-01-26] MEDS ORDERED: ONDANSETRON INJ 2 MG/ML 2 ML VIAL IV PRN (03:38)
[2019-01-26] MEDS ORDERED: NITROGLYCERIN SL 0.4 MG/TAB TAB SL PRN (03:38)
--- NOTE | 2019-01-26 06:51 | CT Scan Report ---
Study: CT angiogram abdomen and pelvis HISTORY: Pain FINDINGS: Cardiac enlargement. Minimal dependent basilar atelectatic change. Basilar bronchovascular prominence. Trace basilar pleural fluid. The arterial structures of the abdomen and pelvis are unremarkable. There is no evidence for aneurysm or significant stenotic process. There is suggestion of filling defect of the splenic artery at the splenic hilum. Findings of a splenic infarct. There is suggestion of potential thrombus within the distal splenic ar elyssa at the level of the splenic hilum. Major organ structures the abdomen and pelvis are otherwise unremarkable. Normal appendix. Nonobstruc tive bowel pattern. Compression deformities of L1 and L4 considered chronic. IMPRESSION: 1. 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 2. 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 3. Vascular structures of the abdomen and pelvis are otherwise unremarkable. 4 nonobstructive bowel pattern. Electronically signed by: Arcadio Ortiz M.D. 01/26/2019 6:50 AM
[2019-01-26 07:27] LABS: Hematocrit (blood only) 43.2 % (42-52); Hemoglobin 14.5 g/dL (14.0-18.0); Mean Corpuscular Hemoglobin 30.1 pg (25-34); Mean Corpuscular Hgb Conc 33.6 g/dL (32-36); Mean Corpuscular Volume 89.8 fL (80-100); Mean Platelet Volume 11.3 fL (7.4-10.4); Platelet Count 184 K/uL (130-400); RDW Coefficient of Variation 15.8 % (11.5-14.5); RDW Standard Deviation 51.9 fL (36.4-46.3); Red Blood Count 4.81 M/uL (4.7-6.1); White Blood Count 9.92 K/uL (4.8-10.8)
--- NOTE | 2019-01-26 07:58 | CT Scan Report ---
CT angio chest dissec wo/w con HISTORY: 59 years-old Male Chest/belly pain. Elevated trop acute chest and abdominal pain COMPARISON: CT abdomen and pelvis of same day, lumbar spine radiographs 12/22/2018, MR lumbar spine TECHNIQUE: CTA of the chest was obtained both with and without the use of 118 mL Optiray 320 IV contr ast. 3-D coronal and sagittal MIPS were obtained from the axial data set and were submitted for revie w. 3-D coronal and sagittal MIPS were obtained from the axial data set and were submitted for review. All measurements were obtained according to NASCET criteria. A dose lowering technique was used cons istent with the principals mackenzie HUMPHRIES. FINDINGS: CTA: Marked cardiomegaly. No pericardial effusion. No thoracic aortic aneurysm or dissection. Patency of t he imaged great vessels. Mild tortuosity of the descending thoracic aorta. No intramural hematoma cynthia ntified on the noncontrast scan. The pulmonary artery is suboptimally opacified. No central filling d efects identified to suggest pulmonary thromboembolic disease. CT CHEST: Unremarkable thyroid. Prominent prevascular, and AP window lymph nodes measure up to 9 mm, likely leigh ann ctive. Trace pleural effusions. No pneumothorax. Bilateral intralobular septal thickening is noted al bandar with bronchial wall thickening and mild subsegmental bibasilar groundglass opacities suggestive o f atelectasis. No focal airspace consolidation typical for pneumonia. Central airways appear patent. Soft tissues are unremarkable. There is a large infarct of the mid spleen, 5.6 x 6.6 cm with distal s plenic artery occlusion. Please refer to CT abdomen and pelvis exam of same day for further discussio n of the abdomen and pelvis findings. L1 and L4 compression deformities. IMPRESSION: 1. Unremarkable CTA of the chest without evidence of thoracic aortic aneurysm or dissection. 2. Marked cardiomegaly with interstitial pulmonary edema and trace pleural effusions. 3. Large acute appearing splenic infarct with distal splenic artery occlusion. The above report was generated using voice recognition software. It may contain grammatical, syntax o r spelling errors. Electronically signed by: Sagar Lorenzo M.D. 01/26/2019 7:57 AM
[2019-01-26] MEDS: PANTOprazole 40 MG TAB PO SCH (08:09)
[2019-01-26] MEDS: ASPIRIN 81 MG ECTAB PO SCH (08:09)
[2019-01-26] MEDS: FUROSEMIDE 40 MG TAB PO SCH (08:09)
[2019-01-26] MEDS: ROSUVASTATIN CALCIUM 5 MG TAB PO SCH (08:09)
[2019-01-26] MEDS: METOPROLOL SUCC 50MG EXT REL TAB PO SCH ×2 (08:09→21:47)
[2019-01-26] MEDS: TAMSULOSIN HCL 0.4 MG CAP PO SCH (08:09)
[2019-01-26 08:10] LABS: BUN Creatinine Ratio 14.9 (10-20); Calcium 8.9 mg/dl (8.5-10.1); Creatinine Clr Calc Pharmacy 102.8 ml/min; Est GFR (African American) 112.4; Potassium 3.7 mmol/L (3.5-5.1)
[2019-01-26] MEDS: SPIRONOLACTONE 25 MG TAB PO SCH (08:10)
[2019-01-26 08:12] LABS: Appearance Urine Clear (Clear); Bilirubin Urine Negative (Negative); Blood Urine Negative (Negative); Color Urine Yellow; Glucose Urine UA Negative (Negative); Ketones Urine Negative (Negative); Leukocyte Esterase Urine Negative (Negative); Nitrite Urine Negative (Negative); Protein Urine Negative (Negative); Specific Gravity Urine > 1.045 (1.000-1.030); Urobilinogen Urine Negative (Negative)
[2019-01-26 08:16] LABS: Troponin I 4.4 ng/ml (0-0.045)
[2019-01-26] MEDS ORDERED: COUGH DROP (SUGAR FREE) LOZ 24 LOZ/1 BOX BUCCAL ONE (08:27)
[2019-01-26] MEDS ORDERED: lisinopriL 10 MG TAB PO SCH (09:00)
[2019-01-26 09:44] LABS: Partial Thromboplastin Ratio 1.7
[2019-01-26 09:48] LABS: Partial Thromboplastin Time 46.5 Seconds (21.0-31.0)
--- NOTE | 2019-01-26 10:11 | Consultation ---
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 Explained that typically, conservative measures are applied first and surgical therapy reserved for complications such as rupture, infection/ abscess. At this point, I would continue heparin drip, limit strenuous activities for 6 weeks minimum (will need note for physical therapy as he was undergoing this for his back), slow advancement of diet (gastric ileus can occur). Most splenic infarctions do not require splenectomy but as this is a risk, I would recommend he receive his vaccinations for H.flu, meningococcus and pneumococcus whenever medically feasible. OK to ambulate when stable. Will advance diet to clear liquids and OK to advance as tolerated. Explained the pain from infarction may take a few weeks to resolve. Will sign off - please call if questions. Present on Admission?: Yes (2) Atrial fibrillation with RVR: Elevated troponin c/w CO. Plan as per medicine. 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 Presented to ER with complaints of heart racing, chest and upper abdominal pain. Has history of atrial fibrillation but was not on anticoagulation. Currently, heart racing has improved. Pain is central upper abdomen, sometimes like a band of pain, no nausea or vomiting. No similar symptoms in past. Slightly worse on left side. Allergies Allergy/AdvReac Type Severity Reaction Status Date / Time No Known Allergies Allergy Mild Verified 01/25/19 23:04 Home Medications Home Medications Medication Instructions Recorded Confirmed Type lisinopril 10 mg tablet 10 mg PO BID #60 tab 10/19/18 01/25/19 Rx nitroglycerin 0.4 mg sublingual 0.4 mg SL Q5M PRN #30 tab 10/19/18 01/25/19 Rx tablet rosuvastatin [Crestor] 5 mg PO QAM #30 tab 10/31/18 01/25/19 Rx docusate sodium 100 mg PO DAILY PRN 12/22/18 01/25/19 History pantoprazole 40 mg PO DAILY 12/22/18 01/25/19 History prednisone 10 mg PO DIRECTED #31 tab 12/22/18 01/25/19 Rx sennosides [Senno] 8.6 mg PO DAILY PRN 12/22/18 01/25/19 History spironolactone 25 mg PO DAILY 12/22/18 01/25/19 History cyclobenzaprine 5 mg tablet 5 mg PO TID PRN 5 Days #14 tab 12/27/18 01/25/19 Rx tramadol 50 mg tablet 50 mg PO HS PRN #10 tab 12/29/18 01/25/19 Rx benzonatate 100 mg capsule 100 mg PO TID PRN #30 cap 01/25/19 01/25/19 Rx furosemide 40 mg PO DAILY 01/25/19 01/25/19 History metoprolol succinate 50 mg PO BID 01/25/19 01/25/19 History tamsulosin 0.4 mg PO DAILY 01/25/19 01/25/19 History Patient History Medical History Acid reflux disease (Acute) Atrial fibrillation with RVR (Acute) Cardiomyopathy (Acute) Chronic systolic (congestive) heart failure (Chronic) Compression fracture of L1 lumbar vertebra (Chronic) Dyslipidemia (Acute) HTN (hypertension) (Acute) Osteoporosis (Acute) Vitamin D deficiency (Acute) Surgical History Encounter for cardioversion procedure History of implantable cardiac defibrillator (ICD) Hx of tonsillectomy Family History Father Coronary heart disease Hypertension Mother Hypertension Brother Hypertension Social History Preferred Language: Montserratian Communication Ability: Effective Communication Tools: Other Motor Vehicle Clerk Required: Yes Beliefs That Will Affect Care: None marital status: Current Living Situation: Family current occupational status: disabled Feels Safe at Home: Yes Smoking Status: Never smoker Second Hand Exposure: No ; Hx Alcohol Use: No Hx Substance Use: No Seatbelt Use: always Review of Systems Review of Systems: All systems reviewed & are unremarkable except as noted in HPI & below Physical Exam Constitutional: WD/WN, vitals as above Eyes: PERRL, conjunctivae normal, anicteric sclerae Respiratory: normal respiratory effort, lungs clear to auscultation Cardiovascular: Heart Sounds: no murmur irregular heart rate, no tachycardia currently Gastrointestinal (Abdomen): Inspection/Auscultation: abdomen normal to inspection and normal bowel sounds Percussion/Palpation: + abdomen tender (mid epigastric area with guarding) Musculoskeletal: no cyanosis or clubbing, extremities motor strength 5/5 Neurologic: moves all extremities; no focal motor deficits Psychiatric: A+Ox3, euthymic affect Results & Data Vital Signs (Past 12 Hours) Vital Signs Temp Pulse Pulse Resp BP BP Pulse Ox 01/26/19 07:59 36.8 C 93 H 18 130/85 95 01/26/19 03:30 36.6 C 87 18 146/76 H 95 01/26/19 03:01 100 H 18 126/81 96 01/26/19 02:45 99 H 31 H 104/80 95 01/26/19 02:16 107 H 20 105/77 88 L 01/26/19 02:01 110 H 22 132/85 93 01/26/19 02:00 107 H 21 132/85 90 01/26/19 01:30 105 H 105 H 27 H 123/80 123/80 96 01/26/19 01:15 113 H 20 145/88 H 94 01/26/19 01:00 113 H 135/97 01/26/19 00:45 120 H 22 130/86 96 01/26/19 00:30 111 H 20 144/98 H 96 01/26/19 00:22 100 H 22 141/100 H 96 01/25/19 23:45 111 H 20 131/107 H 95 01/25/19 23:30 133 H 134/101 H 96 01/25/19 23:10 119 H 18 95 01/25/19 23:00 106 H 18 133/102 H 95 01/25/19 22:43 102 H 20 125/88 96 01/25/19 22:42 102 H 21 125/88 95 01/25/19 22:37 127 H 25 H 135/96 97 01/25/19 22:13 137 H 26 H 126/103 H 97 01/25/19 22:11 97 Laboratory Results H/H 14.5/ 43.2 troponin 4.4 (peaked at 4.9) Diagnostic Findings CT scan reviewed and shows splenic infarct with suggestion of arterial thrombus at distal splenic artery, no sign of rupture/ abscess
--- NOTE | 2019-01-26 13:22 | Cardiology Consultation ---
Date of Consultation January 26, 2019 Assessment & Plan (1) NSTEMI (non-ST elevated myocardial infarction): He does have notably elevated cardiac biomarkers. Was not felt to have significant coronary disease earlier in the year on coronary angiography. His symptoms did include some element of chest discomfort, this was also in the setting of a splenic infarct. He had rapid ventricular rates. He has a known cardiomyopathy. I think we can continue to trend his markers but I do not bel ieve this is likely an acute coronary syndrome. This is more likely a type 2 infarct related to demand ischemia in the setting of severely reduced LV systolic function. Will continue his anti-lipid agent, beta-tawny and initiate anticoagulation. (2) Cardiomyopathy: He is severely reduced LV systolic function is felt to be related to a nonischemic cardiomyopathy. In the past there was some concern this may been a rate-related cardiomyopathy. However, on an outpatient basis is overall heart rates appear to be reasonably well controlled. He has not had improvement in his LV function. Likely does have an element of pulmonary vascular congestion but this seems mild. He does have some mild dyspnea on occasion but is generally well compensated. We will continue on his beta-tawny, Marquis inhibitor and spironolactone. I think we can change his diuretic to an intravenous preparation while he is inpatient. We will monitor his electrolytes and renal function closely (3) Atrial fibrillation with RVR: His heart rates are improved with better analgesia and diltiazem infusion. It is very likely that his rapid ventricular rate was related to significant discomfort and perhaps an element of decompensated heart failure. I think we can increase his outpatient metoprolol dose. He has reports of hypotension symptoms associated with higher doses, but I think a small increase may have the desired effect without causing undue symptoms. Hopefully we can wean him from his diltiazem over the next 24 hours. It is very likely that his splenic infarct is related to his atrial fibrillation and associated intracardiac thrombus. We discussed the need for indefinite systemic anticoagulation. History of Present Illness Reason for Consultation: Atrial fibrillation Requesting Physician: Sean Attending Physician: Fariba Estrada MD History of Present Illness Patient is a 59-year-old gentleman with a history of permanent atrial fibrillation and nonischemic cardiomyopathy who presented with 1 day's worth of chest and abdominal pain. Patient does speak limited Mongolian. Today's interview was facilitated by a dry press operator. It seems that approximately 24 hours prior to admission the patient began experience symptoms substernal chest discomfort and upper abdominal discomfort. Initially this was very mild in nature and associated with some nausea. This later progressed to fairly severe discomfort. Did not have any progressive GI symptoms. He did not have vomiting. He had some very mild dizziness and a sense of his heart racing. The symptoms did not involve radiation to the jaw, back or chest. Does report some right flank pain which has been intermittent over the past year. Upon presentation to the hospital the patient was noted to be in rapid atrial fibrillation. He also had elevated cardiac biomarkers. Imaging performed in the emergency room revealed evidence of a splenic infarct. Patient was subsequently anticoagulated and a diltiazem infusion was started. Currently he is feeling better. He continues to have mostly upper abdominal discomfort. He also has some mild right flank discomfort. His palpitations appear to have improved. He states he does have some dyspnea but this is at his baseline. He does not appear to have significant chest pain. Allergies Allergy/AdvReac Type Severity Reaction Status Date / Time No Known Allergies Allergy Mild Verified 01/25/19 23:04 Home Medications Home Medications Medication Instructions Recorded Confirmed Type lisinopril 10 mg tablet 10 mg PO BID #60 tab 10/19/18 01/25/19 Rx nitroglycerin 0.4 mg sublingual 0.4 mg SL Q5M PRN #30 tab 10/19/18 01/25/19 Rx tablet rosuvastatin [Crestor] 5 mg PO QAM #30 tab 10/31/18 01/25/19 Rx docusate sodium 100 mg PO DAILY PRN 12/22/18 01/25/19 History pantoprazole 40 mg PO DAILY 12/22/18 01/25/19 History prednisone 10 mg PO DIRECTED #31 tab 12/22/18 01/25/19 Rx sennosides [Senno] 8.6 mg PO DAILY PRN 12/22/18 01/25/19 History spironolactone 25 mg PO DAILY 12/22/18 01/25/19 History cyclobenzaprine 5 mg tablet 5 mg PO TID PRN 5 Days #14 tab 12/27/18 01/25/19 Rx tramadol 50 mg tablet 50 mg PO HS PRN #10 tab 12/29/18 01/25/19 Rx benzonatate 100 mg capsule 100 mg PO TID PRN #30 cap 01/25/19 01/25/19 Rx furosemide 40 mg PO DAILY 01/25/19 01/25/19 History metoprolol succinate 50 mg PO BID 01/25/19 01/25/19 History tamsulosin 0.4 mg PO DAILY 01/25/19 01/25/19 History Patient History Medical History Acid reflux disease (Acute) Atrial fibrillation with RVR (Acute) Cardiomyopathy (Acute) Chronic systolic (congestive) heart failure (Chronic) Compression fracture of L1 lumbar vertebra (Chronic) Dyslipidemia (Acute) HTN (hypertension) (Acute) Osteoporosis (Acute) Vitamin D deficiency (Acute) Surgical History Encounter for cardioversion procedure History of implantable cardiac defibrillator (ICD) Hx of tonsillectomy Family History Father Coronary heart disease Hypertension Mother Hypertension Brother Hypertension Social History Preferred Language: Kazakh Communication Ability: Effective Communication Tools: Other Submersible Pilot Required: Yes Beliefs That Will Affect Care: None marital status: Current Living Situation: Family current occupational status: disabled Feels Safe at Home: Yes Smoking Status: Never smoker Second Hand Exposure: No ; Hx Alcohol Use: No Hx Substance Use: No Seatbelt Use: always Review of Systems Review of Systems: All systems reviewed & are unremarkable except as noted in HPI & below No recent constitutional symptoms such as fevers or chills. Some mild lower extremity edema which waxes and wanes in severity. Physical Exam Physical Exam: The patient is alert and oriented. Mood and affect appeared normal. He answered all questions appropriately. HEENT: Pupils are equal and reactive to light and accommodation. Extraocular movements are intact. The sclerae are anicteric. Neuro: Cranial nerves intact Neck: Patient's neck is supple. He has palpable carotid pulses bilaterally without bruits on auscultation. There is no evidence of jugular venous distention. The thyroid is not enlarged. Lungs: Clear to auscultation bilaterally. He has good air movement without use of accessory muscles. Occasional crackle in the bases bilaterally. Abdomen: Not distended. Minimally tender under the left subcostal region. Cardiac: Heart demonstrates an irregular rate and rhythm. Normal S1 and S2. No murmurs on examination. Pulses: The patient has palpable radial pulses bilaterally that are equal in intensity Extremities: There was no evidence of hypoperfusion. There is no cyanosis or clubbing. There is trace edema. Skin: I did not appreciate any rashes on examination today. Results & Data Vital Signs (Past 12 Hours) Vital Signs Temp Pulse Pulse Resp BP BP Pulse Ox 01/26/19 12:45 102 H 01/26/19 11:13 36.7 C 86 18 100/55 L 93 01/26/19 07:59 36.8 C 93 H 18 130/85 95 01/26/19 03:30 36.6 C 87 18 146/76 H 95 01/26/19 03:01 100 H 18 126/81 96 01/26/19 02:45 99 H 31 H 104/80 95 01/26/19 02:16 107 H 20 105/77 88 L 01/26/19 02:01 110 H 22 132/85 93 01/26/19 02:00 107 H 21 132/85 90 01/26/19 01:30 105 H 105 H 27 H 123/80 123/80 96 01/26/19 01:15 113 H 20 145/88 H 94 Laboratory Results Abnormal Lab Results 01/25/19 01/25/19 01/25/19 22:07 22:07 22:07 WBC 10.22 RBC 4.90 Hgb 15.3 Hct 44.3 MCV 90.4 MCH 31.2 MCHC 34.5 RDW Std Deviation 52.2 H RDW Coeff of Rachana 15.8 H Plt Count 203 MPV 11.1 H Immature Gran % (Auto) 0.3 Neut % (Auto) 61.4 Lymph % (Auto) 23.5 Glynn % (Auto) 13.2 Eos % (Auto) 1.5 Baso % (Auto) 0.1 Immature Gran # (Auto) 0.03 H Neut # (Auto) 6.28 Lymph # (Auto) 2.40 Glynn # (Auto) 1.35 H Eos # (Auto) 0.15 Baso # (Auto) 0.01 PT 11.9 INR 1.2 H APTT 29.0 PTT Ratio 1.1 Sodium 140 Potassium 3.9 Chloride 110 H Carbon Dioxide 23 Anion Gap 7.0 BUN 17 Creatinine 0.89 Est Cr Clr Drug Dosing Not Reportable Est GFR ( Amer) 109.2 Est GFR (Non-Af Amer) 94.3 BUN/Creatinine Ratio 18.7 Glucose 110 H Calcium 9.3 Magnesium 1.9 Total Bilirubin 2.1 H AST 46 H ALT 52 Alkaline Phosphatase 133 H Troponin I 4.920 H* Total Protein 7.4 Albumin 3.9 Globulin 3.5 Albumin/Globulin Ratio 1.1 Lipase 65 L TSH 1.570 Urine Color Urine Appearance Urine pH Ur Specific Export Urine Protein Urine Glucose (UA) Urine Ketones Urine Blood Urine Nitrite Urine Bilirubin Urine Urobilinogen Ur Leukocyte Esterase Lyme Disease IgG Ab Lyme Disease IgM Ab 01/25/19 01/26/19 01/26/19 22:07 07:09 07:09 WBC 9.92 RBC 4.81 Hgb 14.5 Hct 43.2 MCV 89.8 MCH 30.1 MCHC 33.6 RDW Std Deviation 51.9 H RDW Coeff of Rachana 15.8 H Plt Count 184 MPV 11.3 H Immature Gran % (Auto) Neut % (Auto) Lymph % (Auto) Glynn % (Auto) Eos % (Auto) Baso % (Auto) Immature Gran # (Auto) Neut # (Auto) Lymph # (Auto) Glynn # (Auto) Eos # (Auto) Baso # (Auto) PT INR APTT PTT Ratio Sodium 139 Potassium 3.7 Chloride 109 H Carbon Dioxide 24 Anion Gap 6.0 BUN 12 Creatinine 0.83 Est Cr Clr Drug Dosing 102.8 Est GFR ( Amer) 112.4 Est GFR (Non-Af Amer) 97.0 BUN/Creatinine Ratio 14.9 Glucose 110 H Calcium 8.9 Magnesium Total Bilirubin AST ALT Alkaline Phosphatase Troponin I 4.400 H* Total Protein Albumin Globulin Albumin/Globulin Ratio Lipase TSH Urine Color Urine Appearance Urine pH Ur Specific Export Urine Protein Urine Glucose (UA) Urine Ketones Urine Blood Urine Nitrite Urine Bilirubin Urine Urobilinogen Ur Leukocyte Esterase Lyme Disease IgG Ab Negative Lyme Disease IgM Ab Negative 01/26/19 01/26/19 09:14 Unknown WBC RBC Hgb Hct MCV MCH MCHC RDW Std Deviation RDW Coeff of Rachana Plt Count MPV Immature Gran % (Auto) Neut % (Auto) Lymph % (Auto) Glynn % (Auto) Eos % (Auto) Baso % (Auto) Immature Gran # (Auto) Neut # (Auto) Lymph # (Auto) Glynn # (Auto) Eos # (Auto) Baso # (Auto) PT INR APTT 46.5 H* PTT Ratio 1.7 Sodium Potassium Chloride Carbon Dioxide Anion Gap BUN Creatinine Est Cr Clr Drug Dosing Est GFR ( Amer) Est GFR (Non-Af Amer) BUN/Creatinine Ratio Glucose Calcium Magnesium Total Bilirubin AST ALT Alkaline Phosphatase Troponin I Total Protein Albumin Globulin Albumin/Globulin Ratio Lipase TSH Urine Color Yellow Urine Appearance Clear Urine pH 5.0 Ur Specific Export > 1.045 H Urine Protein Negative Urine Glucose (UA) Negative Urine Ketones Negative Urine Blood Negative Urine Nitrite Negative Urine Bilirubin Negative Urine Urobilinogen Negative Ur Leukocyte Esterase Negative Lyme Disease IgG Ab Lyme Disease IgM Ab Diagnostic Findings Chest CTA did not reveal any acute pulmonary process. He did have evidence of pulmonary vascular congestion. He had cardiomegaly. He had the aforementioned splenic infarct. Echocardiogram performed on 10/30/2018 reveals severely reduced LV systolic function with an ejection fraction of 25-30 percent. Moderate to severe mitral regurgitation. Elevated pulmonary pressures. Cardiac catheterization performed 06/2018 revealed normal coronaries. ECG Additional Comments: EKG obtained the time of admission revealed atrial fibrillation and rapid ventricular response. Voltage criteria for left ventricular hypertrophy with repolarization abnormality PG Care Time/CCT Total # of Minutes Spent Total Time Spent with Patient: Total time spent is greater than 50% in coordination of care (as documented) at patient's floor/unit and/or counseling patient:
[2019-01-26] MEDS ORDERED: HYDROmorphone INJ 0.5 MG/0.5 ML SYR IV PRN (15:44)
--- NOTE | 2019-01-26 19:55 | History & Physical Bridge Note ---
Date of Service January 26, 2019 History & Physical Bridge Note I have examined the patient, reviewed the History & Physical and in the interval since the performance of the History & Physical I have noted the following changes of clinical significance: Pt with splenic infarct large in size from thromboembolism from Afib and severe LV dysfunction, likely LV thrombus. Discussed case with Cardiology and with General Surgery today and reviewed both of their formal consults Pt seen and examined and having pain in abdomen, worse with sitting up and moving. Afebrile. BPs low normal Pt reports no BM in 2 days Pain is controlled with Dilaudid now No chest pain or SOB NAD irreg irreg, 2/6 sys murmur at apex, normal rate CTAB no wcr Abd +BS soft +TTP epigastric region and LUQ without guarding or rebound Ext no edema Continue pain control, splenic precautions with activity, watch for fevers or signs f infection of spleen Watch for splenic rupture although is rare He may autosplenectomize and will need proper vaccinations as per Surgery -watch for ileus as per Surgery -continue heparin gtt troponin trending downward Appreciate Cardio and Surgery consults If has evidence of infection of spleen or splenic rupture, would need urgent/emergent Splenectomy
[2019-01-26] MEDS: HYDROmorphone INJ 0.5 MG/0.5 ML SYR IV PRN (20:03)
[2019-01-27] MEDS: HYDROmorphone INJ 0.5 MG/0.5 ML SYR IV PRN ×6 (00:57→21:25)
[2019-01-27 06:41] LABS: Hematocrit (blood only) 41.3 % (42-52); Hemoglobin 14.1 g/dL (14.0-18.0); Mean Corpuscular Hemoglobin 30.5 pg (25-34); Mean Corpuscular Hgb Conc 34.1 g/dL (32-36); Mean Corpuscular Volume 89.4 fL (80-100); Mean Platelet Volume 11.3 fL (7.4-10.4); Platelet Count 189 K/uL (130-400); RDW Coefficient of Variation 15.4 % (11.5-14.5); RDW Standard Deviation 49.8 fL (36.4-46.3); Red Blood Count 4.62 M/uL (4.7-6.1)
[2019-01-27 07:10] LABS: BUN Creatinine Ratio 12.5 (10-20); Calcium 8.9 mg/dl (8.5-10.1); Creatinine Clr Calc Pharmacy 92.8 ml/min; Est GFR (African American) 105.9; Est GFR (Non-African American) 91.4; Potassium 3.6 mmol/L (3.5-5.1)
[2019-01-27 07:16] LABS: Troponin I 2.94 ng/ml (0-0.045)
[2019-01-27 07:30] LABS: Partial Thromboplastin Ratio 2.3
[2019-01-27 07:32] LABS: Partial Thromboplastin Time 61.2 Seconds (21.0-31.0)
[2019-01-27] MEDS: PANTOprazole 40 MG TAB PO SCH (08:53)
[2019-01-27] MEDS: METOPROLOL SUCC 50MG EXT REL TAB PO SCH (08:53)
[2019-01-27] MEDS: SPIRONOLACTONE 25 MG TAB PO SCH (08:53)
[2019-01-27] MEDS: ROSUVASTATIN CALCIUM 5 MG TAB PO SCH (08:54)
[2019-01-27] MEDS: TAMSULOSIN HCL 0.4 MG CAP PO SCH (08:54)
[2019-01-27] MEDS: ASPIRIN 81 MG ECTAB PO SCH (08:54)
[2019-01-27] MEDS: FUROSEMIDE 40 MG TAB PO SCH (08:54)
[2019-01-27] MEDS: HEPARIN SODIUM/DEXTROSE 25,000 UNITS/500 ML BAG IV SCH (14:41)
[2019-01-27] MEDS ORDERED: METOPROLOL SUCC 25MG EXT REL TAB PO STA (18:35)
--- NOTE | 2019-01-27 19:00 | Hospitalist Progress Note ---
Date of Service January 27, 2019 Assessment & Plan (1) Splenic infarct: Presented with rapid atrial fibrillation, NSTEMI type II, and large splenic infarct secondary to thromboembolic event from atrial fibrillation and LV thrombus likely from low EF General surgery saw the patient recommended pain control, appropriate vaccinations for asplenia at some point, and observation for infection and/or rupture -May take weeks for pain to improve -Make dilaudid scheduled 0.5mg IV q3h as he is not asking for it and is frequently in distress with pain. Says pain med lasts 3 hours. -WBC count slightly up today but no fevers or other signs of infection, abd still soft, not surgical abdomen. -BPs and hemoglobin are stable, no evidence of splenic rupture -continue heparin gtt for anticoagulation and eventually will convert to oral anticoagulant -Follow CBC, watch for fevers or signs of infection -Appreciate Surgery consult -will need proper vaccinations for asplenia -if has evidence of splenic necrosis or infection, would need transfer for a splenectomy as per Surgery recommendations here; if has evidence of splenic rupture, would need emergent surgery here (2) Atrial fibrillation with RVR: Rates are still uncontrolled -Increase metoprolol to 75 mg twice daily -Continue heparin gtt -Now off Cardizem gtt -Previously refused anticoagulation but has been prescribed Eliquis in the past and hopefully will be agreeable to this upon discharge (3) NSTEMI (non-ST elevated myocardial infarction): Troponin peaked at 4 and came back down, type II demand ischemia secondary to rapid atrial fibrillation in the setting of severe systolic dysfunction -Appreciate cardiology consultation -Remains on heparin drip -Continue aspirin, metoprolol -Cardiac catheterization within the last year was performed at [place] and apparently had nonobstructive disease -I do not see a statin on his home medication list but rosuvastatin has been prescribed in the past-we will discuss with patient prior to discharge (4) Cardiomyopathy: EF noted to be 25%, nonischemic cardiomyopathy thought to be related to previous tachyarrhythmia -Cardiac catheterization earlier this year nonobstructive disease as per reports -Previously was wearing a life vest and now refuses ICD placement (5) Chronic systolic (congestive) heart failure: Continue Lasix and spironolactone. -Continue to hold lisinopril for low normal blood pressures well achieving rate control with increased dose of metoprolol Not volume overloaded -Continue Toprol-XL and increased dose 75 twice daily (6) Nonsustained ventricular tachycardia: Several small runs, asymptomatic -Increasing beta-tawny -Has refused ICD in the past (7) Acid reflux disease: continue pantoprazole (8) HTN (hypertension): Unclear if he has this diagnosis or is just on guideline directed therapy for CHF (9) Dyslipidemia: Crestor again is no longer listed on home med list but will see if he is willing to take (10) Elevated troponin: NSTEMI as above Has trended downward (11) DVT prophylaxis: Heparin drip Disposition-remain on PCU for uncontrolled rapid atrial fibrillation and splenic infarct-still working on achieving adequate pain control Subjective Still having significant pain in the left upper quadrant but trying not to take the pain medicine. Denies chest pain or shortness of breath, no nausea. He is passing flatus but no bowel movement in 3 days. He is tolerating clear liquids diet Telemetry with atrial fibrillation with rates in the 100s to 160s at times, 7 beat run of V. tach and another 10 beat run of V. tach Review of Systems Review of Systems: All systems reviewed & are unremarkable except as noted in HPI & below Physical Exam Constitutional: average body habitus; no acute distress Eyes: + anicteric sclerae Neck: trachea midline, no thyromegaly Respiratory: normal respiratory effort, lungs clear to auscultation Cardiovascular: Rate/Rhythm: + tachycardic and + irregularly irregular Heart Sounds: no murmur Extremities: no edema Chest (Breasts): Chest: normal inspection of chest Gastrointestinal (Abdomen): Inspection/Auscultation: abdomen normal to inspection and normal bowel sounds; abdomen not distended Percussion/Palpation: + abdomen tender (Left upper quadrant, no guarding or rebound tenderness) and abdomen soft; abdomen not rigid Musculoskeletal: Extremities: extremities normal to inspection; no cyanosis and no clubbing Skin: no rashes, warm and dry Neurologic: moves all extremities and awake; no focal motor deficits Psychiatric: Orientation: alert and cooperative Eye Contact: good eye contact Speech: normal rate/rhythm/volume of speech Affect: euthymic affect Results & Data Vital Signs (Past 12 Hours) Vital Signs Temp Pulse Resp BP BP Pulse Ox 01/27/19 15:46 36.7 C 101 H 22 126/84 92 01/27/19 12:13 36.9 C 74 16 121/63 98 01/27/19 07:12 37.0 C 105 H 19 118/87 96 Laboratory Results Labs reviewed, WBC 11, otherwise labs unremarkable except troponin trending down to 2.94 PG Care Time/CCT Total # of Minutes Spent Total Time Spent with Patient: Total time spent is greater than 50% in coordination of care (as documented) at patient's floor/unit and/or counseling patient:
[2019-01-27] MEDS: DOCUSATE SODIUM 100 MG CAP PO SCH (21:25)
[2019-01-28] MEDS: HYDROmorphone INJ 0.5 MG/0.5 ML SYR IV PRN ×3 (00:20→08:20)
[2019-01-28 06:14] LABS: Basophils # (auto) 0.02 K/uL (0-0.2); Basophils % (auto) 0.2 %; Eosinophils # (auto) 0.15 K/uL (0-0.5); Eosinophils % (auto) 1.3 %; Hemoglobin 14.6 g/dL (14.0-18.0); Immature Granulocytes # (auto) 0.02 K/uL (0.00-0.02); Immature Granulocytes % (auto) 0.2 %; Lymphocytes # (auto) 2.62 K/uL (1.2-3.4); Lymphocytes % (auto) 22.2 %; Mean Corpuscular Hemoglobin 30.8 pg (25-34); Mean Corpuscular Hgb Conc 34.8 g/dL (32-36); Mean Corpuscular Volume 88.6 fL (80-100); Mean Platelet Volume 10.7 fL (7.4-10.4); Monocytes # (auto) 1.75 K/uL (0.11-0.59); Monocytes % (auto) 14.8 %; Neutrophils # (auto) 7.26 K/uL (1.4-6.5); Neutrophils % (auto) 61.3 %; Platelet Count 204 K/uL (130-400); RDW Coefficient of Variation 14.9 % (11.5-14.5); RDW Standard Deviation 48.6 fL (36.4-46.3); Red Blood Count 4.74 M/uL (4.7-6.1); White Blood Count 11.82 K/uL (4.8-10.8)
[2019-01-28 06:41] LABS: BUN Creatinine Ratio 11.8 (10-20); Calcium 8.9 mg/dl (8.5-10.1); Creatinine Clr Calc Pharmacy 94.8 ml/min; Est GFR (African American) 108.7; Est GFR (Non-African American) 93.8; Potassium 3.2 mmol/L (3.5-5.1)
[2019-01-28 07:21] LABS: Partial Thromboplastin Ratio 2.3
[2019-01-28 07:25] LABS: Partial Thromboplastin Time 61.3 Seconds (21.0-31.0)
[2019-01-28] MEDS: TAMSULOSIN HCL 0.4 MG CAP PO SCH (08:07)
[2019-01-28] MEDS: SPIRONOLACTONE 25 MG TAB PO SCH (08:07)
[2019-01-28] MEDS: DOCUSATE SODIUM 100 MG CAP PO SCH ×2 (08:07→20:51)
[2019-01-28] MEDS: ASPIRIN 81 MG ECTAB PO SCH (08:08)
[2019-01-28] MEDS: FUROSEMIDE 40 MG TAB PO SCH (08:08)
[2019-01-28] MEDS: ROSUVASTATIN CALCIUM 5 MG TAB PO SCH (08:08)
[2019-01-28] MEDS ORDERED: METOPROLOL SUCC 25MG EXT REL TAB PO SCH (09:00)
[2019-01-28] MEDS: HEPARIN SODIUM/DEXTROSE 25,000 UNITS/500 ML BAG IV SCH (09:04)
[2019-01-28] MEDS: PANTOprazole 40 MG TAB PO SCH (09:04)
[2019-01-28] MEDS ORDERED: POTASSIUM CHLORIDE 20 MEQ TABCR PO STA (09:44)
--- NOTE | 2019-01-28 09:55 | Hospitalist Progress Note ---
Date of Service January 28, 2019 Assessment & Plan (1) Splenic infarct: Presented with rapid atrial fibrillation, NSTEMI type II, and large splenic infarct secondary to thromboembolic event from atrial fibrillation and LV thrombus likely from low EF Repeat echo here with no thrombus seen in LV currently General surgery saw the patient recommended pain control, appropriate vaccinations for asplenia at some point, and observation for infection and/or rupture -May take weeks for pain to improve Continues to have fairly severe pain Repeat CT abdomen/pelvis on 01/28 with large splenic infarct again demonstrated but no evidence of abscess or necrosis. There is some perisplenic stranding w [facility] radiology thinks is reactive to the infarct but not evidence of infection. 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 There is no evidence of splenic hematoma or rupture -We will increase Dilaudid to 1 mg IV every 4 hours as needed for pain -Once pain is better controlled, could convert to p.o. analgesics -With ileus, passing flatus now, add MiraLAX -WBC count slightly up but stable at 11 from yesterday but no fevers or other signs of infection, abd still soft, not surgical abdomen. -BPs and hemoglobin are stable -continue heparin gtt for anticoagulation and eventually will convert to oral anticoagulant -Follow CBC, watch for fevers or signs of infection -Appreciate Surgery consult -will need proper vaccinations for asplenia with PCP after discharge -if has evidence of splenic necrosis or infection, would need transfer for a splenectomy as per Surgery recommendations here; if has evidence of splenic rupture, would need emergent surgery here (2) Atrial fibrillation with RVR: Rates are still uncontrolled -Increased metoprolol succinate to 75 mg twice daily on 01/27 -We will give 1 dose of metoprolol tartrate 25 mg now and if blood pressure can tolerate, will increase Toprol-XL to 100 mg in the evening for tonight -Continue heparin gtt -Now off Cardizem gtt -Previously refused anticoagulation but has been prescribed Eliquis in the past and hopefully will be agreeable to this upon discharge (3) NSTEMI (non-ST elevated myocardial infarction): Troponin peaked at 4 and came back down, type II demand ischemia secondary to rapid atrial fibrillation in the setting of severe systolic dysfunction -Appreciate cardiology consultation -Remains on heparin drip more for anticoagulation for A. fib and splenic artery thrombus as above -Continue aspirin, metoprolol -Cardiac catheterization within the last year was performed at [place] and apparently had nonobstructive disease -I do not see a statin on his home medication list but rosuvastatin has been prescribed in the past-we will discuss with patient prior to discharge -Checked echocardiogram-no change from previous (4) Cardiomyopathy: EF noted to be 25%, nonischemic cardiomyopathy thought to be related to previous tachyarrhythmia -Cardiac catheterization earlier this year nonobstructive disease as per reports -Previously was wearing a life vest and now refuses ICD placement -With marked cardiomegaly seen on imaging, checked repeat echocardiogram here-no change from previous (5) Chronic systolic (congestive) heart failure: Continue Lasix and spironolactone. -Continue to hold lisinopril for low normal blood pressures while achieving rate control with increased dose of metoprolol Not volume overloaded -Continue Toprol-XL at increased dose of 75 twice daily and considering increasing dose as above for better rate control -Repeat echo here unchanged from previous with EF severely reduced and severely dilated LV, EF 25% (6) Nonsustained ventricular tachycardia: Several small runs daily, asymptomatic -Increased beta-tawny as above -Has refused ICD in the past (7) Acid reflux disease: continue pantoprazole (8) HTN (hypertension): Unclear if he has this diagnosis or is just on guideline directed therapy for CHF (9) Dyslipidemia: Crestor again is no longer listed on home med list but will see if he is willing to take (10) Elevated troponin: NSTEMI as above Has trended downward (11) Mitral regurgitation: Moderate least severe-severe, noted on echocardiogram -Secondary to dilated cardiomyopathy -Follow with cardiology (12) Hypokalemia: Potassium 3.2 today -Replace with 60 mill equivalents potassium chloride -Follow BMP in the morning (13) DVT prophylaxis: Heparin drip continues Disposition-remain on PCU for uncontrolled rapid atrial fibrillation and splenic infarct-still working on achieving adequate pain control and rate control Subjective Patient continues to have left upper quadrant pain that he says is relieved with the IV pain medicine, however nursing reports that he still seems like he is in quite a bit of distress in between doses of pain medicine. He denies chest pain but does feel little bit short of breath. He has not moved his bowels in 3 days but is passing flatus. Telemetry with atrial fibrillation with rates in the 100s to 120s persistently, at times to the 170s briefly with exertion. He has had several short runs of ventricular tachycardia of 6, 7, and 10 beats today. I discussed the case with the radiologist on the phone after his repeat CT scan today. Review of Systems Review of Systems: All systems reviewed & are unremarkable except as noted in HPI & below (No nausea or vomiting, no sweats or chills) Physical Exam Constitutional: average body habitus; no acute distress Eyes: + anicteric sclerae Neck: trachea midline, no thyromegaly Respiratory: normal respiratory effort, lungs clear to auscultation Cardiovascular: Rate/Rhythm: + tachycardic and + irregularly irregular Heart Sounds: + murmur (3/6 systolic heard best at apex) Extremities: no edema Chest (Breasts): Chest: normal inspection of chest Gastrointestinal (Abdomen): Inspection/Auscultation: abdomen normal to inspection and normal bowel sounds; abdomen not distended Percussion/Palpation: + abdomen tender (Left upper quadrant, no guarding or rebound tenderness) and abdomen soft; abdomen not rigid Musculoskeletal: Extremities: extremities normal to inspection; no cyanosis and no clubbing Skin: no rashes, warm and dry Neurologic: moves all extremities and awake; no focal motor deficits Psychiatric: Orientation: alert and cooperative Eye Contact: good eye contact Speech: normal rate/rhythm/volume of speech Affect: euthymic affect Results & Data Vital Signs (Past 12 Hours) Vital Signs Temp Pulse Resp BP Pulse Ox 01/28/19 08:00 36.7 C 107 H 19 133/73 96 01/28/19 05:16 36.9 C 104 H 20 154/64 H 92 01/27/19 23:09 36.9 C 100 H 20 127/70 94 Laboratory Results 01/28/19 01/28/19 01/28/19 Range/Units 06:49 05:59 05:59 WBC 11.82 H (4.8-10.8) K/uL RBC 4.74 (4.7-6.1) M/uL Hgb 14.6 (14.0-18.0) g/dL Hct 42.0 (42-52) % MCV 88.6 (80-100) fL MCH 30.8 (25-34) pg MCHC 34.8 (32-36) g/dL RDW Std Deviation 48.6 H (36.4-46.3) fL RDW Coeff of Rachana 14.9 H (11.5-14.5) % Plt Count 204 (130-400) K/uL MPV 10.7 H (7.4-10.4) fL Immature Gran % (Auto) 0.2 % Neut % (Auto) 61.3 % Lymph % (Auto) 22.2 % [place] % (Auto) 14.8 % Eos % (Auto) 1.3 % Baso % (Auto) 0.2 % Immature Gran # (Auto) 0.02 (0.00-0.02) K/uL Neut # (Auto) 7.26 H (1.4-6.5) K/uL Lymph # (Auto) 2.62 (1.2-3.4) K/uL [place] # (Auto) 1.75 H (0.11-0.59) K/uL Eos # (Auto) 0.15 (0-0.5) K/uL Baso # (Auto) 0.02 (0-0.2) K/uL APTT 61.3 H* (21.0-31.0) Seconds PTT Ratio 2.3 Sodium 136 (136-145) mmol/L Potassium 3.2 L (3.5-5.1) mmol/L Chloride 102 (98-107) mmol/L Carbon Dioxide 28 (21-32) mmol/L Anion Gap 6.0 (3-11) BUN 11 (7-18) mg/dl Creatinine 0.90 (0.6-1.4) mg/dl Est Cr Clr Drug Dosing 94.8 ml/min Est GFR ( Amer) 108.7 Est GFR (Non-Af Amer) 93.8 BUN/Creatinine Ratio 11.8 (10-20) Glucose 102 H (70-99) mg/dl Calcium 8.9 (8.5-10.1) mg/dl Diagnostic Findings IMPRESSION: 1. Large acute appearing splenic infarction redemonstrated which involves appro ximately two thirds of the splenic parenchyma, not significantly changed from the 01/26/2019 exam. Mild perisplenic stranding without large perisplenic hematoma identified. The previously described thrombosis of the distal splenic artery is better appreciated on comparison CTA. 2. Findings suggestive of mesenteric panniculitis. 3. Distended fluid-filled distal esophagus. 4. Mild prostamegaly with urinary bladder wall thickening suggestive of chronic bladder outlet obstruction. 5. Marked cardiomegaly 6. Additional findings as above. PG Care Time/CCT Total # of Minutes Spent Total Time Spent with Patient: Total time spent is greater than 50% in coordination of care (as documented) at patient's floor/unit and/or counseling patient:
[2019-01-28] MEDS: HYDROmorphone INJ 1 MG/ML SYRINGE IV PRN ×4 (10:31→22:53)
[2019-01-28] MEDS: POLYETHYLENE (MIRALAX) 17 GM PACK PO SCH (11:26)
[2019-01-28] MEDS ORDERED: IOVERSOL 100ml IV PRN (12:14)
--- NOTE | 2019-01-28 12:48 | CT Scan Report ---
ABDOMEN AND PELVIS CT WITH IV CONTRAST CT DOSE: 577.27 mGy.cm HISTORY: Follow up study in a patient with splenic infarct and severe abdominal pain. reassess splen ic infarct,severe abdominal pain TECHNIQUE: Multiaxial CT images of the abdomen and pelvis were performed following the IV administrat ion of 94 cc of Optiray 320, A dose lowering technique was utilized adhering to the principles of AL CANDACE. COMPARISON STUDY: CTA abdomen and pelvis 03/29/2018 FINDINGS: Dependent subsegmental bibasilar consolidative opacities suggest passive atelectasis. Trace left pleu ral effusion. Respiratory motion artifact limits evaluation of the lung bases. No pneumatosis or pneu moperitoneum identified. Marked multichamber cardiomegaly. Trace pericardial effusion. Large infarcti on of the spleen is redemonstrated involving approximately two thirds of the parenchyma. The distal s plenic artery thrombus is better appreciated on comparison CTA. Trace perisplenic stranding. No large perisplenic hematoma. Mild generalized pancreatic atrophy. The adrenal glands are unremarkable. Gall bladder distention without wall thickening or cholelithiasis. No biliary ductal dilation. Unremarkabl e liver. Mild nonspecific bilateral perinephric stranding. No renal or ureteral calculi or obstructiv e uropathy. Mild wall thickening of the bladder with partial distention. Mild prostamegaly. Small fat filled bilateral inguinal hernias. No aortic aneurysm or adenopathy. Unremarkable IVC. Fluid-filled distal esophagus is mildly distended. Mild stranding of the mid mesentery suggest mesent wanda panniculitis. No bowel obstruction. Appendix appears noninflamed. Multiple nondilated fluid-fill ed loops of small bowel, likely physiologic. Tiny fat filled periumbilical hernia. Soft tissues are u nremarkable. Degenerative changes of the spine, pelvis and hips. L1 and L4 compression deformities wi th unchanged retropulsion redemonstrated. IMPRESSION: 1. Large acute appearing splenic infarction redemonstrated which involves approximately two thirds of the splenic parenchyma, not significantly changed from the 01/26/2019 exam. Mild perisplenic strandin g without large perisplenic hematoma identified. The previously described thrombosis of the distal sp lenic artery is better appreciated on comparison CTA. 2. Findings suggestive of mesenteric panniculitis. 3. Distended fluid-filled distal esophagus. 4. Mild prostamegaly with urinary bladder wall thickening suggestive of chronic bladder outlet obstru ction. 5. Marked cardiomegaly 6. Additional findings as above. Electronically signed by: Sagar Lorenzo M.D. 01/28/2019 12:46 PM
[2019-01-28] MEDS ORDERED: METOPROLOL TARTRATE 25 MG TAB PO STA (15:45)
--- NOTE | 2019-01-28 18:37 | Cardiology Progress Note ---
Date of Service January 28, 2019 Subjective The patient was seen and examined today and notes some SOB ambulating to the [facility]. He denied any chest pain or palpitations. Review of Systems Review of Systems: All systems reviewed & are unremarkable except as noted in HPI & below Physical Exam Constitutional: WD/WN, vitals as above Eyes: PERRL, conjunctivae normal, anicteric sclerae Neck: trachea midline, no thyromegaly Respiratory: normal respiratory effort, lungs clear to auscultation Cardiovascular: Rate/Rhythm: + tachycardic and + irregularly irregular Heart Sounds: + murmur (3/6 holosystolic murmur at the apex) Gastrointestinal (Abdomen): Inspection/Auscultation: normal bowel sounds Neurologic: grossly non-focal Results & Data Vital Signs (Past 12 Hours) Vital Signs Temp Pulse Pulse Resp BP Pulse Ox 01/28/19 16:27 36.4 C L 90 36 H 107/67 92 01/28/19 11:49 36.6 C 67 21 116/67 91 01/28/19 09:00 100 H 01/28/19 08:00 36.7 C 107 H 19 133/73 96 Impression: 1. NSTEMI type 2 2. Atrial fibrillation with RVR 3. NICM 4.Non-sustained VT Plan: 1. Had cath earlier in the year per record showed non-obstructive CAD, continue with GDMT and titrate rate controlling meds for rapid afib. Continue to control pain. 2. Continue titrating metoprolol Succinate as needed, BP tolerating. Reassess in am. Continue Heparin gtt for now will need to be transitioned to OAC. 3. Continue with guideline directed medical therapy, again BP tolerating. Continue diuresis as needed to maintain euvolemia. Daily I/O's, weights. Low sodium diet 2-3g per day. 4. Currently on B-tawny. Pt has refused AICD in past.Will need to be readdressed prior to D/C
[2019-01-28] MEDS: METOPROLOL SUCC 25MG EXT REL TAB PO SCH (20:51)
[2019-01-29] MEDS: HEPARIN SODIUM/DEXTROSE 25,000 UNITS/500 ML BAG IV SCH ×2 (04:08→23:29)
[2019-01-29] MEDS: HYDROmorphone INJ 1 MG/ML SYRINGE IV PRN ×4 (04:08→16:18)
[2019-01-29 05:01] LABS: Partial Thromboplastin Ratio 1.9
[2019-01-29 05:35] LABS: Partial Thromboplastin Time 50.6 Seconds (21.0-31.0)
[2019-01-29] MEDS: DOCUSATE SODIUM 100 MG CAP PO SCH ×2 (08:21→21:05)
[2019-01-29] MEDS: TAMSULOSIN HCL 0.4 MG CAP PO SCH (08:21)
[2019-01-29] MEDS: ROSUVASTATIN CALCIUM 5 MG TAB PO SCH (08:21)
[2019-01-29] MEDS: ASPIRIN 81 MG ECTAB PO SCH (08:21)
[2019-01-29] MEDS: SPIRONOLACTONE 25 MG TAB PO SCH (08:21)
[2019-01-29] MEDS: METOPROLOL SUCC 50MG EXT REL TAB PO SCH (08:21)
[2019-01-29] MEDS: POLYETHYLENE (MIRALAX) 17 GM PACK PO SCH (08:22)
[2019-01-29] MEDS: FUROSEMIDE 40 MG TAB PO SCH (08:22)
[2019-01-29] MEDS: PANTOprazole 40 MG TAB PO SCH (08:22)
[2019-01-29 09:53] LABS: Basophils # (auto) 0.03 K/uL (0-0.2); Basophils % (auto) 0.3 %; Eosinophils # (auto) 0.34 K/uL (0-0.5); Eosinophils % (auto) 3.4 %; Hematocrit (blood only) 41.6 % (42-52); Hemoglobin 14.6 g/dL (14.0-18.0); Immature Granulocytes # (auto) 0.02 K/uL (0.00-0.02); Immature Granulocytes % (auto) 0.2 %; Lymphocytes # (auto) 2.04 K/uL (1.2-3.4); Lymphocytes % (auto) 20.2 %; Mean Corpuscular Hemoglobin 31.1 pg (25-34); Mean Corpuscular Hgb Conc 35.1 g/dL (32-36); Mean Corpuscular Volume 88.5 fL (80-100); Monocytes # (auto) 1.51 K/uL (0.11-0.59); Neutrophils # (auto) 6.16 K/uL (1.4-6.5); Neutrophils % (auto) 60.9 %; Platelet Count 223 K/uL (130-400); RDW Standard Deviation 48.5 fL (36.4-46.3)
[2019-01-29 10:19] LABS: Albumin Level 3.3 gm/dl (3.4-5.0); BUN Creatinine Ratio 11.9 (10-20); Calcium 9.2 mg/dl (8.5-10.1); Creatinine Clr Calc Pharmacy 85.2 ml/min; Est GFR (African American) 96.9; Est GFR (Non-African American) 83.6; Magnesium 1.9 mg/dl (1.8-2.4); Potassium 3.4 mmol/L (3.5-5.1)
[2019-01-29 10:21] LABS: Albumin Globulin Ratio 0.8 (0.9-2); Bilirubin,Total 1.3 mg/dl (0.2-1); Phosphorus 3.3 mg/dl (2.5-4.9); Total Protein 7.3 gm/dl (6.4-8.2); Uric Acid 6.4 mg/dl (2.6-7.2)
--- NOTE | 2019-01-29 10:47 | XCELERA ---
[id number] \\[id number]
--- NOTE | 2019-01-29 11:31 | Hospitalist Progress Note ---
Date of Service January 29, 2019 Assessment & Plan (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 This is presumed to be embolic in nature from his low EF or untreated afib (had been refusing anticoagulation in the office). Repeat CT abdomen/pelvis on 01/28 with large splenic infarct again demonstrated but no evidence of abscess or necrosis. - General surgery saw the patient recommended pain control, appropriate vaccinations for asplenia at some point, and observation for infection and/or rupture. - On heparin gtt - May take weeks for pain to improve - Will need proper vaccinations for asplenia with PCP after discharge (2) Atrial fibrillation with RVR: Rates are still uncontrolled; largely due to pain. When he is comfortable, rates are down to ~100 bpm. Previously refused anticoagulation but has been prescribed Eliquis in the past and hopefully will be agreeable to this upon discharge. - Presently on metoprolol succinate 100 mg QAM & 75 mg HS - Continue heparin gtt (3) NSTEMI (non-ST elevated myocardial infarction): Troponin peaked at 4 and came back down, type II demand ischemia secondary to rapid atrial fibrillation in the setting of severe systolic dysfunction. Cardiac catheterization within the last year was performed at [place] and apparently had non-obstructive disease. Checked echocardiogram - no change from previous. - Appreciate cardiology consultation - Remains on heparin drip more for anticoagulation for A. fib and splenic artery thrombus as above - Continue aspirin, metoprolol, statin (4) Cardiomyopathy: EF noted to be 25%, non-ischemic cardiomyopathy thought to be related to previous tachyarrhythmia. Cardiac catheterization earlier this year nonobstructive disease as per reports. - Previously was wearing a life vest and now refuses ICD placement - With marked cardiomegaly seen on imaging (5) Chronic systolic (congestive) heart failure: Repeat echo here unchanged from previous with EF severely reduced and severely dilated LV, EF 25%. - Continue Lasix and spironolactone. - Continue to hold lisinopril for low normal blood pressures while achieving rate control with increased dose of metoprolol - Appears euvolemic today. No leg swelling. Clear breath sounds. (6) Nonsustained ventricular tachycardia: Several small runs daily, asymptomatic. Has refused ICD in the past. - Increased beta-tawny as above (7) Acid reflux disease: - Continue pantoprazole (8) HTN (hypertension): Unclear if he has this diagnosis or is just on guideline directed therapy for CHF - BP stable/normal today at 115/75. (9) Dyslipidemia: Idalia was no longer listed on home med list, but he is willing to take it. - Continue statin (10) Mitral regurgitation: Moderate least severe-severe, noted on echocardiogram, secondary to dilated cardiomyopathy. - Follow with cardiology (11) DVT prophylaxis: Heparin drip Subjective He is in a lot of pain this morning. He says he had pain in the morning (2:30am) which he did not call the nursing staff about. Presently with continued pain. Some shortness of breath as well. Feels his legs are a bit swollen. Reports no fevers/chills, chest pain, nausea, or vomiting. Physical Exam Constitutional: WD/WN, vitals as above Eyes: EOM intact bilaterally; no conjunctival abnormality ENMT: external ear and nose normal, oropharynx normal Neck: trachea midline, no thyromegaly normal visual inspection Respiratory: normal respiratory effort, lungs clear to auscultation no respiratory distress Cardiovascular: Rate/Rhythm: + tachycardic and + irregularly irregular Heart Sounds: normal S1 and normal S2 Vessels: no JVD Extremities: no edema Gastrointestinal (Abdomen): Inspection/Auscultation: abdomen normal to inspection; abdomen not distended Musculoskeletal: no cyanosis or clubbing, extremities motor strength 5/5 Skin: no rashes, warm and dry Neurologic: moves all extremities and awake Psychiatric: Orientation: alert, oriented to person and cooperative Results & Data Vital Signs (Past 12 Hours) Vital Signs Temp Pulse Resp BP BP Pulse Ox 01/29/19 07:02 36.8 C 92 H 20 125/77 94 01/29/19 04:08 37.1 C 100 H 23 113/77 94 01/28/19 23:59 36.3 C L 96 H 20 123/79 92 PG Care Time/CCT Total # of Minutes Spent Total Time Spent with Patient: Total time spent is greater than 50% in coordination of care (as documented) at patient's floor/unit and/or counseling patient:
[2019-01-29] MEDS: POTASSIUM CHLORIDE PWD 20 MEQ PACK PO SCH ×2 (13:31→21:05)
[2019-01-29] MEDS ORDERED: MAGNESIUM CITRATE 296 ML/BTL PO STA (18:14)
[2019-01-29] MEDS: HYDROmorphone INJ 2 MG/ML SYR/VIAL IV PRN ×2 (19:14→23:25)
[2019-01-29] MEDS: METOPROLOL SUCC 25MG EXT REL TAB PO SCH (21:04)
[2019-01-30 06:24] LABS: Hematocrit (blood only) 39.5 % (42-52); Hemoglobin 13.5 g/dL (14.0-18.0); Mean Corpuscular Hemoglobin 30.2 pg (25-34); Mean Corpuscular Hgb Conc 34.2 g/dL (32-36); Mean Corpuscular Volume 88.4 fL (80-100); Platelet Count 220 K/uL (130-400); RDW Coefficient of Variation 14.8 % (11.5-14.5); RDW Standard Deviation 47.8 fL (36.4-46.3); Red Blood Count 4.47 M/uL (4.7-6.1); White Blood Count 8.68 K/uL (4.8-10.8)
[2019-01-30 06:49] LABS: Partial Thromboplastin Time 53.3 Seconds (21.0-31.0)
[2019-01-30 07:02] LABS: Creatinine Clr Calc Pharmacy 92.8 ml/min; Est GFR (African American) 107.3; Est GFR (Non-African American) 92.6; Magnesium 2.2 mg/dl (1.8-2.4); Potassium 4.6 mmol/L (3.5-5.1)
[2019-01-30] MEDS: HYDROmorphone INJ 2 MG/ML SYR/VIAL IV PRN ×5 (07:23→21:48)
[2019-01-30] MEDS: PANTOprazole 40 MG TAB PO SCH (10:00)
[2019-01-30] MEDS: DOCUSATE SODIUM 100 MG CAP PO SCH ×2 (10:00→20:30)
[2019-01-30] MEDS: ROSUVASTATIN CALCIUM 5 MG TAB PO SCH (10:02)
[2019-01-30] MEDS: FUROSEMIDE 40 MG TAB PO SCH (10:02)
[2019-01-30] MEDS: ASPIRIN 81 MG ECTAB PO SCH ×2 (10:02→11:58)
[2019-01-30] MEDS: TAMSULOSIN HCL 0.4 MG CAP PO SCH (10:02)
[2019-01-30] MEDS: SPIRONOLACTONE 25 MG TAB PO SCH (10:02)
[2019-01-30] MEDS: METOPROLOL SUCC 50MG EXT REL TAB PO SCH (10:03)
[2019-01-30] MEDS: POTASSIUM CHLORIDE PWD 20 MEQ PACK PO SCH (10:03)
[2019-01-30] MEDS: lisinopriL 5 MG TAB PO SCH (10:03)
[2019-01-30] MEDS: POLYETHYLENE (MIRALAX) 17 GM PACK PO SCH (10:04)
--- NOTE | 2019-01-30 13:54 | Surgery Progress Note ---
Date of Service I got a call for pt who is still have LUQ pain,F/U splenic infarction. I saw pt with nurse at bedside, pt is comfortable on bed, pt speech some sami, pt said he is still have some LUQ pain, pt tolerated full liquid diet, no nausea, no fever. no fever. 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 Explained that typically, conservative measures are applied first and surgical therapy reserved for complications such as rupture, infection/ abscess. At this point, I would continue heparin drip, limit strenuous activities for 6 weeks minimum (will need note for physical therapy as he was undergoing this for his back), slow advancement of diet (gastric ileus can occur). Most splenic infarctions do not require splenectomy but as this is a risk, I would recommend he receive his vaccinations for H.flu, meningococcus and pneumococcus whenever medically feasible. OK to ambulate when stable. Will advance diet to clear liquids and OK to advance as tolerated. Explained the pain from infarction may take a few weeks to resolve. Will sign off - please call if questions. 01/30/2019 1:57PM F/U splenic infarction, pt is stable, no signs for splenic rupture, normal WBC I agree with continue conservative treatment, again, the LUQ pain may last 2-3 weeks, pt understood, will F/U prn, (2) Atrial fibrillation with RVR: Elevated troponin c/w AL. Plan as per medicine. Subjective I discussed the case with the radiologist on the phone after his repeat CT scan today. Physical Exam Constitutional: WD/WN, vitals as above well developed and well nourished Neck: trachea midline, no thyromegaly Respiratory: normal respiratory effort, lungs clear to auscultation normal respiratory effort Cardiovascular: RRR, no murmur, no edema Gastrointestinal (Abdomen): Percussion/Palpation: + abdomen tender and abdomen soft some tenderness at LUQ, no rebound pain, BS +, no distend Musculoskeletal: no cyanosis or clubbing, extremities motor strength 5/5 Skin: no rashes, warm and dry Neurologic: awake Psychiatric: Orientation: alert, oriented to place and oriented to time Results & Data Vital Signs (Past 12 Hours) Vital Signs Temp Pulse Resp BP Pulse Ox 01/30/19 11:29 36.7 C 73 18 126/97 92 01/30/19 08:11 37.1 C 121 H 18 123/82 91 01/30/19 04:01 36.5 C 86 19 111/77 93 Laboratory Results Abnormal lab results 01/30/19 01/30/19 Range/Units 06:13 06:13 RBC 4.47 L (4.7-6.1) M/uL Hgb 13.5 L (14.0-18.0) g/dL Hct 39.5 L (42-52) % RDW Std Deviation 47.8 H (36.4-46.3) fL RDW Coeff of Rachana 14.8 H (11.5-14.5) % MPV 11.0 H (7.4-10.4) fL APTT 53.3 H* (21.0-31.0) Seconds Diagnostic Findings ABDOMEN AND PELVIS CT WITH IV CONTRAST CT DOSE: 577.27 mGy.cm HISTORY: Follow up study in a patient with splenic infarct and severe abdominal pain. reassess splenic infarct,severe abdominal pain TECHNIQUE: Multiaxial CT images of the abdomen and pelvis were performed following the IV administration of 94 cc of Optiray 320, A dose lowering technique was utilized adhering to the principles of ALARA. COMPARISON STUDY: CTA abdomen and pelvis 03/29/2018 FINDINGS: Dependent subsegmental bibasilar consolidative opacities suggest passive atelectasis. Trace left pleural effusion. Respiratory motion artifact limits evaluation of the lung bases. No pneumatosis or pneumoperitoneum identified. Marked multichamber cardiomegaly. Trace pericardial effusion. Large infarction of the spleen is redemonstrated involving approximately two thirds of the parenchyma. The distal splenic artery thrombus is better appreciated on comparison CTA. Trace perisplenic stranding. No large perisplenic hematoma. Mild generalized pancreatic atrophy. The adrenal glands are unremarkable. Gallbladder distention without wall thickening or cholelithiasis. No biliary ductal dilation. Unremarkable liver. Mild nonspecific bilateral perinephric stranding. No renal or ureteral calculi or obstructive uropathy. Mild wall thickening of the bladder with partial distention. Mild prostamegaly. Small fat filled bilateral inguinal hernias. No aortic aneurysm or adenopathy. Unremarkable IVC. Fluid-filled distal esophagus is mildly distended. Mild stranding of the mid mesentery suggest mesenteric panniculitis. No bowel obstruction. Appendix appears noninflamed. Multiple nondilated fluid-filled loops of small bowel, likely physiologic. Tiny fat filled periumbilical hernia. Soft tissues are unremarkable. Degenerative changes of the spine, pelvis and hips. L1 and L4 compression deformities with unchanged retropulsion redemonstrated. IMPRESSION: 1. Large acute appearing splenic infarction redemonstrated which involves approximately two thirds of the splenic parenchyma, not significantly changed from the 01/26/2019 exam. Mild perisplenic stranding without large perisplenic hematoma identified. The previously described thrombosis of the distal splenic artery is better appreciated on comparison CTA. 2. Findings suggestive of mesenteric panniculitis. 3. Distended fluid-filled distal esophagus. 4. Mild prostamegaly with urinary bladder wall thickening suggestive of chronic bladder outlet obstruction. 5. Marked cardiomegaly 6. Additional findings as above. CT angio chest dissec wo/w con HISTORY: 59 years-old Male Chest/belly pain. Elevated trop acute chest and abdominal pain COMPARISON: CT abdomen and pelvis of same day, lumbar spine radiographs 12/22/2018, MR lumbar spine 12/22/2018 TECHNIQUE: CTA of the chest was obtained both with and without the use of 118 mL Optiray 320 IV contrast. 3-D coronal and sagittal MIPS were obtained from the axial data set and were submitted for review. 3-D coronal and sagittal MIPS were obtained from the axial data set and were submitted for review. All measurements were obtained according to NASCET criteria. A dose lowering technique was used consistent with the principals of ALARA. FINDINGS: CTA: Marked cardiomegaly. No pericardial effusion. No thoracic aortic aneurysm or dissection. Patency of the imaged great vessels. Mild tortuosity of the descending thoracic aorta. No intramural hematoma identified on the noncontrast scan. The pulmonary artery is suboptimally opacified. No central filling defects identified to suggest pulmonary thromboembolic disease. CT CHEST: Unremarkable thyroid. Prominent prevascular, and AP window lymph nodes measure up to 9 mm, likely reactive. Trace pleural effusions. No pneumothorax. Bilateral intralobular septal thickening is noted along with bronchial wall thickening and mild subsegmental bibasilar groundglass opacities suggestive of atelectasis. No focal airspace consolidation typical for pneumonia. Central airways appear patent. Soft tissues are unremarkable. There is a large infarct of the mid spleen, 5.6 x 6.6 cm with distal splenic artery occlusion. Please refer to CT abdomen and pelvis exam of same day for further discussion of the abdomen and pelvis findings. L1 and L4 compression deformities. IMPRESSION: 1. Unremarkable CTA of the chest without evidence of thoracic aortic aneurysm or dissection. 2. Marked cardiomegaly with interstitial pulmonary edema and trace pleural effusions. 3. Large acute appearing splenic infarct with distal splenic artery occlusion.
--- NOTE | 2019-01-30 14:09 | Hospitalist Progress Note ---
Date of Service January 30, 2019 Assessment & Plan (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 This is presumed to be embolic in nature from his low EF or untreated afib (had been refusing anticoagulation in the office). Repeat CT abdomen/pelvis on 01/28 with large splenic infarct again demonstrated but no evidence of abscess or necrosis. - General surgery saw the patient recommended pain control, appropriate vaccinations for asplenia at some point, and observation for infection and/or rupture. - Discussed with surgery on 01/30 who re-evaluated the patient. - On heparin gtt - May take weeks for pain to improve - Will need proper vaccinations for asplenia with PCP after discharge (2) Atrial fibrillation with RVR: Previously refused anticoagulation but has been prescribed Eliquis in the past and hopefully will be agreeable to this upon discharge. - Presently on metoprolol succinate 100 mg QAM & 75 mg HS - Continue heparin gtt - Rates are better controlled today. (3) NSTEMI (non-ST elevated myocardial infarction): Troponin peaked at 4 and came back down, type II demand ischemia secondary to rapid atrial fibrillation in the setting of severe systolic dysfunction. Cardiac catheterization within the last year was performed at [place] and apparently had non-obstructive disease. Checked echocardiogram - no change from previous. - Appreciate cardiology consultation - Remains on heparin drip more for anticoagulation for A. fib and splenic artery thrombus as above - Continue aspirin, metoprolol, statin (4) Cardiomyopathy: EF noted to be 25%, non-ischemic cardiomyopathy thought to be related to previous tachyarrhythmia. Cardiac catheterization earlier this year non- obstructive disease as per reports. - Previously was wearing a life vest and now refuses ICD placement - With marked cardiomegaly seen on imaging (5) Chronic systolic (congestive) heart failure: Repeat echo here unchanged from previous with EF severely reduced and severely dilated LV, EF 25%. - Continue Lasix and spironolactone. - Continue to hold lisinopril for low normal blood pressures while achieving rate control with increased dose of metoprolol - Appears euvolemic today. No leg swelling. Clear breath sounds. (6) Nonsustained ventricular tachycardia: Several small runs daily, asymptomatic. Has refused ICD in the past. - Increased beta-tawny as above (7) Acid reflux disease: - Continue pantoprazole (8) HTN (hypertension): Unclear if he has this diagnosis or is just on guideline directed therapy for CHF - BP stable/normal today at 115/75. (9) Dyslipidemia: Crestor was no longer listed on home med list, but he is willing to take it. - Continue statin (10) Mitral regurgitation: Moderate least severe-severe, noted on echocardiogram, secondary to dilated cardiomyopathy. - Follow with cardiology (11) DVT prophylaxis: Heparin drip Subjective Still with LUQ pain. Liquid diet is better tolerated. No fevers. No nausea or vomiting. Physical Exam Constitutional: WD/WN, vitals as above Eyes: EOM intact bilaterally; no conjunctival abnormality ENMT: external ear and nose normal, oropharynx normal Neck: trachea midline, no thyromegaly normal visual inspection Respiratory: normal respiratory effort, lungs clear to auscultation no respiratory distress Cardiovascular: Rate/Rhythm: regular rate and + irregularly irregular Heart Sounds: normal S1 and normal S2 Vessels: no JVD Extremities: no edema Gastrointestinal (Abdomen): Inspection/Auscultation: abdomen normal to inspection; abdomen not distended Musculoskeletal: no cyanosis or clubbing, extremities motor strength 5/5 Skin: no rashes, warm and dry Neurologic: moves all extremities and awake Psychiatric: Orientation: alert, oriented to person and cooperative Results & Data Vital Signs (Past 12 Hours) Vital Signs Temp Pulse Resp BP Pulse Ox 01/30/19 11:29 36.7 C 73 18 126/97 92 01/30/19 08:11 37.1 C 121 H 18 123/82 91 01/30/19 04:01 36.5 C 86 19 111/77 93 PG Care Time/CCT Total # of Minutes Spent Total Time Spent with Patient: Total time spent is greater than 50% in coordination of care (as documented) at patient's floor/unit and/or counseling patient:
[2019-01-30] MEDS: HEPARIN SODIUM/DEXTROSE 25,000 UNITS/500 ML BAG IV SCH (18:21)
[2019-01-30] MEDS: METOPROLOL SUCC 25MG EXT REL TAB PO SCH (20:31)
[2019-01-30] MEDS: GABAPENTIN 600 MG TAB PO SCH (20:31)
[2019-01-31] MEDS: HYDROmorphone INJ 2 MG/ML SYR/VIAL IV PRN (04:16)
[2019-01-31 06:07] LABS: Hematocrit (blood only) 39.5 % (42-52); Hemoglobin 13.4 g/dL (14.0-18.0); Mean Corpuscular Hemoglobin 30.1 pg (25-34); Mean Corpuscular Hgb Conc 33.9 g/dL (32-36); Mean Corpuscular Volume 88.8 fL (80-100); Platelet Count 241 K/uL (130-400); RDW Coefficient of Variation 14.8 % (11.5-14.5); RDW Standard Deviation 48.4 fL (36.4-46.3); Red Blood Count 4.45 M/uL (4.7-6.1); White Blood Count 7.59 K/uL (4.8-10.8)
[2019-01-31 06:30] LABS: Partial Thromboplastin Ratio 1.9
[2019-01-31 06:33] LABS: Partial Thromboplastin Time 51.3 Seconds (21.0-31.0)
[2019-01-31 06:37] LABS: BUN Creatinine Ratio 11.9 (10-20); Calcium 8.5 mg/dl (8.5-10.1); Creatinine Clr Calc Pharmacy 90.7 ml/min; Est GFR (African American) 104.5; Est GFR (Non-African American) 90.2; Potassium 4.3 mmol/L (3.5-5.1)
[2019-01-31] MEDS: METOPROLOL SUCC 50MG EXT REL TAB PO SCH ×2 (08:23→21:31)
[2019-01-31] MEDS: PANTOprazole 40 MG TAB PO SCH (08:23)
[2019-01-31] MEDS: lisinopriL 5 MG TAB PO SCH (08:24)
[2019-01-31] MEDS: VENLAFAXINE HCL XR 37.5 MG CAPXR PO SCH (08:24)
[2019-01-31] MEDS: FUROSEMIDE 40 MG TAB PO SCH (08:24)
[2019-01-31] MEDS: DOCUSATE SODIUM 100 MG CAP PO SCH ×2 (08:24→21:30)
[2019-01-31] MEDS: ROSUVASTATIN CALCIUM 5 MG TAB PO SCH (08:24)
[2019-01-31] MEDS: TAMSULOSIN HCL 0.4 MG CAP PO SCH (08:24)
[2019-01-31] MEDS: GABAPENTIN 600 MG TAB PO SCH ×2 (08:24→21:31)
[2019-01-31] MEDS: ASPIRIN 81 MG ECTAB PO SCH (08:25)
[2019-01-31] MEDS: POLYETHYLENE (MIRALAX) 17 GM PACK PO SCH (08:25)
[2019-01-31] MEDS: SPIRONOLACTONE 25 MG TAB PO SCH (08:25)
--- NOTE | 2019-01-31 13:02 | Cardiology Progress Note ---
Date of Service January 31, 2019 Assessment & Plan (1) NSTEMI (non-ST elevated myocardial infarction): Likely demand related. No recurrent symptoms of chest discomfort. Will continue on his current outpatient regimen in this regard. (2) Cardiomyopathy: Difficult to assess his volume status. He has some difficulty taking deep breaths due to splinting. Accurate I&Os have not been obtained. He is not appear to be markedly volume overloaded and is quite comfortable at rest. Will continue on his outpatient dose of diuretic. (3) Atrial fibrillation with RVR: His heart rates at rest seem adequate. Certainly with activity or pain they are increased. He seems to be tolerating higher dose of metoprolol and I increases succinate 100 mg twice daily currently. He will continue on systemic anticoagulation at this point. (4) Nonsustained ventricular tachycardia: He meets criteria for an ICD based exclusively on his degree of LV dysfunction. We have had this discussion in the past and he has refused. Will continue him on beta-blockade currently. Subjective This morning the patient states that his abdominal discomfort is slightly better. He continues to have some pain in the left upper quadrant. His symptoms are worse with deep inspiration and movement. He has been ambulatory around his room and reports some mild dizziness when changing position. He did not report chest pain. He did not report limiting dyspnea. Review of Systems Review of Systems: Per HPI Physical Exam Physical Exam: The patient is alert and oriented. Mood and affect appeared normal. He answered all questions appropriately. HEENT: Pupils are equal and reactive to light and accommodation. Extraocular movements are intact. The sclerae are anicteric. Neuro: Cranial nerves intact Neck: Patient's neck is supple. He has palpable carotid pulses bilaterally without bruits on auscultation. There is no evidence of jugular venous di stention. The thyroid is not enlarged. Lungs: Clear to auscultation bilaterally. He has good air movement without use of accessory muscles. No rales wheezes or rhonchi. Cardiac: Heart demonstrates an irregular rate and rhythm. Normal S1 and S2. No murmurs on examination. Pulses: The patient has palpable radial pulses bilaterally that are equal in intensity Extremities: There was no evidence of hypoperfusion. There is no cyanosis or clubbing. There is no edema. Skin: I did not appreciate any rashes on examination today. Results & Data Vital Signs (Past 12 Hours) Vital Signs Temp Pulse Resp BP BP Pulse Ox 12/11/19 11:15 36.7 C 86 17 96/59 L 91 01/31/19 08:01 36.7 C 20 114/63 90 01/31/19 03:10 36.8 C 90 18 106/69 92 Laboratory Results Abnormal Lab Results 01/31/19 01/31/19 01/31/19 05:54 05:54 05:54 WBC 7.59 RBC 4.45 L Hgb 13.4 L Hct 39.5 L MCV 88.8 MCH 30.1 MCHC 33.9 RDW Std Deviation 48.4 H RDW Coeff of Rachana 14.8 H Plt Count 241 MPV 11.0 H APTT 51.3 H* PTT Ratio 1.9 Sodium 135 L Potassium 4.3 Chloride 102 Carbon Dioxide 29 Anion Gap 4.0 BUN 11 Creatinine 0.93 Est Cr Clr Drug Dosing 90.7 Est GFR ( Amer) 104.5 Est GFR (Non-Af Amer) 90.2 BUN/Creatinine Ratio 11.9 Glucose 96 Calcium 8.5 Magnesium 2.0 PG Care Time/CCT Total # of Minutes Spent Total Time Spent with Patient: Total time spent is greater than 50% in coordination of care (as documented) at patient's floor/unit and/or counseling patient:
--- NOTE | 2019-01-31 13:41 | Hospitalist Progress Note ---
Date of Service January 31, 2019 Assessment & Plan (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 This is presumed to be embolic in nature from his low EF or untreated afib (had been refusing anticoagulation in the office). Repeat CT abdomen/pelvis on 01/28 with large splenic infarct again demonstrated but no evidence of abscess or necrosis. - General surgery saw the patient recommended pain control, appropriate vaccinations for asplenia at some point, and observation for infection and/or rupture. - Discussed with surgery on 01/30 who re-evaluated the patient. Still no indication for surgery. - On heparin gtt - May take weeks for pain to resolve, though it is improving today. - Will need proper vaccinations for asplenia with PCP after discharge (2) Atrial fibrillation with RVR: Previously refused anticoagulation but has been prescribed Eliquis in the past and hopefully will be agreeable to this upon discharge. - Presently on metoprolol succinate 100 mg BID - Continue heparin gtt - Rates are better controlled today. HR ~ 80s. (3) NSTEMI (non-ST elevated myocardial infarction): Troponin peaked at 4 and came back down, type II demand ischemia secondary to rapid atrial fibrillation in the setting of severe systolic dysfunction. Cardiac catheterization within the last year was performed at [place] and apparently had non-obstructive disease. Checked echocardiogram - no change from previous. - Appreciate cardiology consultation - Remains on heparin drip more for anticoagulation for A. fib and splenic artery thrombus as above - Continue aspirin, metoprolol, statin (4) Cardiomyopathy: EF noted to be 25%, non-ischemic cardiomyopathy thought to be related to previous tachyarrhythmia. Cardiac catheterization earlier this year non- obstructive disease as per reports. - Previously was wearing a life vest and now refuses ICD placement - With marked cardiomegaly seen on imaging - Continue medical management with beta-tawny, ACEi, and spironolactone. (5) Chronic systolic (congestive) heart failure: Repeat echo here unchanged from previous with EF severely reduced and severely dilated LV, EF 25%. - Continue Lasix and spironolactone. - Continue lower-dose lisinopril for low normal blood pressures while achieving rate control with increased dose of metoprolol - Appears euvolemic today. No leg swelling. Clear breath sounds. No shortness of breath subjectively now that pain is under control. (6) Nonsustained ventricular tachycardia: Several small runs daily, asymptomatic. Longer, 35-beat run on 01/31. Still asymptomatic. Has refused ICD in the past. - Increased beta-tawny as above (7) Acid reflux disease: - Continue pantoprazole (8) HTN (hypertension): Unclear if he has this diagnosis or is just on guideline directed therapy for CHF - BP stable/normal today at 100/60. (9) Dyslipidemia: Crestor was no longer listed on home med list, but he is willing to take it. - Continue statin (10) Mitral regurgitation: Moderate least severe-severe, noted on echocardiogram, secondary to dilated cardiomyopathy. - Follow with cardiology (11) DVT prophylaxis: Heparin drip Subjective Happily, he is feeling better today. He has less pain, and is actually thinking about when he can go home. He is in better spirits too. Reports no fevers/chills, chest pain, shortness of breath, nausea, or vomiting. Physical Exam Constitutional: WD/WN, vitals as above Eyes: EOM intact bilaterally; no conjunctival abnormality ENMT: external ear and nose normal, oropharynx normal Neck: trachea midline, no thyromegaly normal visual inspection Respiratory: normal respiratory effort, lungs clear to auscultation no respiratory distress Cardiovascular: Rate/Rhythm: regular rate and + irregularly irregular Heart Sounds: normal S1 and normal S2 Vessels: no JVD Extremities: no edema Gastrointestinal (Abdomen): Inspection/Auscultation: abdomen normal to inspection; abdomen not distended Musculoskeletal: no cyanosis or clubbing, extremities motor strength 5/5 Skin: no rashes, warm and dry Neurologic: moves all extremities and awake Psychiatric: Orientation: alert, oriented to person and cooperative Results & Data Vital Signs (Past 12 Hours) Vital Signs Temp Pulse Resp BP BP Pulse Ox 01/31/19 11:15 36.7 C 86 17 96/59 L 91 01/31/19 08:01 36.7 C 20 114/63 90 01/31/19 03:10 36.8 C 90 18 106/69 92 PG Care Time/CCT Total # of Minutes Spent Total Time Spent with Patient: Total time spent is greater than 50% in coordination of care (as documented) at patient's floor/unit and/or counseling patient:
[2019-01-31] MEDS: OXYCODONE/ACETAMINOPHEN 10-325 TAB PO PRN ×2 (14:15→18:50)
[2019-01-31] MEDS: HEPARIN SODIUM/DEXTROSE 25,000 UNITS/500 ML BAG IV SCH (14:16)
[2019-01-31] MEDS: RIVAROXABAN 15 MG TAB PO SCH (18:50)
[2019-01-31] MEDS: HYDROmorphone INJ 1 MG/ML SYRINGE IV PRN (21:35)
[2019-02-01] MEDS: OXYCODONE/ACETAMINOPHEN 10-325 TAB PO PRN ×3 (00:11→12:52)
[2019-02-01] MEDS: HYDROmorphone INJ 1 MG/ML SYRINGE IV PRN (05:08)
[2019-02-01] MEDS: RIVAROXABAN 15 MG TAB PO SCH ×2 (05:10→18:40)
[2019-02-01 07:43] LABS: Hematocrit (blood only) 40.6 % (42-52); Hemoglobin 13.7 g/dL (14.0-18.0); Mean Corpuscular Hgb Conc 33.7 g/dL (32-36); Mean Corpuscular Volume 88.8 fL (80-100); Mean Platelet Volume 11.1 fL (7.4-10.4); Platelet Count 285 K/uL (130-400); RDW Coefficient of Variation 14.8 % (11.5-14.5); RDW Standard Deviation 48.2 fL (36.4-46.3); Red Blood Count 4.57 M/uL (4.7-6.1); White Blood Count 5.73 K/uL (4.8-10.8)
[2019-02-01] MEDS: GABAPENTIN 600 MG TAB PO SCH ×3 (08:28→21:43)
[2019-02-01] MEDS: METOPROLOL SUCC 50MG EXT REL TAB PO SCH ×2 (08:28→21:44)
[2019-02-01] MEDS: PANTOprazole 40 MG TAB PO SCH (08:28)
[2019-02-01] MEDS: DOCUSATE SODIUM 100 MG CAP PO SCH ×2 (08:28→21:43)
[2019-02-01] MEDS: lisinopriL 5 MG TAB PO SCH (08:29)
[2019-02-01] MEDS: POLYETHYLENE (MIRALAX) 17 GM PACK PO SCH (08:29)
[2019-02-01] MEDS: FUROSEMIDE 40 MG TAB PO SCH (08:29)
[2019-02-01] MEDS: TAMSULOSIN HCL 0.4 MG CAP PO SCH (08:29)
[2019-02-01] MEDS: SPIRONOLACTONE 25 MG TAB PO SCH (08:29)
[2019-02-01] MEDS: VENLAFAXINE HCL XR 37.5 MG CAPXR PO SCH (08:29)
[2019-02-01] MEDS: ROSUVASTATIN CALCIUM 5 MG TAB PO SCH (08:29)
[2019-02-01] MEDS: OXYCODONE HCL 10 MG TABCR (OXYCONTIN) PO SCH ×2 (12:52→21:42)
--- NOTE | 2019-02-01 15:04 | Hospitalist Progress Note ---
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 This is presumed to be embolic in nature from his low EF or untreated afib (had been refusing anticoagulation in the office). Repeat CT abdomen/pelvis on 01/28 with large splenic infarct again demonstrated but no evidence of abscess or necrosis. - General surgery saw the patient recommended pain control, appropriate vaccinations for asplenia at some point, and observation for infection and/or rupture. - Discussed with surgery on 01/30 who re-evaluated the patient. Still no indication for surgery. - On heparin gtt - May take weeks for pain to resolve, though it is improving overall. Increased his gabapentin and started a low-dose OxyContin. - Will need proper vaccinations for asplenia with PCP after discharge (2) Atrial fibrillation with RVR: Previously refused anticoagulation but has been prescribed Eliquis in the past and hopefully will be agreeable to this upon discharge. - Presently on metoprolol succinate 100 mg BID - Rates are better controlled today. HR ~ 80s. = Started Xarelto today. (3) NSTEMI (non-ST elevated myocardial infarction): Troponin peaked at 4 and came back down, type II demand ischemia secondary to rapid atrial fibrillation in the setting of severe systolic dysfunction. Cardiac catheterization within the last year was performed at [place] and apparently had non-obstructive disease. Checked echocardiogram - no change from previous. - Appreciate cardiology consultation - On Xarelto for A. fib and splenic artery thrombus as above - Continue aspirin, metoprolol, statin (4) Cardiomyopathy: EF noted to be 25%, non-ischemic cardiomyopathy thought to be related to previous tachyarrhythmia. Cardiac catheterization earlier this year non- obstructive disease as per reports. - Previously was wearing a life vest and now refuses ICD placement - With marked cardiomegaly seen on imaging - Continue medical management with beta-tawny, ACEi, and spironolactone. (5) Chronic systolic (congestive) heart failure: Repeat echo here unchanged from previous with EF severely reduced and severely dilated LV, EF 25%. - Continue Lasix and spironolactone. - Continue lower-dose lisinopril for low normal blood pressures while achieving rate control with increased dose of metoprolol - Appears euvolemic today. No leg swelling. Clear breath sounds. Less shortness of breath subjectively now that pain is under control. (6) Nonsustained ventricular tachycardia: Several small runs daily, asymptomatic. Longer, 35-beat run on 01/31. Still asymptomatic. Has refused ICD in the past. Discussed with Dr. Mccullough on 01/31. - Increased beta-tawny as above (7) Acid reflux disease: - Continue pantoprazole (8) HTN (hypertension): Unclear if he has this diagnosis or is just on guideline directed therapy for CHF - BP stable/normal today at 100/60. (9) Dyslipidemia: Crestor was no longer listed on home med list, but he is willing to take it. - Continue statin (10) Mitral regurgitation: Moderate least severe-severe, noted on echocardiogram, secondary to dilated cardiomyopathy. - Follow with cardiology (11) DVT prophylaxis: Heparin drip Subjective Actually with more pain today. More discomfort in the LUQ. Reports no fevers/chills, chest pain, shortness of breath, nausea, or vomiting. Physical Exam Constitutional: WD/WN, vitals as above Eyes: EOM intact bilaterally; no conjunctival abnormality ENMT: external ear and nose normal, oropharynx normal Neck: trachea midline, no thyromegaly normal visual inspection Respiratory: normal respiratory effort, lungs clear to auscultation no respiratory distress Cardiovascular: Rate/Rhythm: regular rate and + irregularly irregular Heart Sounds: normal S1 and normal S2 Vessels: no JVD Extremities: no edema Gastrointestinal (Abdomen): Inspection/Auscultation: abdomen normal to inspection; abdomen not distended Musculoskeletal: no cyanosis or clubbing, extremities motor strength 5/5 Skin: no rashes, warm and dry Neurologic: moves all extremities and awake Psychiatric: Orientation: alert, oriented to person and cooperative Results & Data Vital Signs (Past 12 Hours) Vital Signs Temp Pulse Resp BP BP Pulse Ox 02/01/19 11:22 36.5 C 84 18 100/74 96 02/01/19 08:00 36.8 C 89 22 135/84 95 02/01/19 03:45 36.6 C 83 19 99/59 L 92 PG Care Time/CCT Total # of Minutes Spent Total Time Spent with Patient: Total time spent is greater than 50% in coordination of care (as documented) at patient's floor/unit and/or counseling patient:
[2019-02-02] MEDS: RIVAROXABAN 15 MG TAB PO SCH (06:37)
[2019-02-02] MEDS: OXYCODONE/ACETAMINOPHEN 10-325 TAB PO PRN ×2 (06:38→14:48)
[2019-02-02 07:15] LABS: Hematocrit (blood only) 43.1 % (42-52); Hemoglobin 14.6 g/dL (14.0-18.0); Mean Corpuscular Hemoglobin 30.2 pg (25-34); Mean Corpuscular Hgb Conc 33.9 g/dL (32-36); Mean Platelet Volume 10.6 fL (7.4-10.4); Platelet Count 314 K/uL (130-400); RDW Coefficient of Variation 14.7 % (11.5-14.5); RDW Standard Deviation 47.8 fL (36.4-46.3); Red Blood Count 4.84 M/uL (4.7-6.1); White Blood Count 7.16 K/uL (4.8-10.8)
[2019-02-02] MEDS: SPIRONOLACTONE 25 MG TAB PO SCH (09:30)
[2019-02-02] MEDS: POLYETHYLENE (MIRALAX) 17 GM PACK PO SCH (09:30)
[2019-02-02] MEDS: OXYCODONE HCL 10 MG TABCR (OXYCONTIN) PO SCH (09:31)
[2019-02-02] MEDS: lisinopriL 5 MG TAB PO SCH (09:31)
[2019-02-02] MEDS: TAMSULOSIN HCL 0.4 MG CAP PO SCH (09:32)
[2019-02-02] MEDS: DOCUSATE SODIUM 100 MG CAP PO SCH (09:32)
[2019-02-02] MEDS: METOPROLOL SUCC 50MG EXT REL TAB PO SCH (09:32)
[2019-02-02] MEDS: VENLAFAXINE HCL XR 37.5 MG CAPXR PO SCH (09:32)
[2019-02-02] MEDS: ROSUVASTATIN CALCIUM 5 MG TAB PO SCH (09:32)
[2019-02-02] MEDS: FUROSEMIDE 40 MG TAB PO SCH (09:32)
[2019-02-02] MEDS: GABAPENTIN 600 MG TAB PO SCH ×2 (09:32→14:49)
[2019-02-02] MEDS: PANTOprazole 40 MG TAB PO SCH (09:32)
--- NOTE | 2019-02-02 13:02 | Cardiology Progress Note ---
Date of Service February 02, 2019 Assessment & Plan (1) NSTEMI (non-ST elevated myocardial infarction): Likely demand related. No recurrent symptoms of chest discomfort. Will continue on his current outpatient regimen in this regard. (2) Cardiomyopathy: He does not seem volume overloaded. Lung examination is relatively benign today although he does have some splinting with deep inspiration. He is not describing breathing difficulty. I think he can continue on his outpatient medical regimen. (3) Atrial fibrillation with RVR: His heart rates at rest seem adequate. He has higher heart rates with activity but generally speaking they are still well controlled. I suspect this to continue to improve as his pain improved. I think discharging him on his current prescription for beta-blockade seems reasonable. (4) Nonsustained ventricular tachycardia: He meets criteria for an ICD based exclusively on his degree of LV dysfunction. We have had this discussion in the past and he has refused. Will continue him on beta-blockade currently. Subjective This morning cleaning feeling slightly better. He still did report some dizziness with ambulation. He has only ambulated around the room but overall his abdominal pain seems mildly improved. He is on oral medications and appears to be tolerating them well. No sense of palpitation. No chest pain. No significant breathing limitations. Review of Systems Review of Systems: Per HPI Physical Exam Physical Exam: The patient is alert and oriented. Mood and affect appeared normal. He answered all questions appropriately. HEENT: Pupils are equal and reactive to light and accommodation. Extraocular movements are intact. The sclerae are anicteric. Neuro: Cranial nerves intact Lungs: Clear to auscultation bilaterally. He has good air movement without use of accessory muscles. No rales wheezes or rhonchi. Cardiac: Heart demonstrates an irregular rate and rhythm. Normal S1 and S2. No murmurs on examination. Pulses: The patient has palpable radial pulses bilaterally that are equal in intensity Extremities: There was no evidence of hypoperfusion. There is no cyanosis or clubbing. There is no edema. Skin: I did not appreciate any rashes on examination today. Results & Data Vital Signs (Past 12 Hours) Vital Signs Temp Pulse Resp BP Pulse Ox 02/02/19 11:42 82 16 113/84 94 02/02/19 09:37 114/71 02/02/19 08:00 37 C 77 16 90/58 L 92 02/02/19 03:55 36.4 C L 76 19 106/75 91 PG Care Time/CCT Total # of Minutes Spent Total Time Spent with Patient: Total time spent is greater than 50% in coordination of care (as documented) at patient's floor/unit and/or counseling patient:
--- NOTE | 2019-02-02 16:12 | Discharge Summary ---
Date of Service February 02, 2019 Principal Diagnosis Splenic infarct from embolism likely from his heart due to atrial fibrillation Discharge Exam Constitutional WD/WN, vitals as above Eyes EOM intact bilaterally; no conjunctival abnormality ENMT external ear and nose normal, oropharynx normal Neck trachea midline, no thyromegaly normal visual inspection Respiratory normal respiratory effort, lungs clear to auscultation no respiratory distress Cardiovascular Rate/Rhythm: regular rate and + irregularly irregular Heart Sounds: normal S1 and normal S2 Vessels: no JVD Extremities: no edema Gastrointestinal (Abdomen) Inspection/Auscultation: abdomen normal to inspection; abdomen not distended Musculoskeletal no cyanosis or clubbing, extremities motor strength 5/5 Skin no rashes, warm and dry Neurologic moves all extremities and awake Psychiatric Orientation: alert, oriented to person and cooperative Discharge Data Allergies Allergy/AdvReac Type Severity Reaction Status Date / Time No Known Allergies Allergy Mild Verified 01/25/19 23:04 Consultations 01/26/19 01:29 ED Decision to Admit Stat 01/26/19 03:38 Consult Cardiology Routine 01/26/19 09:35 Consult General Surgery Routine Ordered Studies 01/25/19 23:12 CT angio abdomen pelvis w con Urgent CT angio chest dissec wo/w con Urgent 01/28/19 09:55 CT abd pelvis IV con only Urgent Hospital Course (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 This is presumed to be embolic in nature from his low EF or untreated afib (had been refusing anticoagulation in the office). Repeat CT abdomen/pelvis on 01/28 with large splenic infarct again demonstrated but no evidence of abscess or necrosis. - General surgery saw the patient recommended pain control, appropriate vaccinations for asplenia at some point, and observation. Pain improved while he was hospitalized. - May take weeks for pain to resolve, though it is improving overall. Discharged on limited pain regimen. Hopefully his pain improves/resolves and he can get off all these medications in 2-3 weeks. - Will need proper vaccinations for asplenia with PCP after discharge (2) Atrial fibrillation with RVR: Previously not on anticoagulation due to being a Chads-Vasc of 1. - Presently on metoprolol succinate 100 mg BID - Rates are better controlled today. HR ~ 80s. = We considered this an embolic event, so his Chads-Vasc is now 3. He was started on heparin gtt without any bleeding, and was transitioned to Xarelto on discharge. First month free and $3/month after that. Patient was agreeable to this. (3) NSTEMI (non-ST elevated myocardial infarction): Troponin peaked at 4 and came back down, type II demand ischemia secondary to rapid atrial fibrillation in the setting of severe systolic dysfunction. Cardiac catheterization within the last year was performed at [place] and apparently had non-obstructive disease. Checked echocardiogram - no change from previous. - On Xarelto for A. fib and splenic artery thrombus as above - Continue metoprolol, statin (4) Cardiomyopathy: EF noted to be 25%, non-ischemic cardiomyopathy thought to be related to previous tachyarrhythmia. Cardiac catheterization earlier this year non- obstructive disease as per reports. - Previously was wearing a life vest and now declines ICD placement - With marked cardiomegaly seen on imaging - Continue medical management with beta-tawny, ACEi, and spironolactone. (5) Chronic systolic (congestive) heart failure: Repeat echo here unchanged from previous with EF severely reduced and severely dilated LV, EF 25%. - Continue Lasix and spironolactone. - Continued lower-dose lisinopril for low normal blood pressures while achieving rate control with increased dose of metoprolol - Appears euvolemic today. (6) Nonsustained ventricular tachycardia: Several small runs daily, asymptomatic. Longer, 35-beat run on 01/31. Still asymptomatic. Has declined ICD in the past. Discussed with Dr. Mccullough on 01/31. - Increased beta-tawny as above (7) Acid reflux disease: - Continue pantoprazole (8) HTN (hypertension): Unclear if he has this diagnosis or is just on guideline directed therapy for CHF - BP stable/normal today at 135/60. (9) Dyslipidemia: Crestor was no longer listed on home med list, but he is willing to take it. - Continue statin (10) Mitral regurgitation: Moderate least severe-severe, noted on echocardiogram, secondary to dilated cardiomyopathy. - Follow with cardiology (11) DVT prophylaxis: Heparin drip Total Time Total Time Spent Total Time Spent (In Minutes): 55 Discharge Plan Discharge Items Patient Disposition: Home - Self-Care Reason For Visit: A-FIB RVR Discharge Diagnosis: Atrial fibrillation with fast heart beat & spleen infarct Activity: Resume your previous activity Non-emergency contact: Primary Care Provider, Surgeon and Marketing Communications Coordinator Call non-emergency contact if: your symptoms worsen, your pain is not controlled, your pain is worsening and your temperature is above 101 Follow-up/Referrals: Flynn Jc MD [Physician] - 02/06/19 2:15 pm (Please, follow up at [facility] Cardiology Office with Dr. Jc on TuesdayFebruary 06 at 2:15 pm. *If you need to change this appointment, call the office at [phone].) Rosalind Motley MD [Primary Care Provider] - 02/08/19 11:15 am (Please, follow up with Dr. Mayorga on February 08 at 11:15 am. *If you need to change this appointment, call the office at [phone].) Diet: Heart Healthy Addtl Attending Provider Instructions: Mr. Alvarado, You were admitted to the hospital with a fast heart rate due to atrial fibrillation as well as a clot that went to your spleen and caused it to lose blood flow. We thinned your blood with a blood thinner, and we are starting you on a pill form of a blood thinner to help your spleen recover if possible. This is called Xarelto and should be taken 2 times per day about 12 hours apart. Take for first dose at home tonight before bedtime. After 3 weeks, you will only need 1 pill per day. We lowered your lisinopril to 5 mg every day and increased your metoprolol in an effort to keep your heart rate normal. We are giving you some pain medication to help with the pain in the left side of your abdomen. The surgeons feel this could take a few weeks to fully go away. Please follow up with your PCP and Dr. Jc in the office. You will need immunizations to stay healthy as your spleen helps your immune system work. Pending Studies at Discharge: No Stand-Alone Forms: Call Back Authorization, My [facility], Smoking Cessation Medications and DC Order Prescriptions: New gabapentin 600 mg Tablet 600 mg PO BID Qty: 30 RF: 0 oxycodone-acetaminophen [Percocet] 5-325 mg tablet 1 tab PO Q4H PRN (Reason: pain) Qty: 20 RF: 0 Xarelto 15 mg (42)- 20 mg (9) tablets,dose pack See Rx Instructions .ROUTE .COMPLEX Qty: 51 RF: 0 oxycodone 10 mg tablet,oral only,ext.rel.12 hr 10 mg PO Q12H Qty: 14 RF: 0 Continued cyclobenzaprine 5 mg tablet 5 mg PO TID PRN (Reason: muscle spasm) 5 Days Qty: 14 RF: 0 benzonatate 100 mg capsule 100 mg PO TID PRN (Reason: Cough) Qty: 30 RF: 0 nitroglycerin 0.4 mg tablet, sublingual 0.4 mg SL Q5M PRN (Reason: chest pain) Qty: 30 RF: 0 spironolactone 25 mg Tablet 25 mg PO DAILY RF: 0 docusate sodium 100 mg Tablet 100 mg PO DAILY PRN (Reason: Constipation) RF: 0 pantoprazole 40 mg Tablet,Delayed Release (Dr/Ec) 40 mg PO DAILY RF: 0 sennosides [Senno] 8.6 mg Tablet 8.6 mg PO DAILY PRN (Reason: Constipation) RF: 0 prednisone 10 mg tablet 10 mg PO DIRECTED Qty: 31 RF: 0 rosuvastatin [Crestor] 5 mg Tablet 5 mg PO QAM Qty: 30 RF: 0 furosemide 40 mg tablet 40 mg PO DAILY RF: 0 tamsulosin 0.4 mg capsule 0.4 mg PO DAILY RF: 0 Changed metoprolol succinate 50 mg tablet extended release 24 hr 100 mg PO BID Qty: 0 RF: 0 lisinopril 10 mg tablet 5 mg PO DAILY Qty: 60 RF: 5 Discontinued tramadol 50 mg tablet 50 mg PO HS PRN (Reason: pain) Qty: 10 RF: 0 Discharge Orders: Discharge Order (Routine); Ordered 02/02/19 Ordered By: Bean Gutierrez Print Language: Argentine Admission Data Admit Date/Time: 01/26/19 02:41 Attending Provider: Bean Gutierrez Admit Provider: Fredi Ward Primary Care Provider: Rosalind Motley V. Other Providers: Alfred Mccullough ; Scarlet Tarango ; Bean Gutierrez ; Fredi Ward Other Interventions: Discharge Summary Assessment (RN) Last Done: 02/02/19 13:53
[2019-02-22] MEDS ORDERED: RIVAROXABAN 20 MG TAB PO SCH (16:30)
== END 2019-02-02 17:19 | disposition home or self-care (01) | DRG 281 ==
LOC: ED 21:47 → SUATTDRO 01-26 02:41 → 2E 01-26 02:41

== ENCOUNTER 2020-03-06 15:53 | Observation (INO) ==
[2020-03-06] MEDS ORDERED: ACETAMINOPHEN 325 MG TAB PO STA (16:16)
[2020-03-06] MEDS ORDERED: SODIUM CHLORIDE 0.9% 500 ML IV ONE (16:16)
--- NOTE | 2020-03-06 16:20 | Emergency Department Note ---
Impression & Plan Pneumonia due to COVID-19 virus, Breath shortness, Abnormal ECG ED Provider Note NAME: ROBIN LAL AGE: 60 SEX: M : 1960 ARRIVES VIA: Walk-In INFORMANT: Patient ED PROVIDER(S): Julio Forbes DO CHIEF COMPLAINT: Cough, shortness of breath HPI: Patient is a 60-year-old male with a past medical history of nonischemic cardiomyopathy, hypertension who presents to the ER for cough and shortness of breath. Symptoms started 1-1/2 weeks ago. Multiple family members are positive with Covid. He has not been tested. He notes the cough has been getting worse. Shortness of breath has also been getting worse. He denies any chest pain. He admits to some left lower quadrant abdominal pain. Some intermittent diarrhea. No nausea or vomiting. Intermittent dysuria as well. No reported fevers above 100.4. Has been having diffuse myalgias and arthralgias. ROS: See above HPI for pertinent positives & negatives. A total of 10 systems reviewed and were otherwise negative. PAST MEDICAL HISTORY:See Below PAST SURGICAL HISTORY:See Below FAMILY HISTORY:See Below SOCIAL HISTORY:See Below HOME MEDICATIONS:See Below ALLERGIES:See Below VITALS:See Below PHYSICAL EXAMINATION: GENERAL: Sitting up in bed, alert, well appearing, well nourished, no distress, non-toxic EYE EXAM: normal conjunctiva. OROPHARYNX: Mask in place NECK: supple, no nuchal rigidity, no adenopathy, non-tender LUNGS: Clear to auscultation. Normal chest wall mechanics HEART: no murmurs, S1 normal and S2 normal ABDOMEN: abdomen soft, non-tender, normo-active bowel sounds, no masses, no rebound or guarding. UPPER EXTREMITIES: upper extremities are grossly normal. LOWER EXTREMITIES: No pitting edema. NEURO EXAM: Normal sensorium, cranial nerves II-XII grossly intact, normal speech, no gross weakness of arms, no gross weakness of legs. MEDICAL DECISION MAKING: Patient is a 60-year-old male with a past medical history of nonischemic cardiomyopathy, permanent A. fib, chronic systolic heart failure, severe MR who presents the ER for cough, congestion and shortness of breath. Multiple family members positive with Covid. IV was established blood work was obtained. He was found to be febrile and tachycardic. He has not missed any doses of his rivaroxaban. Labs showed no significant leukocytosis or anemia. INR 1.2. BMP along with LFTs bilirubin was unremarkable. Troponin was positive at 0.186. He does have a chronically elevated troponin. Repeat was obtained and was unchanged. proBNP was 1212. Influenza was negative. Covid was positive. CT of the chest and belly shows multifocal pneumonia. He was given IV Rocephin and azithromycin with the persistent fevers and symptoms have been present for nearly 10 days. With the EKG which shows slightly worsening ST depressions did discuss with the hospitalist for further evaluation. Triage Nursing notes reviewed. Limited review of prior medical records performed Vital Signs: reviewed and remarkable for HTN Differential diagnosis: Differential diagnoses includes but is not limited to pneumonia, bronchitis, COPD/Asthma exacerbation, pneumothorax, pulmonary embolism, congestive heart failure, acute coronary syndrome ER treatment provided: See below Diagnostics interpreted by me: ECG: A. fib rate of [address] depressions in the high lateral leads ST depressions in the inferior leads with T wave inversions Septal Q waves ST depressions and T wave inversions in the lateral leads Inferior leads as well as lateral leads are worse in comparison to previous Cardiac Monitoring: An order was placed for continuous cardiac monitoring. The monitor shows a rate of 80 with sinus rhythm. Laboratory studies: As stated above and show below. Imaging studies: CT angio of the chest shows multifocal bilateral infiltrates CT abdomen pelvis shows no acute pathology Consultation(s): Discussed with hospitalist for further evaluation Procedures: none Critical Care: None Past Med/Surg History Medical History Acid reflux disease Arm fracture, left (2018) Chronic systolic (congestive) heart failure Compression fracture of L1 lumbar vertebra (2019) Dermatitis Dyslipidemia Fall from ladder (2019) HTN (hypertension) Nonsustained ventricular tachycardia Normal coronary arteries (2019) NSTEMI (non-ST elevated myocardial infarction) (2019) Osteoporosis Permanent atrial fibrillation 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) Vitamin D deficiency Surgical History Hx of tonsillectomy Family History Father Coronary heart disease Hypertension Mother Hypertension Brother Hypertension Social History Smoking Status: Never smoker Second Hand Exposure: No; Hx Alcohol Use: No Hx Substance Use: No Preferred Language: Estonian Communication Ability: Effective Communication Tools: IPad Skin Diver Required: Yes Beliefs That Will Affect Care: None marital status: Current Living Situation: Family current occupational status: disabled Feels Safe at Home: Yes Seatbelt Use: always Assistive Devices: None Allergies Allergies Allergy/AdvReac Type Severity Reaction Status Date / Time No Known Allergies Allergy Mild Verified 03/06/20 17:39 Home Meds Home Medications Medication Instructions Recorded Confirmed benzonatate [Tessalon Perles] 100 mg PO TID 03/06/20 03/06/20 Previous Rx's Medication Instructions Recorded gabapentin 600 mg PO BID #30 tab 01/31/19 pantoprazole 40 mg tablet,delayed 40 mg PO DAILY #30 tab 09/24/19 release betamethasone, augmented 0.05 % 1 applic TOPICAL BID #15 g 02/28/20 topical cream furosemide 40 mg tablet 40 mg PO DAILY #30 tab 02/28/20 lisinopril 10 mg tablet 10 mg PO BID #180 tab 02/28/20 metoprolol succinate 50 mg 50 mg PO DAILY #90 tab 02/28/20 tablet,extended release 24 hr nitroglycerin 0.4 mg sublingual 0.4 mg SL Q5M PRN #30 tab 02/28/20 tablet rivaroxaban 20 mg tablet 20 mg PO Q2D #90 tab 02/28/20 rosuvastatin 5 mg tablet 5 mg PO QAM #90 tab 02/28/20 Results & Data (ED) Vital Signs Vital Signs - 24 hr 03/06/20 15:55 03/06/20 16:45 03/06/20 16:52 Temperature 38.6 C H Temperature Source Oral Pulse Rate 57 L 104 H 98 H Pulse Rate [Right Finger] Pulse Rate from SpO2 Sensor Pulse Rhythm Regular Respiratory Rate 22 26 H 20 Respiratory Effort / Characteristics Short of Breath Respiratory Depth Normal Respiratory Pattern Regular Blood Pressure 141/77 H 137/100 Blood Pressure [Left Arm] Blood Pressure Mean 98 104 Blood Pressure Mean [Left Arm] Blood Pressure Position Sitting Pulse Oximetry 93 96 94 Oxygen Delivery Method Room Air Room Air Room Air Sepsis Recent Fever Within 48 Hours No Sepsis New/Unexplained Change in Mental Status No Sepsis Action Taken by Nursing No Action Required 03/06/20 16:53 03/06/20 17:30 03/06/20 18:30 Temperature Temperature Source Pulse Rate 96 H 94 H Pulse Rate [Right Finger] Pulse Rate from SpO2 Sensor 90 89 Pulse Rhythm Respiratory Rate 17 21 Respiratory Effort / Characteristics Respiratory Depth Respiratory Pattern Blood Pressure 133/96 Blood Pressure [Left Arm] Blood Pressure Mean 108 Blood Pressure Mean [Left Arm] Blood Pressure Position Pulse Oximetry 94 95 96 Oxygen Delivery Method Room Air Room Air Room Air Sepsis Recent Fever Within 48 Hours Sepsis New/Unexplained Change in Mental Status Sepsis Action Taken by Nursing 03/06/20 18:38 03/06/20 19:57 Temperature 37 C Temperature Source Oral Pulse Rate Pulse Rate [Right Finger] 91 H 82 Pulse Rate from SpO2 Sensor Pulse Rhythm Respiratory Rate 22 18 Respiratory Effort / Characteristics Spontaneous Non-Labored Spontaneous Respiratory Depth Normal Respiratory Pattern Blood Pressure Blood Pressure [Left Arm] 104/70 104/70 Blood Pressure Mean Blood Pressure Mean [Left Arm] 81 81 Blood Pressure Position Pulse Oximetry 94 94 Oxygen Delivery Method Room Air Room Air Sepsis Recent Fever Within 48 Hours Sepsis New/Unexplained Change in Mental Status Sepsis Action Taken by Nursing Laboratory Data Result diagrams: 03/06/20 16:44 03/06/20 16:44 Lab Results 03/06/20 03/06/20 03/06/20 Range/Units 16:44 16:44 16:44 WBC 4.81 (4.8-10.8) K/uL RBC 5.57 (4.7-6.1) M/uL Hgb 17.1 (14.0-18.0) g/dL POC Hgb (14.0-18.0) g/dl Hct 49.2 (42-52) % POC Hct (42-52) % MCV 88.3 (80-100) fL MCH 30.7 (25-34) pg MCHC 34.8 (32-36) g/dL RDW Std Deviation 46.1 (36.4-46.3) fL RDW Coeff of Rachana 14.2 (11.5-14.5) % Plt Count 121 L (130-400) K/uL MPV 11.9 H (7.4-10.4) fL Immature Gran % (Auto) 0.0 % Neut % (Auto) 40.7 % Lymph % (Auto) 46.4 % Waldo % (Auto) 12.7 % Eos % (Auto) 0.0 % Baso % (Auto) 0.2 % Neut # (Auto) 1.96 (1.4-6.5) K/uL Lymph # (Auto) 2.23 (1.2-3.4) K/uL Waldo # (Auto) 0.61 H (0.11-0.59) K/uL Eos # (Auto) 0.00 (0-0.5) K/uL Baso # (Auto) 0.01 (0-0.2) K/uL Immature Gran # (Auto) 0.00 (0.00-0.02) K/uL PT 12.2 H (9.0-12.0) Seconds INR 1.2 H (0.9-1.1) APTT 37.5 H (21.0-31.0) Seconds PTT Ratio 1.3 POC Sodium (135-144) mmol/L Sodium 139 (136-145) mmol/L POC Potassium (3.3-5.0) mmol/L Potassium 3.7 (3.5-5.1) mmol/L POC Chloride (101-112) mmol/L Chloride 106 (98-107) mmol/L Carbon Dioxide 26 (21-32) mmol/L POC Total CO2 (24-31) mmol/L Anion Gap 7.0 (3-11) POC Anion Gap (16-25) mmol/L POC BUN (7-18) mg/dl BUN 15 (7-18) mg/dl Creatinine 1.05 (0.6-1.4) mg/dl POC Creatinine (0.6-1.3) mg/dl Est Cr Clr Drug Dosing 81.3 ml/min Est GFR ( Amer) 89.6 Est GFR (Non-Af Amer) 77.3 BUN/Creatinine Ratio 14.4 (10-20) Glucose 107 H (70-99) mg/dl POC Glucose (other) (70-99) mg/dl Calcium 8.6 (8.5-10.1) mg/dl POC Ioniz Calcium Baron (1.12-1.32) mmol/l Total Bilirubin 0.7 (0.2-1) mg/dl AST 24 (15-37) U/L ALT 37 (12-78) U/L Alkaline Phosphatase 95 (45-117) U/L Troponin I 0.189 H* (0-0.045) ng/ml NT-Pro-B Natriuret Pep (0-900) pg/ml Total Protein 7.5 (6.4-8.2) gm/dl Albumin 3.5 (3.4-5.0) gm/dl Globulin 4.0 (2.5-4.0) gm/dl Albumin/Globulin Ratio 0.9 (0.9-2) Lipase 132 (73-393) U/L COVID-19 Eval Order SARS-CoV-2 (PCR) (Negative) Nasopharyn COVID-19 PCR Influenza Type A (PCR) Influenza Type B (PCR) RSV (RT-PCR) (Neg) 03/06/20 03/06/20 03/06/20 Range/Units 16:44 16:45 16:45 WBC (4.8-10.8) K/uL RBC (4.7-6.1) M/uL Hgb (14.0-18.0) g/dL POC Hgb (14.0-18.0) g/dl Hct (42-52) % POC Hct (42-52) % MCV (80-100) fL MCH (25-34) pg MCHC (32-36) g/dL RDW Std Deviation (36.4-46.3) fL RDW Coeff of Rachana (11.5-14.5) % Plt Count (130-400) K/uL MPV (7.4-10.4) fL Immature Gran % (Auto) % Neut % (Auto) % Lymph % (Auto) % Waldo % (Auto) % Eos % (Auto) % Baso % (Auto) % Neut # (Auto) (1.4-6.5) K/uL Lymph # (Auto) (1.2-3.4) K/uL Waldo # (Auto) (0.11-0.59) K/uL Eos # (Auto) (0-0.5) K/uL Baso # (Auto) (0-0.2) K/uL Immature Gran # (Auto) (0.00-0.02) K/uL PT (9.0-12.0) Seconds INR (0.9-1.1) APTT (21.0-31.0) Seconds PTT Ratio POC Sodium (135-144) mmol/L Sodium (136-145) mmol/L POC Potassium (3.3-5.0) mmol/L Potassium (3.5-5.1) mmol/L POC Chloride (101-112) mmol/L Chloride (98-107) mmol/L Carbon Dioxide (21-32) mmol/L POC Total CO2 (24-31) mmol/L Anion Gap (3-11) POC Anion Gap (16-25) mmol/L POC BUN (7-18) mg/dl BUN (7-18) mg/dl Creatinine (0.6-1.4) mg/dl POC Creatinine (0.6-1.3) mg/dl Est Cr Clr Drug Dosing ml/min Est GFR ( Amer) Est GFR (Non-Af Amer) BUN/Creatinine Ratio (10-20) Glucose (70-99) mg/dl POC Glucose (other) (70-99) mg/dl Calcium (8.5-10.1) mg/dl POC Ioniz Calcium Baron (1.12-1.32) mmol/l Total Bilirubin (0.2-1) mg/dl AST (15-37) U/L ALT (12-78) U/L Alkaline Phosphatase (45-117) U/L Troponin I (0-0.045) ng/ml NT-Pro-B Natriuret Pep 1212 H (0-900) pg/ml Total Protein (6.4-8.2) gm/dl Albumin (3.4-5.0) gm/dl Globulin (2.5-4.0) gm/dl Albumin/Globulin Ratio (0.9-2) Lipase (73-393) U/L COVID-19 Eval Order Covid19 Sent to [facility] SARS-CoV-2 (PCR) (Negative) Nasopharyn COVID-19 PCR Cancelled Influenza Type A (PCR) Cancelled Influenza Type B (PCR) Cancelled RSV (RT-PCR) (Neg) 03/06/20 03/06/20 03/06/20 Range/Units 16:45 16:45 16:50 WBC (4.8-10.8) K/uL RBC (4.7-6.1) M/uL Hgb (14.0-18.0) g/dL POC Hgb 17.7 (14.0-18.0) g/dl Hct (42-52) % POC Hct 52 (42-52) % MCV (80-100) fL MCH (25-34) pg MCHC (32-36) g/dL RDW Std Deviation (36.4-46.3) fL RDW Coeff of Rachana (11.5-14.5) % Plt Count (130-400) K/uL MPV (7.4-10.4) fL Immature Gran % (Auto) % Neut % (Auto) % Lymph % (Auto) % Waldo % (Auto) % Eos % (Auto) % Baso % (Auto) % Neut # (Auto) (1.4-6.5) K/uL Lymph # (Auto) (1.2-3.4) K/uL Waldo # (Auto) (0.11-0.59) K/uL Eos # (Auto) (0-0.5) K/uL Baso # (Auto) (0-0.2) K/uL Immature Gran # (Auto) (0.00-0.02) K/uL PT (9.0-12.0) Seconds INR (0.9-1.1) APTT (21.0-31.0) Seconds PTT Ratio POC Sodium 139 (135-144) mmol/L Sodium (136-145) mmol/L POC Potassium 3.7 (3.3-5.0) mmol/L Potassium (3.5-5.1) mmol/L POC Chloride 102 (101-112) mmol/L Chloride (98-107) mmol/L Carbon Dioxide (21-32) mmol/L POC Total CO2 24 (24-31) mmol/L Anion Gap (3-11) POC Anion Gap 18.0 (16-25) mmol/L POC BUN 16 (7-18) mg/dl BUN (7-18) mg/dl Creatinine (0.6-1.4) mg/dl POC Creatinine 0.9 (0.6-1.3) mg/dl Est Cr Clr Drug Dosing ml/min Est GFR ( Amer) Est GFR (Non-Af Amer) BUN/Creatinine Ratio (10-20) Glucose (70-99) mg/dl POC Glucose (other) 111 H (70-99) mg/dl Calcium (8.5-10.1) mg/dl POC Ioniz Calcium Baron 1.11 L (1.12-1.32) mmol/l Total Bilirubin (0.2-1) mg/dl AST (15-37) U/L ALT (12-78) U/L Alkaline Phosphatase (45-117) U/L Troponin I (0-0.045) ng/ml NT-Pro-B Natriuret Pep (0-900) pg/ml Total Protein (6.4-8.2) gm/dl Albumin (3.4-5.0) gm/dl Globulin (2.5-4.0) gm/dl Albumin/Globulin Ratio (0.9-2) Lipase (73-393) U/L COVID-[address] Eval [address] [facility]Rsv at [facility] SARS-CoV-2 (PCR) POSITIVE A* (Negative) Nasopharyn COVID-19 PCR Influenza Type A (PCR) Negative Influenza Type B (PCR) Negative RSV (RT-PCR) Negative (Neg) 03/06/20 Range/Units 18:42 WBC (4.8-10.8) K/uL RBC (4.7-6.1) M/uL Hgb (14.0-18.0) g/dL POC Hgb (14.0-18.0) g/dl Hct (42-52) % POC Hct (42-52) % MCV (80-100) fL MCH (25-34) pg MCHC (32-36) g/dL RDW Std Deviation (36.4-46.3) fL RDW Coeff of Rachana (11.5-14.5) % Plt Count (130-400) K/uL MPV (7.4-10.4) fL Immature Gran % (Auto) % Neut % (Auto) % Lymph % (Auto) % Waldo % (Auto) % Eos % (Auto) % Baso % (Auto) % Neut # (Auto) (1.4-6.5) K/uL Lymph # (Auto) (1.2-3.4) K/uL Waldo # (Auto) (0.11-0.59) K/uL Eos # (Auto) (0-0.5) K/uL Baso # (Auto) (0-0.2) K/uL Immature Gran # (Auto) (0.00-0.02) K/uL PT (9.0-12.0) Seconds INR (0.9-1.1) APTT (21.0-31.0) Seconds PTT Ratio POC Sodium (135-144) mmol/L Sodium (136-145) mmol/L POC Potassium (3.3-5.0) mmol/L Potassium (3.5-5.1) mmol/L POC Chloride (101-112) mmol/L Chloride (98-107) mmol/L Carbon Dioxide (21-32) mmol/L POC Total CO2 (24-31) mmol/L Anion Gap (3-11) POC Anion Gap (16-25) mmol/L POC BUN (7-18) mg/dl BUN (7-18) mg/dl Creatinine (0.6-1.4) mg/dl POC Creatinine (0.6-1.3) mg/dl Est Cr Clr Drug Dosing ml/min Est GFR ( Amer) Est GFR (Non-Af Amer) BUN/Creatinine Ratio (10-20) Glucose (70-99) mg/dl POC Glucose (other) (70-99) mg/dl Calcium (8.5-10.1) mg/dl POC Ioniz Calcium Baron (1.12-1.32) mmol/l Total Bilirubin (0.2-1) mg/dl AST (15-37) U/L ALT (12-78) U/L Alkaline Phosphatase (45-117) U/L Troponin I 0.187 H* (0-0.045) ng/ml NT-Pro-B Natriuret Pep (0-900) pg/ml Total Protein (6.4-8.2) gm/dl Albumin (3.4-5.0) gm/dl Globulin (2.5-4.0) gm/dl Albumin/Globulin Ratio (0.9-2) Lipase (73-393) U/L COVID-19 Eval Order SARS-CoV-2 (PCR) (Negative) Nasopharyn COVID-19 PCR Influenza Type A (PCR) Influenza Type B (PCR) RSV (RT-PCR) (Neg) Administered Medications Discontinued Medications Acetaminophen (Acetaminophen 325 Mg Tab) 650 mg PO NOW STA Stop: 03/06/20 16:17 Last Admin: 03/06/20 17:10 Dose: 650 mg Documented by: [id number] Azithromycin (Azithromycin 250 Mg Tab) 500 mg PO NOW ONE Stop: 03/06/20 19:41 Last Admin: 03/06/20 19:57 Dose: 500 mg Documented by: [id number] Sodium Chloride (Nss) 500 mls @ 999 mls/hr IV .Q31M ONE Stop: 03/06/20 16:46 Last Infusion: 03/06/20 18:12 Dose: 0 mls/hr Documented by: [id number] Admin: 03/06/20 17:10 Dose: 999 mls/hr Documented by: [id number] Ceftriaxone Sodium (Rocephin) 1,000 mg in 50 mls @ 100 mls/hr IV NOW STA Stop: 03/06/20 20:09 Last Infusion: 03/06/20 20:31 Dose: 0 mls/hr Documented by: [id number] Admin: 03/06/20 19:57 Dose: 100 mls/hr Documented by: [id number] Ibuprofen (Ibuprofen 200 Mg Tab) 400 mg PO NOW STA Stop: 03/06/20 17:52 Last Admin: 03/06/20 18:35 Dose: 400 mg Documented by: [id number] Ioversol (Optiray 320 125ml) 116 ml IV ONCE ONE Stop: 03/06/20 17:13 Last Admin: 03/06/20 17:12 Dose: 116 ml Documented by: [id number] Discharge Plan Visit Data Chief Complaint: Cough Stated Complaint: COUGH, CHILLS, SOB ED Provider: Julio Forbes Discharge Problem: Pneumonia due to COVID-19 virus, Breath shortness, Abnormal ECG Forms Stand Alone Forms: Replaced By [facility] Prescriptions Prescriptions: No Action pantoprazole 40 mg tablet,delayed release (DR/EC) 40 mg PO DAILY Qty: 30 RF: 5 rosuvastatin [Crestor] 5 mg tablet 5 mg PO QAM Qty: 90 RF: 3 betamethasone, augmented 0.05 % cream 1 applic topical BID Qty: 15 RF: 5 lisinopril 10 mg tablet 10 mg PO BID Qty: 180 RF: 3 nitroglycerin 0.4 mg tablet, sublingual 0.4 mg SL Q5M PRN (Reason: chest pain) Qty: 30 RF: 0 rivaroxaban 20 mg tablet 20 mg PO Q2D Qty: 90 RF: 3 furosemide 40 mg tablet 40 mg PO DAILY Qty: 30 RF: 5 metoprolol succinate 50 mg tablet extended release 24 hr 50 mg PO DAILY Qty: 90 RF: 5 benzonatate [Tessalon Perles] 100 mg capsule 100 mg PO TID RF: 0 gabapentin 600 mg Tablet 600 mg PO BID Qty: 30 RF: 0
[2020-03-06 16:53] LABS: Basophils # (auto) 0.01 K/uL (0-0.2); Basophils % (auto) 0.2 %; Hematocrit (blood only) 49.2 % (42-52); Hemoglobin 17.1 g/dL (14.0-18.0); Lymphocytes # (auto) 2.23 K/uL (1.2-3.4); Lymphocytes % (auto) 46.4 %; Mean Corpuscular Hemoglobin 30.7 pg (25-34); Mean Corpuscular Hgb Conc 34.8 g/dL (32-36); Mean Corpuscular Volume 88.3 fL (80-100); Mean Platelet Volume 11.9 fL (7.4-10.4); Monocytes # (auto) 0.61 K/uL (0.11-0.59); Monocytes % (auto) 12.7 %; Neutrophils # (auto) 1.96 K/uL (1.4-6.5); Neutrophils % (auto) 40.7 %; Platelet Count 121 K/uL (130-400); RDW Coefficient of Variation 14.2 % (11.5-14.5); RDW Standard Deviation 46.1 fL (36.4-46.3); Red Blood Count 5.57 M/uL (4.7-6.1); White Blood Count 4.81 K/uL (4.8-10.8)
[2020-03-06 17:03] LABS: iSTAT Creatinine 0.9 mg/dl (0.6-1.3); iSTAT Hemoglobin 17.7 g/dl (14.0-18.0); iSTAT Ionized Calcium 1.11 mmol/l (1.12-1.32); iSTAT Potassium 3.7 mmol/L (3.3-5.0)
--- NOTE | 2020-03-06 17:05 | XRay Report ---
XR chest 1V portable CLINICAL HISTORY: Chest Pain COMPARISON STUDY: Chest CT January 26, 2019. FINDINGS: Lung volumes are normal. There is no pneumothorax. No pleural effusion is identified. Marke d cardiomegaly is unchanged. There is mild interstitial pulmonary edema. Mild bilateral airspace opac ities are present. IMPRESSION: 1. Marked cardiomegaly. Pulmonary vascular congestion with suspected mild pulmonary edema. 2. Mild bilateral airspace opacities which may reflect an infectious process or pulmonary edema. ACT 112: Negative or not required by law. Electronically signed by: David Echavarria M.D. 03/06/2020 5:04 PM
[2020-03-06 17:06] LABS: INR 1.2 (0.9-1.1); Partial Thromboplastin Ratio 1.3; Partial Thromboplastin Time 37.5 Seconds (21.0-31.0); Prothrombin Time 12.2 Seconds (9.0-12.0)
[2020-03-06 17:12] LABS: Albumin Level 3.5 gm/dl (3.4-5.0); BUN Creatinine Ratio 14.4 (10-20); Calcium 8.6 mg/dl (8.5-10.1); Creatinine Clr Calc Pharmacy 81.3 ml/min; Est GFR (African American) 89.6; Est GFR (Non-African American) 77.3; Potassium 3.7 mmol/L (3.5-5.1)
[2020-03-06] MEDS ORDERED: OPTIRAY 320 125ml IV ONE (17:12)
[2020-03-06 17:21] LABS: Albumin Globulin Ratio 0.9 (0.9-2); Bilirubin,Total 0.7 mg/dl (0.2-1); Total Protein 7.5 gm/dl (6.4-8.2); Troponin I 0.189 ng/ml (0-0.045)
--- NOTE | 2020-03-06 17:37 | CT Scan Report ---
CT ANGIOGRAPHY OF THE CHEST, PULMONARY EMBOLUS PROTOCOL CLINICAL HISTORY: Shortness of breath. Evaluate for pulmonary embolus. COMPARISON STUDY: Chest CT January 26, 2019. TECHNIQUE: Following IV administration of 116 mL of Optiray-320, helical axial images of the chest we re obtained utilizing the pulmonary embolus protocol. Maximal intensity projections and sagittal and coronal reformats were viewed on an independent 3D workstation. IV contrast was administered withou t complication. Automated exposure control was utilized for the study. A dose lowering technique wa s utilized adhering to the principles of ALARA. CT DOSE: 1492.42 mGycm FINDINGS: No pulmonary emboli are identified although the segmental and subsegmental pulmonary arter ies are suboptimally assessed due to respiratory motion. Marked cardiomegaly is unchanged. There is n o pericardial effusion. There are trace bilateral pleural effusions. No pneumothorax is present. Prom inent mediastinal and bilateral hilar lymph nodes are likely reactive. Numerous groundglass opacities are noted within the lungs. Central airways are patent. Bony thorax is unremarkable. Abdomen and pel vis will be reported separately. IMPRESSION: 1. No pulmonary emboli identified although segmental and subsegmental pulmonary arteries suboptimally assessed due to respiratory motion. 2. Multifocal groundglass opacities within the lungs suggestive of viral pneumonia. 3. Trace bilateral pleural effusions. 4. Marked cardiomegaly. ACT 112: Negative or not required by law. Electronically signed by: David Echavarria M.D. 03/06/2020 5:35 PM
--- NOTE | 2020-03-06 17:50 | CT Scan Report ---
CT OF THE ABDOMEN AND PELVIS WITH CONTRAST CLINICAL HISTORY: Abdominal pain. COMPARISON STUDY: CT of the abdomen and pelvis January 28, 2019. Renal ultrasound January 16, 2020. TECHNIQUE: Following IV administration of 116 mL of Optiray-320, axial images of the abdomen and pelv is were obtained from the lung bases to the proximal femurs. Images were reviewed in the axial, sagit terrence, and coronal planes. IV contrast was administered without complication. Automated exposure contr ol was utilized for the study. A dose lowering technique was utilized adhering to the principles of ALARA. FINDINGS: Please note that the chest CT will be reported separately. Marked cardiomegaly is noted. Th ere are trace bilateral pleural effusions. No pneumatosis, free air or portal venous gas is present. The liver, adrenal glands, kidneys and pancreas are normal. Spleen is somewhat diminutive and irregul ar. There is an old splenic infarct. There is no hydronephrosis. No biliary or pancreatic ductal dila tation is noted. Mild mesenteric infiltration is unchanged. There is no evidence for a bowel obstruct ion. The caliber and wall thickness of small and large bowel are normal. Colonic diverticulosis is no lino. The appendix is normal. No acute lumbar spine or pelvic fracture is noted. There are multiple ol d lumbar spine compression fractures which are unchanged. Major vasculature is patent. IMPRESSION: 1. No acute process within the abdomen or pelvis. 2. No bowel obstruction. No bowel wall thickening. 3. Colonic diverticulosis without evidence for acute diverticulitis. Normal appendix. ACT 112: Negative or not required by law. Electronically signed by: David Echavarria M.D. 03/06/2020 5:48 PM
[2020-03-06] MEDS ORDERED: IBUPROFEN 200 MG TAB PO STA (17:51)
[2020-03-06 19:18] LABS: Troponin I 0.187 ng/ml (0-0.045)
[2020-03-06] MEDS ORDERED: cefTRIAXone SODIUM 1,000 MG/50 ML BAG IV STA (19:40)
[2020-03-06] MEDS ORDERED: AZITHROMYCIN 250 MG TAB PO ONE (19:40)
[2020-03-06 20:32] LABS: Influenza A virus by PCR Negative (Neg); Influenza B virus by PCR Negative (Neg); RSV by PCR Negative (Neg)
[2020-03-06 20:38] LABS: SARS CoV2 RNA(COVID-19) InHosp POSITIVE (Negative)
--- NOTE | 2020-03-06 21:58 | History & Physical Report ---
Date of Service March 06, 2020 Assessment & Plan (1) Pneumonia due to COVID-19 virus: Patient febrile. Adequate oxygen saturations on room air - currently 97%. No respiratory distress. -Maintain isolation precautions -Montior oxygen saturation - no treatment with steroids or Remdesivir at this time -Tessalon PRN -Tylenol PRN Present on Admission?: Yes (2) Abnormal ECG: Patient with lateral ST depressions. He complains of intermittent left sided chest pain over the last week. Troponin is elevated at 0.187 - chronically elevated, today's value is much less than prior. Presently without CP -Telemetry monitoring -Trend troponin q 8 hours x 2. -Continued outpatient followup Present on Admission?: Yes (3) HTN (hypertension): Blood pressure acceptable -Continue Lisinopril -Continue metoprolol -Continue to montior Present on Admission?: Yes (4) Nonischemic cardiomyopathy: Patient appears euvolemic at this time -Continue metoprolol -Conitnue Lisinopril -Continue daily PO Lasix -Telemetry monitoring Present on Admission?: Yes (5) Permanent atrial fibrillation: Patient currently in atrial fibrillation, rate of 88 bpm -Continue Metoprolol 50mg po daily -Continue Xarelto 20mg po daily Present on Admission?: Yes (6) Acid reflux disease: Chronic. Stable -Continue Protonix 40mg po daily Present on Admission?: Yes (7) Dyslipidemia: Chronic. Stable. -Continue Crestor Present on Admission?: Yes (8) Peripheral neuropathy: Chronic -Continue Gabapentin F/E/N - Heplock. Monitor electrolytes. Heart healthy diet as tolerated Ppx - Patient on Rivaroxaban for history of AF Code - Full per discussion with patient Dispo -Admit to medical with telemetry monitoring Present on Admission?: Yes History of Present Illness Chief Complaint: SOB Primary Care Provider: Rosalind Motley MD Patient speaks Danish. History obtained through rehabilitation tech service at bedside. Dickson Alvarado is a 60yo male presenting with one week of SOB and cough. He denies fever, chills, nausea, vomiting, diarrhea. He has had some intermittent left sided chest discomfort over the last week. No additional complaints at this time. Patient febrile on arrival at 38.6, tachycardic otherwise HD stable. Oxygen saturations adequate on RA. Admission requested for EKG changes in setting of Covid-19 infection, significant cardiac history ER Course: NSS x 500mL, Tylenol, Ibuprofen, Ceftriaxone x 1gm, Azithromycin x 500mg Allergies Allergy/AdvReac Type Severity Reaction Status Date / Time No Known Allergies Allergy Mild Verified 03/06/20 17:39 Home Medications Medication Instructions Recorded Confirmed Type gabapentin 600 mg PO BID #30 tab 01/31/19 03/06/20 Rx pantoprazole 40 mg tablet,delayed 40 mg PO DAILY #30 tab 09/24/19 03/06/20 Rx release betamethasone, augmented 0.05 % 1 applic TOPICAL BID #15 g 02/28/20 03/06/20 Rx topical cream furosemide 40 mg tablet 40 mg PO DAILY #30 tab 02/28/20 03/06/20 Rx lisinopril 10 mg tablet 10 mg PO BID #180 tab 02/28/20 03/06/20 Rx metoprolol succinate 50 mg 50 mg PO DAILY #90 tab 02/28/20 03/06/20 Rx tablet,extended release 24 hr nitroglycerin 0.4 mg sublingual 0.4 mg SL Q5M PRN #30 tab 02/28/20 03/06/20 Rx tablet rivaroxaban 20 mg tablet 20 mg PO Q2D #90 tab 02/28/20 03/06/20 Rx rosuvastatin 5 mg tablet 5 mg PO QAM #90 tab 02/28/20 03/06/20 Rx benzonatate [Tessalon Perles] 100 mg PO TID 03/06/20 03/06/20 History Past Med/Surg History Medical History Acid reflux disease Arm fracture, left (2018) Chronic systolic (congestive) heart failure Compression fracture of L1 lumbar vertebra (2019) Dermatitis Dyslipidemia Fall from ladder (2019) HTN (hypertension) Nonsustained ventricular tachycardia Normal coronary arteries (2019) NSTEMI (non-ST elevated myocardial infarction) (2019) Osteoporosis Permanent atrial fibrillation 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) Vitamin D deficiency Surgical History Hx of tonsillectomy Family History Father Coronary heart disease Hypertension Mother Hypertension Brother Hypertension Social History Smoking Status: Never smoker Second Hand Exposure: No; Hx Alcohol Use: No Hx Substance Use: No Preferred Language: Danish Communication Ability: Impaired Communication Tools: IPad Utility Operator Yarn Required: No Beliefs That Will Affect Care: None marital status: Current Living Situation: Spouse current occupational status: disabled Feels Safe at Home: Yes Safety Concerns: Feels Safe At This Time Seatbelt Use: always Assistive Devices: None Review of Systems Review of Systems: All systems reviewed & are unremarkable except as noted in HPI & below Physical Exam Physical Exam: General: patient resting comfortably, NAD, non-toxic in appearance Skin: warm, dry, intact, no rashes or lesions HEENT: NC/AT, PERRL, EOMI, anicteric sclera, conjunctiva without injection, external ear normal to inspection and nontender, nares patent, moist mucus membranes, dentition intact, no oropharyngeal lesions, neck supple, trachea midl ine, no LAD, no thyromegaly, no JVD Heart: +S1/S2, irregularly irregular, tachycardic, no m/r/g Lungs: equal air entry bilaterally, no rales/rhonchi/wheezes Abd: +BS, soft, NT/ND, no masses/organomegaly/ascites Ext: warm, 2+ pulses in UE/LE bilaterally, no clubbing/cyanosis or edema Neuro: nonfocal Results & Data Results & Data ([facility]) Vital Signs (Past 12 Hours) Vital Signs Temp Pulse Pulse Resp BP BP Pulse Ox 03/06/20 19:57 82 18 104/70 94 03/06/20 18:38 37 C 91 H 22 104/70 94 03/06/20 18:30 94 H 21 96 03/06/20 17:30 96 H 17 133/96 95 03/06/20 16:53 94 03/06/20 16:52 98 H 20 94 03/06/20 16:45 38.6 C H 104 H 26 H 137/100 96 03/06/20 15:55 57 L 22 141/77 H 93 Laboratory Results Lab Results 03/06/20 03/06/20 03/06/20 Range/Units 16:44 16:44 16:44 WBC 4.81 (4.8-10.8) K/uL RBC 5.57 (4.7-6.1) M/uL Hgb 17.1 (14.0-18.0) g/dL POC Hgb (14.0-18.0) g/dl Hct 49.2 (42-52) % POC Hct (42-52) % MCV 88.3 (80-100) fL MCH 30.7 (25-34) pg MCHC 34.8 (32-36) g/dL RDW Std Deviation 46.1 (36.4-46.3) fL RDW Coeff of Rachana 14.2 (11.5-14.5) % Plt Count 121 L (130-400) K/uL MPV 11.9 H (7.4-10.4) fL Immature Gran % (Auto) 0.0 % Neut % (Auto) 40.7 % Lymph % (Auto) 46.4 % [place] % (Auto) 12.7 % Eos % (Auto) 0.0 % Baso % (Auto) 0.2 % Neut # (Auto) 1.96 (1.4-6.5) K/uL Lymph # (Auto) 2.23 (1.2-3.4) K/uL [place] # (Auto) 0.61 H (0.11-0.59) K/uL Eos # (Auto) 0.00 (0-0.5) K/uL Baso # (Auto) 0.01 (0-0.2) K/uL Immature Gran # (Auto) 0.00 (0.00-0.02) K/uL PT 12.2 H (9.0-12.0) Seconds INR 1.2 H (0.9-1.1) APTT 37.5 H (21.0-31.0) Seconds PTT Ratio 1.3 POC Sodium (135-144) mmol/L Sodium 139 (136-145) mmol/L POC Potassium (3.3-5.0) mmol/L Potassium 3.7 (3.5-5.1) mmol/L POC Chloride (101-112) mmol/L Chloride 106 (98-107) mmol/L Carbon Dioxide 26 (21-32) mmol/L POC Total CO2 (24-31) mmol/L Anion Gap 7.0 (3-11) POC Anion Gap (16-25) mmol/L POC BUN (7-18) mg/dl BUN 15 (7-18) mg/dl Creatinine 1.05 (0.6-1.4) mg/dl POC Creatinine (0.6-1.3) mg/dl Est Cr Clr Drug Dosing 81.3 ml/min Est GFR ( Amer) 89.6 Est GFR (Non-Af Amer) 77.3 BUN/Creatinine Ratio 14.4 (10-20) Glucose 107 H (70-99) mg/dl POC Glucose (other) (70-99) mg/dl Calcium 8.6 (8.5-10.1) mg/dl POC Ioniz Calcium Baron (1.12-1.32) mmol/l Total Bilirubin 0.7 (0.2-1) mg/dl AST 24 (15-37) U/L ALT 37 (12-78) U/L Alkaline Phosphatase 95 (45-117) U/L Troponin I 0.189 H* (0-0.045) ng/ml NT-Pro-B Natriuret Pep (0-900) pg/ml Total Protein 7.5 (6.4-8.2) gm/dl Albumin 3.5 (3.4-5.0) gm/dl Globulin 4.0 (2.5-4.0) gm/dl Albumin/Globulin Ratio 0.9 (0.9-2) Lipase 132 (73-393) U/L COVID-19 Eval Order SARS-CoV-2 (PCR) (Negative) Nasopharyn COVID-19 PCR Influenza Type A (PCR) Influenza Type B (PCR) RSV (RT-PCR) (Neg) 03/06/20 03/06/20 03/06/20 Range/Units 16:44 16:45 16:45 WBC (4.8-10.8) K/uL RBC (4.7-6.1) M/uL Hgb (14.0-18.0) g/dL POC Hgb (14.0-18.0) g/dl Hct (42-52) % POC Hct (42-52) % MCV (80-100) fL MCH (25-34) pg MCHC (32-36) g/dL RDW Std Deviation (36.4-46.3) fL RDW Coeff of Rachana (11.5-14.5) % Plt Count (130-400) K/uL MPV (7.4-10.4) fL Immature Gran % (Auto) % Neut % (Auto) % Lymph % (Auto) % [place] % (Auto) % Eos % (Auto) % Baso % (Auto) % Neut # (Auto) (1.4-6.5) K/uL Lymph # (Auto) (1.2-3.4) K/uL [place] # (Auto) (0.11-0.59) K/uL Eos # (Auto) (0-0.5) K/uL Baso # (Auto) (0-0.2) K/uL Immature Gran # (Auto) (0.00-0.02) K/uL PT (9.0-12.0) Seconds INR (0.9-1.1) APTT (21.0-31.0) Seconds PTT Ratio POC Sodium (135-144) mmol/L Sodium (136-145) mmol/L POC Potassium (3.3-5.0) mmol/L Potassium (3.5-5.1) mmol/L POC Chloride (101-112) mmol/L Chloride (98-107) mmol/L Carbon Dioxide (21-32) mmol/L POC Total CO2 (24-31) mmol/L Anion Gap (3-11) POC Anion Gap (16-25) mmol/L POC BUN (7-18) mg/dl BUN (7-18) mg/dl Creatinine (0.6-1.4) mg/dl POC Creatinine (0.6-1.3) mg/dl Est Cr Clr Drug Dosing ml/min Est GFR ( Amer) Est GFR (Non-Af Amer) BUN/Creatinine Ratio (10-20) Glucose (70-99) mg/dl POC Glucose (other) (70-99) mg/dl Calcium (8.5-10.1) mg/dl POC Ioniz Calcium Baron (1.12-1.32) mmol/l Total Bilirubin (0.2-1) mg/dl AST (15-37) U/L ALT (12-78) U/L Alkaline Phosphatase (45-117) U/L Troponin I (0-0.045) ng/ml NT-Pro-B Natriuret Pep 1212 H (0-900) pg/ml Total Protein (6.4-8.2) gm/dl Albumin (3.4-5.0) gm/dl Globulin (2.5-4.0) gm/dl Albumin/Globulin Ratio (0.9-2) Lipase (73-393) U/L COVID-19 Eval Order Covid19 Sent to [facility] SARS-CoV-2 (PCR) (Negative) Nasopharyn COVID-19 PCR Cancelled Influenza Type A (PCR) Cancelled Influenza Type B (PCR) Cancelled RSV (RT-PCR) (Neg) 03/06/20 03/06/20 03/06/20 Range/Units 16:45 16:45 16:50 WBC (4.8-10.8) K/uL RBC (4.7-6.1) M/uL Hgb (14.0-18.0) g/dL POC Hgb 17.7 (14.0-18.0) g/dl Hct (42-52) % POC Hct 52 (42-52) % MCV (80-100) fL MCH (25-34) pg MCHC (32-36) g/dL RDW Std Deviation (36.4-46.3) fL RDW Coeff of Rachana (11.5-14.5) % Plt Count (130-400) K/uL MPV (7.4-10.4) fL Immature Gran % (Auto) % Neut % (Auto) % Lymph % (Auto) % [place] % (Auto) % Eos % (Auto) % Baso % (Auto) % Neut # (Auto) (1.4-6.5) K/uL Lymph # (Auto) (1.2-3.4) K/uL [place] # (Auto) (0.11-0.59) K/uL Eos # (Auto) (0-0.5) K/uL Baso # (Auto) (0-0.2) K/uL Immature Gran # (Auto) (0.00-0.02) K/uL PT (9.0-12.0) Seconds INR (0.9-1.1) APTT (21.0-31.0) Seconds PTT Ratio POC Sodium 139 (135-144) mmol/L Sodium (136-145) mmol/L POC Potassium 3.7 (3.3-5.0) mmol/L Potassium (3.5-5.1) mmol/L POC Chloride 102 (101-112) mmol/L Chloride (98-107) mmol/L Carbon Dioxide (21-32) mmol/L POC Total CO2 24 (24-31) mmol/L Anion Gap (3-11) POC Anion Gap 18.0 (16-25) mmol/L POC BUN 16 (7-18) mg/dl BUN (7-18) mg/dl Creatinine (0.6-1.4) mg/dl POC Creatinine 0.9 (0.6-1.3) mg/dl Est Cr Clr Drug Dosing ml/min Est GFR ( Amer) Est GFR (Non-Af Amer) BUN/Creatinine Ratio (10-20) Glucose (70-99) mg/dl POC Glucose (other) 111 H (70-99) mg/dl Calcium (8.5-10.1) mg/dl POC Ioniz Calcium Baron 1.11 L (1.12-1.32) mmol/l Total Bilirubin (0.2-1) mg/dl AST (15-37) U/L ALT (12-78) U/L Alkaline Phosphatase (45-117) U/L Troponin I (0-0.045) ng/ml NT-Pro-B Natriuret Pep (0-900) pg/ml Total Protein (6.4-8.2) gm/dl Albumin (3.4-5.0) gm/dl Globulin (2.5-4.0) gm/dl Albumin/Globulin Ratio (0.9-2) Lipase (73-393) U/L COVID-19 Eval Order CovFluRsv at [facility] SARS-CoV-2 (PCR) POSITIVE A* (Negative) Nasopharyn COVID-19 PCR Influenza Type A (PCR) Negative Influenza Type B (PCR) Negative RSV (RT-PCR) Negative (Neg) 03/06/20 Range/Units 18:42 WBC (4.8-10.8) K/uL RBC (4.7-6.1) M/uL Hgb (14.0-18.0) g/dL POC Hgb (14.0-18.0) g/dl Hct (42-52) % POC Hct (42-52) % MCV (80-100) fL MCH (25-34) pg MCHC (32-36) g/dL RDW Std Deviation (36.4-46.3) fL RDW Coeff of Rachana (11.5-14.5) % Plt Count (130-400) K/uL MPV (7.4-10.4) fL Immature Gran % (Auto) % Neut % (Auto) % Lymph % (Auto) % [place] % (Auto) % Eos % (Auto) % Baso % (Auto) % Neut # (Auto) (1.4-6.5) K/uL Lymph # (Auto) (1.2-3.4) K/uL [place] # (Auto) (0.11-0.59) K/uL Eos # (Auto) (0-0.5) K/uL Baso # (Auto) (0-0.2) K/uL Immature Gran # (Auto) (0.00-0.02) K/uL PT (9.0-12.0) Seconds INR (0.9-1.1) APTT (21.0-31.0) Seconds PTT Ratio POC Sodium (135-144) mmol/L Sodium (136-145) mmol/L POC Potassium (3.3-5.0) mmol/L Potassium (3.5-5.1) mmol/L POC Chloride (101-112) mmol/L Chloride (98-107) mmol/L Carbon Dioxide (21-32) mmol/L POC Total CO2 (24-31) mmol/L Anion Gap (3-11) POC Anion Gap (16-25) mmol/L POC BUN (7-18) mg/dl BUN (7-18) mg/dl Creatinine (0.6-1.4) mg/dl POC Creatinine (0.6-1.3) mg/dl Est Cr Clr Drug Dosing ml/min Est GFR ( Amer) Est GFR (Non-Af Amer) BUN/Creatinine Ratio (10-20) Glucose (70-99) mg/dl POC Glucose (other) (70-99) mg/dl Calcium (8.5-10.1) mg/dl POC Ioniz Calcium Baron (1.12-1.32) mmol/l Total Bilirubin (0.2-1) mg/dl AST (15-37) U/L ALT (12-78) U/L Alkaline Phosphatase (45-117) U/L Troponin I 0.187 H* (0-0.045) ng/ml NT-Pro-B Natriuret Pep (0-900) pg/ml Total Protein (6.4-8.2) gm/dl Albumin (3.4-5.0) gm/dl Globulin (2.5-4.0) gm/dl Albumin/Globulin Ratio (0.9-2) Lipase (73-393) U/L COVID-19 Eval Order SARS-CoV-2 (PCR) (Negative) Nasopharyn COVID-19 PCR Influenza Type A (PCR) Influenza Type B (PCR) RSV (RT-PCR) (Neg) Diagnostic Findings CT OF THE ABDOMEN AND PELVIS WITH CONTRAST CLINICAL HISTORY: Abdominal pain. COMPARISON STUDY: CT of the abdomen and pelvis January 28, 2019. Renal ultrasound January 16, 2020. TECHNIQUE: Following IV administration of 116 mL of Optiray-320, axial images of the abdomen and pelvis were obtained from the lung bases to the proximal femurs. Images were reviewed in the axial, sagittal, and coronal planes. IV contrast was administered without complication. Automated exposure control was utilized for the study. A dose lowering technique was utilized adhering to the principles of ALARA. FINDINGS: Please note that the chest CT will be reported separately. Marked cardiomegaly is noted. There are trace bilateral pleural effusions. No pneumatosis, free air or portal venous gas is present. The liver, adrenal glands, kidneys and pancreas are normal. Spleen is somewhat diminutive and irregular. There is an old splenic infarct. There is no hydronephrosis. No biliary or pancreatic ductal dilatation is noted. Mild mesenteric infiltration is unchanged. There is no evidence for a bowel obstruction. The caliber and wall thickness of small and large bowel are normal. Colonic diverticulosis is noted. The appendix is normal. No acute lumbar spine or pelvic fracture is noted. There are multiple old lumbar spine compression fractures which are unchanged. Major vasculature is patent. IMPRESSION: 1. No acute process within the abdomen or pelvis. 2. No bowel obstruction. No bowel wall thickening. 3. Colonic diverticulosis without evidence for acute diverticulitis. Normal appendix. ACT 112: Negative or not required by law. Electronically signed by: David Echavarria M.D. 03/06/2020 5:48 PM Dictated: 03/06/201734Transcribed: 03/06/201734 CT ANGIOGRAPHY OF THE CHEST, PULMONARY EMBOLUS PROTOCOL CLINICAL HISTORY: Shortness of breath. Evaluate for pulmonary embolus. COMPARISON STUDY: Chest CT January 26, 2019. TECHNIQUE: Following IV administration of 116 mL of Optiray-320, helical axial images of the chest were obtained utilizing the pulmonary embolus protocol. Maximal intensity projections and sagittal and coronal reformats were viewed on an independent 3D workstation. IV contrast was administered without complication. Automated exposure control was utilized for the study. A dose lowering technique was utilized adhering to the principles of ALARA. CT DOSE: 1492.42 mGycm FINDINGS: No pulmonary emboli are identified although the segmental and subsegmental pulmonary arteries are suboptimally assessed due to respiratory motion. Marked cardiomegaly is unchanged. There is no pericardial effusion. There are trace bilateral pleural effusions. No pneumothorax is present. Prominent mediastinal and bilateral hilar lymph nodes are likely reactive. Numerous groundglass opacities are noted within the lungs. Central airways are patent. Bony thorax is unremarkable. Abdomen and pelvis will be reported separately. IMPRESSION: 1. No pulmonary emboli identified although segmental and subsegmental pulmonary arteries suboptimally assessed due to respiratory motion. 2. Multifocal groundglass opacities within the lungs suggestive of viral pneumonia. 3. Trace bilateral pleural effusions. 4. Marked cardiomegaly. ACT 112: Negative or not required by law. Electronically signed by: David Echavarria M.D. 03/06/2020 5:35 PM Dictated: 03/06/201730Transcribed: 03/06/201730 XR chest 1V portable CLINICAL HISTORY: Chest Pain COMPARISON STUDY: Chest CT January 26, 2019. FINDINGS: Lung volumes are normal. There is no pneumothorax. No pleural effusion is identified. Marked cardiomegaly is unchanged. There is mild interstitial pulmonary edema. Mild bilateral airspace opacities are present. IMPRESSION: 1. Marked cardiomegaly. Pulmonary vascular congestion with suspected mild pulmonary edema. 2. Mild bilateral airspace opacities which may reflect an infectious process or pulmonary edema. ACT 112: Negative or not required by law. Electronically signed by: David Echavarria M.D. 03/06/2020 5:04 PM Dictated: 03/06/201701Transcribed: 03/06/201701 ECG Additional Comments: EKG with AF at 105, QRS=98, JMp=543, ST depressions present in V5-V6, Code Status & VTE Plan VTE Prophylaxis Plan VTE Prophylaxis will be ordered: Yes PG Care Time/CCT Total # of Minutes Spent Total Time Spent with Patient: Total time spent is greater than 50% in coordination of care (as documented) at patient's floor/unit and/or counseling patient: Coding Level of Care Code 81651 Initial Inpt Care Lvl 3 Diagnoses Pneumonia due to COVID-19 virus U07.1; J12.82 Abnormal ECG R94.31 HTN (hypertension) I10 Hypertension type: unspecified Nonischemic cardiomyopathy I42.8 Permanent atrial fibrillation I48.21 Acid reflux disease K21.9 Esophagitis presence: esophagitis presence not specified Dyslipidemia E78.5 Peripheral neuropathy G62.9 Peripheral neuropathy type: polyneuropathy, unspecified (1) HTN (hypertension) Hypertension type: unspecified Qualified Code(s): I10 - Essential (primary) hypertension (2) Acid reflux disease Esophagitis presence: esophagitis presence not specified Qualified Code(s): K21.9 - Gastro-esophageal reflux disease without esophagitis (3) Peripheral neuropathy Peripheral neuropathy type: polyneuropathy, unspecified Qualified Code(s): G62.9 - Polyneuropathy, unspecified
[2020-03-06] MEDS ORDERED: ACETAMINOPHEN 325 MG TAB PO PRN (23:56)
[2020-03-06] MEDS ORDERED: ONDANSETRON INJ 2 MG/ML 2 ML VIAL IV PRN (23:56)
[2020-03-07 00:16] LABS: Magnesium 1.9 mg/dl (1.8-2.4)
[2020-03-07] MEDS: PANTOprazole 40 MG TAB PO SCH (08:15)
[2020-03-07] MEDS: METOPROLOL SUCC 50MG EXT REL TAB PO SCH (08:15)
[2020-03-07] MEDS: GABAPENTIN 600 MG TAB PO SCH ×2 (08:15→20:17)
[2020-03-07] MEDS: lisinopril 10 MG TAB PO SCH ×2 (08:15→20:17)
[2020-03-07] MEDS: ROSUVASTATIN CALCIUM 5 MG TAB PO SCH (08:16)
[2020-03-07] MEDS: BENZONATATE 100 MG CAPSULE PO SCH ×4 (08:16→22:56)
[2020-03-07] MEDS: RIVAROXABAN 20 MG TAB PO SCH (08:16)
[2020-03-07] MEDS ORDERED: FUROSEMIDE 40 MG TAB PO SCH (09:00)
[2020-03-07] MEDS ORDERED: traMADol HCL 50 MG TABLET PO PRN (14:20)
--- NOTE | 2020-03-07 14:30 | Hospitalist Progress Note ---
Date of Service March 07, 2020 Assessment & Plan (1) Pneumonia due to COVID-19 virus: Patient febrile. Adequate oxygen saturations on room air - currently 97%. No respiratory distress. - Maintain isolation precautions - Monitor oxygen saturation - no treatment with steroids or Remdesivir at this time - Tessalon & guaifenesin PRN - Tylenol standing with PRN tramadol (2) Abnormal ECG: Patient with lateral ST depressions. He complains of intermittent left sided chest pain over the last week. - Troponin remained stable x 4 draws at ~0.2. - Continued outpatient follow-up (3) HTN (hypertension): Blood pressure acceptable at 115/65. - Continue lisinopril & metoprolol (4) Nonischemic cardiomyopathy: Patient appears euvolemic at this time. Per notes from cardiology, he does NOT take Lasix at home. Is non-compliant with it. - Continue metoprolol & lisinopril - Hold daily PO Lasix (not taking it at home regularly per cardiology note from 02/2020). (5) Permanent atrial fibrillation: Patient currently in atrial fibrillation, rate of 99 bpm. - Continue metoprolol - Continue Xarelto 20mg po daily (6) Acid reflux disease: Chronic. Stable. - Continue Protonix 40mg po daily (7) Dyslipidemia: Chronic. Stable. - Continue Crestor (8) Peripheral neuropathy: Chronic. - Continue gabapentin (9) DVT prophylaxis: On Xarelto for afib Admission and Anticipated Discharge Date Admission Date: March 06, 2020 Subjective Still with left chest pain with coughing. Reports no fevers/chills, shortness of breath, abdominal pain, nausea, or vomiting. Physical Exam Constitutional: WD/WN, vitals as above + acute distress Eyes: EOM intact bilaterally; no conjunctival abnormality ENMT: external ear and nose normal, oropharynx normal Neck: trachea midline, no thyromegaly normal visual inspection Respiratory: normal respiratory effort, lungs clear to auscultation no respiratory distress Cardiovascular: Rate/Rhythm: + tachycardic and + irregularly irregular Heart Sounds: normal S1 and normal S2 Extremities: no edema Gastrointestinal (Abdomen): Inspection/Auscultation: abdomen normal to inspection; abdomen not distended Musculoskeletal: no cyanosis or clubbing, extremities motor strength 5/5 Skin: no rashes, warm and dry Neurologic: moves all extremities and awake Psychiatric: Orientation: alert, oriented to person and cooperative Results & Data Results & Data ([facility]) Vital Signs (Past 12 Hours) Vital Signs Temp Pulse Pulse Resp BP BP Pulse Ox 03/07/20 11:56 37.7 C H 99 H 24 114/64 94 03/07/20 08:09 37.3 C 98 H 87 20 102/65 92 03/07/20 04:20 36.8 C 78 20 117/80 93 03/07/20 04:16 36.6 C 79 18 123/77 94 PG Care Time/CCT Total # of Minutes Spent Total Time Spent with Patient: Total time spent is greater than 50% in coordination of care (as documented) at patient's floor/unit and/or counseling patient: Coding Level of Care Code 13831 Subseq Hosp Care Lvl 2 Diagnoses Pneumonia due to COVID-19 virus U07.1; J12.82 Abnormal ECG R94.31 HTN (hypertension) I10 Hypertension type: unspecified Nonischemic cardiomyopathy I42.8 Permanent atrial fibrillation I48.21 Acid reflux disease K21.9 Esophagitis presence: esophagitis presence not specified Dyslipidemia E78.5 Peripheral neuropathy G62.9 Peripheral neuropathy type: polyneuropathy, unspecified DVT prophylaxis Z29.9 (1) HTN (hypertension) Hypertension type: unspecified Qualified Code(s): I10 - Essential (primary) hypertension (2) Acid reflux disease Esophagitis presence: esophagitis presence not specified Qualified Code(s): K21.9 - Gastro-esophageal reflux disease without esophagitis (3) Peripheral neuropathy Peripheral neuropathy type: polyneuropathy, unspecified Qualified Code(s): G62.9 - Polyneuropathy, unspecified
[2020-03-07] MEDS: ACETAMINOPHEN 325 MG TAB PO SCH ×2 (14:41→20:16)
--- NOTE | 2020-03-07 22:40 | Electrocardiogram Report ---
Test Reason : Blood Pressure : / mmHG Vent. Rate : 105 BPM Atrial Rate : 119 BPM P-R Int : 000 ms QRS Dur : 098 ms QT Int : 336 ms P-R-T Axes : 000 -03 082 degrees QTc Int : 444 ms Atrial fibrillation with rapid ventricular response Anteroseptal infarct , age undetermined Abnormal ECG When compared with ECG of 30-JAN-2019 18:28, Anteroseptal infarct is now Present Nonspecific T wave abnormality, worse in Inferior leads Confirmed by Ta Murray ([id number]) on 03/07/2020 10:40:00 PM Referred By: REFERRED SELF Confirmed By:Ta Murray
[2020-03-08] MEDS ORDERED: METOPROLOL SUCC 25MG EXT REL TAB PO STA (00:38)
[2020-03-08] MEDS: ACETAMINOPHEN 325 MG TAB PO SCH ×3 (03:54→14:50)
[2020-03-08 06:31] LABS: Hemoglobin 16.7 g/dL (14.0-18.0); Mean Corpuscular Hemoglobin 30.9 pg (25-34); Mean Corpuscular Hgb Conc 35.5 g/dL (32-36); Mean Platelet Volume 11.9 fL (7.4-10.4); Platelet Count 112 K/uL (130-400); RDW Coefficient of Variation 14.3 % (11.5-14.5); RDW Standard Deviation 45.6 fL (36.4-46.3)
[2020-03-08 06:52] LABS: BUN Creatinine Ratio 17.5 (10-20); Calcium 8.7 mg/dl (8.5-10.1); Creatinine Clr Calc Pharmacy 75.6 ml/min; Est GFR (African American) 82.9; Est GFR (Non-African American) 71.5; Magnesium 1.9 mg/dl (1.8-2.4); Potassium 3.9 mmol/L (3.5-5.1)
[2020-03-08] MEDS: GABAPENTIN 600 MG TAB PO SCH (08:01)
[2020-03-08] MEDS: BENZONATATE 100 MG CAPSULE PO SCH (08:01)
[2020-03-08] MEDS: lisinopril 10 MG TAB PO SCH (08:01)
[2020-03-08] MEDS: PANTOprazole 40 MG TAB PO SCH (08:02)
[2020-03-08] MEDS: METOPROLOL SUCC 50MG EXT REL TAB PO SCH (08:02)
[2020-03-08] MEDS: ROSUVASTATIN CALCIUM 5 MG TAB PO SCH (08:02)
[2020-03-08] MEDS: RIVAROXABAN 20 MG TAB PO SCH (08:03)
[2020-03-08] MEDS ORDERED: HYDROcodone/HOMATROPINE SYRUP 5MG/1.5MG 5ML UDP PO STA (10:45)
--- NOTE | 2020-03-08 17:56 | Discharge Summary ---
Date of Service March 08, 2020 Admission HPI Per Admitting Provider Patient speaks Rwandan. History obtained through executive steward service at bedside. Dickson Alvarado is a 60yo male presenting with one week of SOB and cough. He denies fever, chills, nausea, vomiting, diarrhea. He has had some intermittent left sided chest discomfort over the last week. No additional complaints at this time. Patient febrile on arrival at 38.6, tachycardic otherwise HD stable. Oxygen saturations adequate on RA. Admission requested for EKG changes in setting of Covid-19 infection, significant cardiac history ER Course: NSS x 500mL, Tylenol, Ibuprofen, Ceftriaxone x 1gm, Azithromycin x 500mg Principal Diagnosis Covid-19 Discharge Exam Constitutional WD/WN, vitals as above + acute distress Eyes EOM intact bilaterally; no conjunctival abnormality ENMT external ear and nose normal, oropharynx normal Neck trachea midline, no thyromegaly normal visual inspection Respiratory normal respiratory effort, lungs clear to auscultation no respiratory distress Cardiovascular Rate/Rhythm: + tachycardic and + irregularly irregular Heart Sounds: normal S1 and normal S2 Extremities: no edema Gastrointestinal (Abdomen) Inspection/Auscultation: abdomen normal to inspection; abdomen not distended Musculoskeletal no cyanosis or clubbing, extremities motor strength 5/5 Skin no rashes, warm and dry Neurologic moves all extremities and awake Psychiatric Orientation: alert, oriented to person and cooperative Discharge Data Allergies Allergy/AdvReac Type Severity Reaction Status Date / Time No Known Allergies Allergy Mild Verified 03/06/20 17:39 Consultations 03/06/20 20:11 ED Decision to Admit Stat Ordered Studies 03/06/20 16:16 CT abd pelvis IV con only Stat CT angio chest PE protocol Stat Hospital Course (1) Pneumonia due to COVID-19 virus: Patient febrile. Adequate oxygen saturations on room air - currently 97%. No respiratory distress. - Maintain isolation precautions - Monitor oxygen saturation - no treatment with steroids or Remdesivir at this time - Tessalon & guaifenesin PRN - Tylenol standing with PRN tramadol -> Remained >90% on room air. No fevers by day of discharge. Discharged with cough medication and limited pain medication for chest wall pain. (2) Abnormal ECG: Patient with lateral ST depressions. He complains of intermittent left sided chest pain over the last week. - Troponin remained stable x 4 draws at ~0.2. - Continued outpatient follow-up (3) HTN (hypertension): Blood pressure acceptable at 115/65. - Continue lisinopril & metoprolol (4) Nonischemic cardiomyopathy: Patient appears euvolemic at this time. Per notes from cardiology, he does NOT take Lasix at home. Is non-compliant with it. - Continue metoprolol & lisinopril - Hold daily PO Lasix (not taking it at home regularly per cardiology note from 02/2020). (5) Permanent atrial fibrillation: Patient currently in atrial fibrillation, rate of 99 bpm. - Continue metoprolol - Continue Xarelto 20mg po daily (6) Acid reflux disease: Chronic. Stable. - Continue Protonix 40mg po daily (7) Dyslipidemia: Chronic. Stable. - Continue Crestor (8) Peripheral neuropathy: Chronic. - Continue gabapentin (9) DVT prophylaxis: On Xarelto for afib Total Time Total Time Spent Total Time Spent (In Minutes): 35 Discharge Plan Discharge Items Patient Disposition: Home - Self-Care Reason For Visit: SOB, COVID-19 INFECTION Discharge Diagnosis: Covid-19 infection Activity: Resume your previous activity Non-emergency contact: Primary Care Provider Call non-emergency contact if: your symptoms worsen Follow-up/Referrals: Rosalind Motley MD [Primary Care Provider] - Diet: Heart Healthy Addtl Attending Provider Instructions: You got Covid-19. Please take the cough syrup and pain medication as needed. Please see your PCP. Pending Studies at Discharge: No Stand-Alone Forms: My [facility] [employer], Smoking Cessation Medications and DC Order Prescriptions: New tramadol 50 mg Tablet 50 mg PO Q4H PRN (Reason: pain) Qty: 15 RF: 0 hydrocodone-homatropine [Hycodan (with homatropine)] 5-1.5 mg/5 mL syrup 5 ml PO Q6H PRN (Reason: cough) Qty: 473 RF: 0 Continued pantoprazole 40 mg tablet,delayed release (DR/EC) 40 mg PO DAILY Qty: 30 RF: 5 rosuvastatin [Crestor] 5 mg tablet 5 mg PO QAM Qty: 90 RF: 3 betamethasone, augmented 0.05 % cream 1 applic topical BID Qty: 15 RF: 5 lisinopril 10 mg tablet 10 mg PO BID Qty: 180 RF: 3 nitroglycerin 0.4 mg tablet, sublingual 0.4 mg SL Q5M PRN (Reason: chest pain) Qty: 30 RF: 0 rivaroxaban 20 mg tablet 20 mg PO Q2D Qty: 90 RF: 3 metoprolol succinate 50 mg tablet extended release 24 hr 50 mg PO DAILY Qty: 90 RF: 5 benzonatate [Tessalon Perles] 100 mg capsule 100 mg PO TID RF: 0 gabapentin 600 mg Tablet 600 mg PO BID Qty: 30 RF: 0 Discontinued furosemide 40 mg tablet 40 mg PO DAILY Qty: 30 RF: 5 Discharge Orders: Discharge Order (Routine); Ordered 03/08/20 Ordered By: Bean Gutierrez Admission Data Admit Date/Time: 03/06/20 21:57 Attending Provider: Bean Gutierrez Admit Provider: Veronica Rivera Primary Care Provider: Rosalind Motley V. Other Providers: Bean Gutierrez Other Interventions: Discharge Summary Assessment (RN) Last Done: 03/08/20 16:52 Coding Level of Care Code D/C Day Management >30 mins Diagnoses Pneumonia due to COVID-19 virus U07.1; J12.82 Abnormal ECG R94.31 HTN (hypertension) I10 Hypertension type: unspecified Nonischemic cardiomyopathy I42.8 Permanent atrial fibrillation I48.21 Acid reflux disease K21.9 Esophagitis presence: esophagitis presence not specified Dyslipidemia E78.5 Peripheral neuropathy G62.9 Peripheral neuropathy type: polyneuropathy, unspecified DVT prophylaxis Z29.9
== END 2020-03-08 18:35 | disposition home or self-care (01) ==
LOC: ED 15:53 → SUATTDRO 21:57 → INTOOBSV 21:57 → 2S 21:57

== ENCOUNTER 2020-11-11 11:44 | Observation (INO) ==
--- NOTE | 2020-11-11 12:53 | Emergency Department Note ---
Impression & Plan Pneumonitis, Cough, Elevated troponin I level, Dehydration ED Provider Note NAME: ROBIN LAL AGE: 60 SEX: M : 1960 ARRIVES VIA: Walk-In INFORMANT: Patient, ED PROVIDER(S): Rogelio Gomez MD Chief Complaint: Cough HPI: Patient does present with cough and shortness of breath. The patient has had a productive cough beginning Tuesday. No recent travel or known sick contacts. The patient already had Covid back in February but is not vaccinated. Patient noted free of Daja hernández and has been taking his medications and does follow with Dr. Jc. Patient has not taken anything for his symptoms. Patient does complain of shortness of breath with exertion. Patient denies any nausea vomiting or leg swelling. Patient has been taking his medications. Patient has any sore throat nausea or vomiting. Patient has had chills. No prior history of blood clots no lower swelling. Patient has had decreased appetite. ROS: See HPI for pertinent positives and negatives. A total of 10 systems were r eviewed and otherwise negative. Past medical history: See below Surgical history: See below Social history: See below Physical Exam: GENERAL: Mildly ill in appearance but in no apparent distress, wearing a mask. EYE EXAM: Normal conjunctiva. PERRL, no anisocoria and EOM's grossly intact w/o pain. NECK: Supple, no nuchal rigidity, no adenopathy, non-tender. No signs of meningismus. LUNGS: Clear to auscultation. Normal chest wall mechanics. HEART: Tachycardic and irregularly irregular, no MRG. ABDOMEN: Abdomen soft, non-tender, normo-active bowel sounds, no masses, no rebound or guarding. BACK: No CVA TTP. SKIN: No rashes and no bruising. UPPER EXTREMITIES: Upper extremities are grossly normal. LOWER EXTREMITIES: Grossly normal, no edema. Negative Homans' sign bilaterally. NEURO EXAM: A&O x3, cranial nerves II-XII grossly intact, normal speech, moves all 4 extremities on command w/o issue. Differential diagnoses: Reactive airway disease, pneumonia, pneumothorax, COPD, CHF, infections, cardiac ischemia, pulmonary embolism, musculoskeletal, gastrointestinal, as well as other pathologies. Course: Patient was seen and evaluated the bedside. Full history physical exam was per formed. [EKG interpreted by me] Daja hernández, rate of 119, normal QRS duration, normal axis, PVCs noted. T wave inversion laterally. Imaging Studies: See Below [Cardiac monitoring: An order was placed for continuous cardiac monitoring. The monitor shows a rate of 112 with irregularly irregular rhythm.] MDM: Patient did have blood work completed along with a chest x-ray. Chest x-ray did show edema versus interstitial pneumonitis. Given the patient's cough and lack of volume intake believe infectious etiology be more likely. Patient does not appear volume overloaded. Patient does have a normal white count H&H and platelet count. Kidney function is grossly unremarkable. Mild elevation in bilirubin. The patient did not have any right upper quadrant pain. Patient's troponin is positive. It has been positive in the past but given the patient's infectious symptoms rapid heart rate and increasing troponin believe the patient may benefit from inpatient treatment and observation. I did speak with the on- call hospitalist Dr. Zhang, and the patient was admitted to the medicine service. Covid negative. 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) Vitamin D deficiency Surgical History Hx of tonsillectomy Family History Father Coronary heart disease Hypertension Mother Hypertension Brother Hypertension Social History Smoking Status: Never smoker Second Hand Exposure: No; Hx Alcohol Use: No Hx Substance Use: No Preferred Language: Comoran Communication Ability: Impaired Communication Tools: IPad Corridor Redevelopment Manager Required: No Beliefs That Will Affect Care: None marital status: Current Living Situation: Spouse current occupational status: disabled Feels Safe at Home: Yes Seatbelt Use: always Assistive Devices: None Allergies Allergies Allergy/AdvReac Type Severity Reaction Status Date / Time No Known Allergies Allergy Mild Verified 11/11/20 14:31 Home Meds Home Medications Medication Instructions Recorded Confirmed rivaroxaban 20 mg tablet 20 mg PO QAM 03/28/20 11/11/20 furosemide 40 mg tablet 40 mg PO QAM PRN 11/11/20 11/11/20 metoprolol succinate 50 mg 50 mg PO QAM 11/11/20 11/11/20 tablet,extended release 24 hr pantoprazole 40 mg tablet,delayed 40 mg PO QAM 11/11/20 11/11/20 release Previous Rx's Medication Instructions Recorded hydrocortisone 2.5 % topical cream 1 applic MS DAILY PRN #30 g 07/03/20 with perineal applicator (Anusol-HC) nitroglycerin 0.4 mg sublingual 0.4 mg SL Q5M PRN #30 tab 07/03/20 tablet sacubitril 24 mg-valsartan 26 mg 1 tab PO BID #60 tab 09/26/20 tablet (Entresto) Results & Data (ED) Vital Signs Vital Signs - 24 hr 11/11/20 11:47 11/11/20 12:50 11/11/20 13:00 Temperature 37 C Temperature Source Temporal Artery Scan Pulse Rate 104 H 108 H 113 H Pulse Rate from SpO2 Sensor 96 H Respiratory Rate 18 22 20 Respiratory Effort / Characteristics Non-Labored Respiratory Depth Normal Blood Pressure 153/94 H 122/83 Blood Pressure Mean 113 96 Pulse Oximetry 95 94 Oxygen Delivery Method Room Air Sepsis Recent Fever Within 48 Hours Yes Sepsis New/Unexplained Change in Mental Status No Sepsis Action Taken by Nursing No Action Required 11/11/20 13:30 11/11/20 13:45 11/11/20 14:00 Temperature Temperature Source Pulse Rate 97 H 107 H Pulse Rate from SpO2 Sensor 90 89 Respiratory Rate 21 26 H Respiratory Effort / Characteristics Respiratory Depth Blood Pressure 132/85 128/93 Blood Pressure Mean 100 104 Pulse Oximetry 95 97 95 Oxygen Delivery Method Room Air Sepsis Recent Fever Within 48 Hours Sepsis New/Unexplained Change in Mental Status Sepsis Action Taken by Nursing 11/11/20 14:30 11/11/20 15:01 11/11/20 15:30 Temperature Temperature Source Pulse Rate 111 H 118 H 105 H Pulse Rate from SpO2 Sensor 82 115 H 99 H Respiratory Rate 22 21 22 Respiratory Effort / Characteristics Respiratory Depth Blood Pressure 130/97 134/85 138/83 Blood Pressure Mean 108 101 101 Pulse Oximetry 95 95 93 Oxygen Delivery Method Sepsis Recent Fever Within 48 Hours Sepsis New/Unexplained Change in Mental Status Sepsis Action Taken by Nursing 11/11/20 16:01 11/11/20 16:31 11/11/20 17:00 Temperature Temperature Source Pulse Rate 112 H 104 H 99 H Pulse Rate from SpO2 Sensor 87 91 H Respiratory Rate 19 21 18 Respiratory Effort / Characteristics Respiratory Depth Blood Pressure 140/95 133/95 137/86 Blood Pressure Mean 110 107 103 Pulse Oximetry 94 91 Oxygen Delivery Method Sepsis Recent Fever Within 48 Hours Sepsis New/Unexplained Change in Mental Status Sepsis Action Taken by Nursing 11/11/20 17:30 11/11/20 18:00 11/11/20 18:31 Temperature Temperature Source Pulse Rate 114 H 103 H 98 H Pulse Rate from SpO2 Sensor 90 99 H 98 H Respiratory Rate 16 18 22 Respiratory Effort / Characteristics Respiratory Depth Blood Pressure 130/77 122/84 139/88 Blood Pressure Mean 94 96 105 Pulse Oximetry 94 94 93 Oxygen Delivery Method Sepsis Recent Fever Within 48 Hours Sepsis New/Unexplained Change in Mental Status Sepsis Action Taken by Alf Medications Current Medication List: was personally reviewed by me Laboratory Data Attestation: I reviewed the patient's lab results. Result diagrams: 11/11/20 12:55 11/11/20 12:55 Lab Results 11/11/20 11/11/20 11/11/20 Range/Units 12:55 12:55 13:53 WBC 7.56 (4.8-10.8) K/uL RBC 5.12 (4.7-6.1) M/uL Hgb 15.7 (14.0-18.0) g/dL Hct 46.9 (42-52) % MCV 91.6 (80-100) fL MCH 30.7 (25-34) pg MCHC 33.5 (32-36) g/dL RDW Std Deviation 49.5 H (36.4-46.3) fL RDW Coeff of Rachana 14.6 H (11.5-14.5) % Plt Count 196 (130-400) K/uL MPV 11.7 H (7.4-10.4) fL Immature Gran % (Auto) 0.1 % Neut % (Auto) 67.4 % Lymph % (Auto) 17.1 % [place] % (Auto) 13.5 % Eos % (Auto) 1.6 % Baso % (Auto) 0.3 % Neut # (Auto) 5.10 (1.4-6.5) K/uL Lymph # (Auto) 1.29 (1.2-3.4) K/uL [place] # (Auto) 1.02 H (0.11-0.59) K/uL Eos # (Auto) 0.12 (0-0.5) K/uL Baso # (Auto) 0.02 (0-0.2) K/uL Immature Gran # (Auto) 0.01 (0.00-0.02) K/uL Sodium 139 (136-145) mmol/L Potassium 3.8 (3.5-5.1) mmol/L Chloride 111 H (98-107) mmol/L Carbon Dioxide 26 (21-32) mmol/L Anion Gap 2.0 L (3-11) BUN 14 (7-18) mg/dl Creatinine 0.86 (0.6-1.4) mg/dl Est Cr Clr Drug Dosing 119.2 ml/min Est GFR ( Amer) 110.0 ml/min Est GFR (Non-Af Amer) 94.9 ml/min BUN/Creatinine Ratio 16.6 (10-20) Glucose 99 (70-99) mg/dl Calcium 8.8 (8.5-10.1) mg/dl Magnesium 2.1 (1.8-2.4) mg/dl Total Bilirubin 1.9 H (0.2-1) mg/dl AST 13 L (15-37) U/L ALT 39 (12-78) U/L Alkaline Phosphatase 107 (45-117) U/L Troponin I 0.252 H* (0-0.045) ng/ml Total Protein 7.2 (6.4-8.2) gm/dl Albumin 3.9 (3.4-5.0) gm/dl Globulin 3.3 (2.5-4.0) gm/dl Albumin/Globulin Ratio 1.2 (0.9-2) TSH 1.380 (0.300-4.500) uIu/ml COVID-19 Eval Order Covid19 at [facility] SARS-CoV-2 (PCR) (Negative) 11/11/20 Range/Units 13:53 WBC (4.8-10.8) K/uL RBC (4.7-6.1) M/uL Hgb (14.0-18.0) g/dL Hct (42-52) % MCV (80-100) fL MCH (25-34) pg MCHC (32-36) g/dL RDW Std Deviation (36.4-46.3) fL RDW Coeff of Rachana (11.5-14.5) % Plt Count (130-400) K/uL MPV (7.4-10.4) fL Immature Gran % (Auto) % Neut % (Auto) % Lymph % (Auto) % [place] % (Auto) % Eos % (Auto) % Baso % (Auto) % Neut # (Auto) (1.4-6.5) K/uL Lymph # (Auto) (1.2-3.4) K/uL [place] # (Auto) (0.11-0.59) K/uL Eos # (Auto) (0-0.5) K/uL Baso # (Auto) (0-0.2) K/uL Immature Gran # (Auto) (0.00-0.02) K/uL Sodium (136-145) mmol/L Potassium (3.5-5.1) mmol/L Chloride (98-107) mmol/L Carbon Dioxide (21-32) mmol/L Anion Gap (3-11) BUN (7-18) mg/dl Creatinine (0.6-1.4) mg/dl Est Cr Clr Drug Dosing ml/min Est GFR ( Amer) ml/min Est GFR (Non-Af Amer) ml/min BUN/Creatinine Ratio (10-20) Glucose (70-99) mg/dl Calcium (8.5-10.1) mg/dl Magnesium (1.8-2.4) mg/dl Total Bilirubin (0.2-1) mg/dl AST (15-37) U/L ALT (12-78) U/L Alkaline Phosphatase (45-117) U/L Troponin I (0-0.045) ng/ml Total Protein (6.4-8.2) gm/dl Albumin (3.4-5.0) gm/dl Globulin (2.5-4.0) gm/dl Albumin/Globulin Ratio (0.9-2) TSH (0.300-4.500) uIu/ml COVID-19 Eval Order SARS-CoV-2 (PCR) NEGATIVE (Negative) Administered Medications Discontinued Medications Acetaminophen (Acetaminophen 500 Mg Tab) 1,000 mg PO NOW STA Stop: 11/11/20 13:20 Last Admin: 11/11/20 13:51 Dose: 1,000 mg Documented by: [id number] Aspirin (Aspirin 81 Mg Ectab) 81 mg PO NOW STA Stop: 11/11/20 15:39 Last Admin: 11/11/20 15:45 Dose: 81 mg Documented by: [id number] Sodium Chloride (Nss 1000ml) 1,000 mls @ 999 mls/hr IV .Q1H1M ASHLEY Stop: 11/11/20 14:30 Last Infusion: 11/11/20 18:53 Dose: 0 mls/hr Documented by: [id number] Admin: 11/11/20 13:51 Dose: 999 mls/hr Documented by: [id number] Sodium Chloride (Nss 1000ml) 1,000 mls @ 999 mls/hr IV .Q1H1M ONE Stop: 11/11/20 14:19 Last Infusion: 11/11/20 15:33 Dose: 0 mls/hr Documented by: [id number] Admin: 11/11/20 13:51 Dose: 999 mls/hr Documented by: [id number] Ondansetron HCl (Ondansetron Inj 2 Mg/Ml 2 Ml Vial) 4 mg IV NOW STA Stop: 11/11/20 13:20 Last Admin: 11/11/20 13:51 Dose: 4 mg Documented by: [id number] Imaging Data Radiologist's Impression: Chest X-Ray 11/11/20 13:19 XR chest 1V portable HISTORY: 60 years-old Male weakness acute weakness COMPARISON: Chest radiograph 03/28/2020 TECHNIQUE: Portable AP view of the chest FINDINGS: The cardiac silhouette is enlarged, unchanged. Pulmonary vascular congestion. Mild bilateral reticular interstitial densities progressed from comparison. No pneumothorax, pleural effusion or lobar airspace consolidation. No acute fracture. IMPRESSION: Cardiomegaly with pulmonary vascular congestion. Mild coarsening of the interstitium is new from comparison and may represent mild pulmonary edema versus interstitial pneumonitis. ACT 112: Negative or not required by law. The above report was generated using voice recognition software. It may contain grammatical, syntax or spelling errors. Electronically signed by: Jamarcus Lorenzo M.D. 11/11/2020 1:54 PM Discharge Plan Visit Data Chief Complaint: Cough Stated Complaint: COUGH,FEVER,SOB ED Provider: Rogelio Gomez Discharge Problem: Pneumonitis, Cough, Elevated troponin I level, Dehydration Patient Disposition: Admitted As Inpatient Forms Stand Alone Forms: [facility] Prescriptions Prescriptions: No Action Entresto 24-26 mg tablet 1 tab PO BID Qty: 60 RF: 2 hydrocortisone [Anusol-HC] 2.5 % cream with perineal applicator 1 applic MS DAILY PRN (Reason: hemorrhoids) Qty: 30 RF: 0 nitroglycerin 0.4 mg tablet, sublingual 0.4 mg SL Q5M PRN (Reason: chest pain) Qty: 30 RF: 0 rivaroxaban 20 mg tablet 20 mg PO QAM RF: 0 furosemide 40 mg tablet 40 mg PO QAM PRN (Reason: swelling) RF: 0 metoprolol succinate 50 mg tablet extended release 24 hr 50 mg PO QAM RF: 0 pantoprazole 40 mg tablet,delayed release (DR/EC) 40 mg PO QAM RF: 0 Referrals Referrals: Rosalind Motley MD [Primary Care Provider] -
[2020-11-11] MEDS ORDERED: SODIUM CHLORIDE 0.9% 1000ML 1,000 ML IV ONE (13:19)
[2020-11-11] MEDS ORDERED: ACETAMINOPHEN 500 MG TAB PO STA (13:19)
[2020-11-11] MEDS ORDERED: ONDANSETRON INJ 2 MG/ML 2 ML VIAL IV STA (13:19)
[2020-11-11 13:29] LABS: Basophils # (auto) 0.02 K/uL (0-0.2); Basophils % (auto) 0.3 %; Eosinophils # (auto) 0.12 K/uL (0-0.5); Eosinophils % (auto) 1.6 %; Hematocrit (blood only) 46.9 % (42-52); Hemoglobin 15.7 g/dL (14.0-18.0); Immature Granulocytes # (auto) 0.01 K/uL (0.00-0.02); Immature Granulocytes % (auto) 0.1 %; Lymphocytes # (auto) 1.29 K/uL (1.2-3.4); Lymphocytes % (auto) 17.1 %; Mean Corpuscular Hemoglobin 30.7 pg (25-34); Mean Corpuscular Hgb Conc 33.5 g/dL (32-36); Mean Corpuscular Volume 91.6 fL (80-100); Mean Platelet Volume 11.7 fL (7.4-10.4); Monocytes # (auto) 1.02 K/uL (0.11-0.59); Monocytes % (auto) 13.5 %; Neutrophils % (auto) 67.4 %; Platelet Count 196 K/uL (130-400); RDW Coefficient of Variation 14.6 % (11.5-14.5); RDW Standard Deviation 49.5 fL (36.4-46.3); Red Blood Count 5.12 M/uL (4.7-6.1); White Blood Count 7.56 K/uL (4.8-10.8)
[2020-11-11] MEDS ORDERED: SODIUM CHLORIDE 0.9% 1000ML 1,000 ML IV SCH (13:30)
[2020-11-11 13:36] LABS: Albumin Level 3.9 gm/dl (3.4-5.0); BUN Creatinine Ratio 16.6 (10-20); Calcium 8.8 mg/dl (8.5-10.1); Creatinine Clr Calc Pharmacy 119.2 ml/min; Est GFR (Non-African American) 94.9 ml/min; Magnesium 2.1 mg/dl (1.8-2.4); Potassium 3.8 mmol/L (3.5-5.1)
[2020-11-11 13:51] LABS: Albumin Globulin Ratio 1.2 (0.9-2); Bilirubin,Total 1.9 mg/dl (0.2-1); Globulin 3.3 gm/dl (2.5-4.0); Thyroid Stimulating Hormone 1.38 uIu/ml (0.300-4.500); Total Protein 7.2 gm/dl (6.4-8.2); Troponin I 0.252 ng/ml (0-0.045)
--- NOTE | 2020-11-11 13:56 | XRay Report ---
XR chest 1V portable HISTORY: 60 years-old Male weakness acute weakness COMPARISON: Chest radiograph 03/28/2020 TECHNIQUE: Portable AP view of the chest FINDINGS: The cardiac silhouette is enlarged, unchanged. Pulmonary vascular congestion. Mild bilateral reticula r interstitial densities progressed from comparison. No pneumothorax, pleural effusion or lobar airsp timothy consolidation. No acute fracture. IMPRESSION: Cardiomegaly with pulmonary vascular congestion. Mild coarsening of the interstitium is n ew from comparison and may represent mild pulmonary edema versus interstitial pneumonitis. ACT 112: Negative or not required by law. The above report was generated using voice recognition software. It may contain grammatical, syntax o r spelling errors. Electronically signed by: Jamarcus Lorenzo M.D. 11/11/2020 1:54 PM
--- NOTE | 2020-11-11 14:45 | History & Physical Report ---
Date of Service November 11, 2020 Assessment & Plan (1) Nonischemic cardiomyopathy: Plan: pt presents in acute on chronic heart failure reduced injection fraction, has a previous workup with diagnosis of non ischemic cardiomyopathy, suggested to be from tachyarrythmia, with post afib and nsvt in his records, has refused life vest and defibrillator in the past. started on entresto this spring will continue rate control with metoprolol and given dose of lasix iv in ER to improve symptoms reportedly did stop entresto that was started by DR Whaley this spring If atrial fibrillation or HF is difficult to manage consider consult cardiology for co management typically sees Dr Whaley (2) Cough: Plan: Patient presents with high temperature at home 39 C and a productive cough of yellow-green mucus. He does not have a lobar pneumonia seen on chest x-ray. Denies ill contacts. Has not had travel out of the area and no one else at home is sick. Patient did have a hacking cough during my visit he will be started on azithromycin for a atypical infection as could be explained by the bilateral changes seen on chest x-ray urine Legionella antigen is sent and procalcitonin is sent. We will get a two-view chest x-ray in the morning and escalate antibiotics if it looks to be progression to lobar pneumonia. Another consideration would be to do a bio fire as the patient has persistent fevers while on antibiotics (3) Permanent atrial fibrillation: Plan: usually is rate controlled by metoprolol succinate 50 and anticoagulated with xarelto, although the pt may not take xarelto daily. had been on higher doses of metoprolol in the past ( 100 bid) (4) Chronic systolic (congestive) heart failure: Plan: last echo in record 02/08 with EF 25-30%, repeat echo this stay we will not give additional diuresis at this time as symptoms seem to be most consistent with infectious etiology given fever (5) Elevated troponin: Plan: Pt has a history of elevated troponin, will trend, diagnosed with type II OR 02/08, reportedly had Left heart cath in [place] near same time course with non occlusive disease Will be on low-dose aspirin in addition to metoprolol. Low-dose aspirin chosen given concurrent use of Xarelto (6) HTN (hypertension): Plan: Lisinopril metoprolol (7) BPH (benign prostatic hyperplasia): Plan: on tamsulosin and rapaflo in the past , currently without symptoms at this time (8) DVT prophylaxis: Plan: xarelto for dvt prevention History of Present Illness Primary Care Provider: Rosalind Motley MD 60-year-old male with a history of nonischemic cardiomyopathy he has a history of permanent atrial fibrillation and presents with rapid ventricular rate. Patient has previously noted to be free of atrial fibrillation for some time but occasionally does intermittently dose or not doses home medications. He however at this time states has been taking his medications. Patiently is noted to have Covid pneumonia in February 2020 Patient's biggest complaint is really having a fever at home and having a productive cough of yellow-green mucus. He does not have a lobar infiltrate seen on chest x-ray in fact the chest x-ray looks more like interstitial infiltrates.. This may be atypical pneumonia. The patient will be treated with azithromycin pending Legionella antigen. Consideration for bio fire will be after procalcitonin is resulted. Likely his atrial fibrillation is from physiological stressor of infection. If need be cardiology consultation undertaken however he is continued on his metoprolol and Xarelto. Given the mild elevation of troponin which is typically chronic for him he will be given low-dose aspirin and his troponins will be trended as well as an echocardiogram ordered for the morning Allergies Allergy/AdvReac Type Severity Reaction Status Date / Time No Known Allergies Allergy Mild Verified 11/11/20 14:31 Home Medications Medication Instructions Recorded Confirmed Type rivaroxaban 20 mg tablet 20 mg PO QAM 03/28/20 11/11/20 History hydrocortisone 2.5 % topical cream 1 applic MI DAILY PRN #30 g 07/03/20 11/11/20 Rx with perineal applicator (Anusol-HC) nitroglycerin 0.4 mg sublingual 0.4 mg SL Q5M PRN #30 tab 07/03/20 11/11/20 Rx tablet sacubitril 24 mg-valsartan 26 mg 1 tab PO BID #60 tab 09/26/20 11/11/20 Rx tablet (Entresto) furosemide 40 mg tablet 40 mg PO QAM PRN 11/11/20 11/11/20 History metoprolol succinate 50 mg 50 mg PO QAM 11/11/20 11/11/20 History tablet,extended release 24 hr pantoprazole 40 mg tablet,delayed 40 mg PO QAM 11/11/20 11/11/20 History release Past Med/Surg History Medical History Acid reflux disease Arm fracture, left (2019) Chronic systolic (congestive) heart failure Compression fracture of L1 lumbar vertebra (2019) Dermatitis Dyslipidemia Fall from ladder (2019) HTN (hypertension) Nonsustained ventricular tachycardia Normal coronary arteries (2019) NSTEMI (non-ST elevated myocardial infarction) (2019) Osteoporosis Permanent atrial fibrillation Pneumonia due to COVID-19 virus 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) Vitamin D deficiency Surgical History Hx of tonsillectomy Family History Father Coronary heart disease Hypertension Mother Hypertension Brother Hypertension Social History Smoking Status: Never smoker Second Hand Exposure: No; Hx Alcohol Use: No Hx Substance Use: No Preferred Language: [place]ian Communication Ability: Impaired Communication Tools: IPad Explosive Ordnance Manager Required: No Beliefs That Will Affect Care: None marital status: Current Living Situation: Spouse current occupational status: disabled Feels Safe at Home: Yes Seatbelt Use: always Assistive Devices: None Review of Systems Review of Systems: Mild distress and fatigue coarse coughing during exam no headache, no visual changes no speech or swallowing issues no chest pain, pressure or palpitations no shortness of breath, productive cough sounds wet during examination no abdominal pain, nausea or vomiting, diarrhea or constipation no dysuria, hematuria or frequency no focal joint pain does of mild peripheral edema no back pain, CVA tenderness or radicular pain no bruising, bleeding or rashes no focal signs of weakness or numbness or altered sensation no complaints of anxiety or depression.. Physical Exam Physical Exam: The patient appeared well nourished and normally developed. Vital signs as documented. Head exam is normocephalic atraumatic oropharynx is without posterior exudates only mild posterior erythema Neck is without significant JVD, thyromegaly, or carotid bruits. Lungs are coarse rhonchi heard at bases bilaterally no defined fine or coarse rales heard Cardiac exam, irregularly irregular and tachycardic Abdominal exam reveals normal bowel sounds, soft non tender, no masses Extremities are trace bilateral edematous and both pedal pulses are present Neurologic exam is alert and oriented, no focal loss of strength or sensation Skin is without bruises or rashes Psychologically is without concerns for anxiety or depression Results & Data Results & Data ([facility]) Vital Signs (Past 12 Hours) Vital Signs Temp Pulse Resp BP Pulse Ox 11/11/20 14:00 107 H 26 H 128/93 95 11/11/20 13:45 97 11/11/20 13:30 97 H 21 132/85 95 11/11/20 13:00 113 H 20 122/83 94 11/11/20 12:50 108 H 22 11/11/20 11:47 98.6 F 104 H 18 153/94 H 95 PG Care Time/CCT Total # of Minutes Spent Total Time Spent with Patient: Total time spent is greater than 50% in coordination of care (as documented) at patient's floor/unit and/or counseling patient: Coding Level of Care Code 37105 Initial Inpt Care Lvl 3 Diagnoses Nonischemic cardiomyopathy I42.8 Permanent atrial fibrillation I48.21 HTN (hypertension) I10 Hypertension type: unspecified Chronic systolic (congestive) heart failure I50.22 Elevated troponin R77.8 BPH (benign prostatic hyperplasia) N40.0 DVT prophylaxis Z29.9 Cough R05 (1) HTN (hypertension) Hypertension type: unspecified Qualified Code(s): I10 - Essential (primary) hypertension
[2020-11-11] MEDS ORDERED: ASPIRIN 81 MG ECTAB PO STA (15:38)
--- NOTE | 2020-11-11 17:03 | Electrocardiogram Report ---
Test Reason : Blood Pressure : / mmHG Vent. Rate : 119 BPM Atrial Rate : 117 BPM P-R Int : 000 ms QRS Dur : 100 ms QT Int : 336 ms P-R-T Axes : 000 -12 166 degrees QTc Int : 472 ms Atrial fibrillation with rapid ventricular response with premature ventricular or aberrantly conducte d complexes Left ventricular hypertrophy with QRS widening and repolarization abnormality Abnormal ECG When compared with ECG of 28-MAR-2020 12:09, HR has increased by 12 bpm Otherwise no significant change Confirmed by Flynn Jc ([id number]) on 11/11/2020 5:03:12 PM Referred By: REFERRED SELF Confirmed By:Flynn Jc
[2020-11-11] MEDS ORDERED: ALUMINUM/MAGNESIUM SUSP 30 ML UDC PO PRN (20:51)
[2020-11-11] MEDS ORDERED: NITROGLYCERIN SL 0.4 MG/TAB TAB SL PRN (20:51)
[2020-11-11] MEDS ORDERED: METOPROLOL TARTRATE 1 MG/ML VIAL IV PRN (20:51)
[2020-11-11] MEDS ORDERED: SACUBITRIL-VALSARTAN 24-26 MG TAB PO SCH ×2 (21:00)
[2020-11-11] MEDS ORDERED: AZITHROMYCIN 500 MG in DEXTROSE 5% 250 ML IV SCH (22:00)
[2020-11-11] MEDS: ACETAMINOPHEN 325 MG TAB PO PRN (23:40)
[2020-11-12] MEDS: MELATONIN 3 MG TAB PO PRN ×2 (00:30→23:53)
[2020-11-12 07:30] LABS: Calcium 8.6 mg/dl (8.5-10.1); Creatinine Clr Calc Pharmacy 92.4 ml/min; Est GFR (African American) 103.8 ml/min; Est GFR (Non-African American) 89.5 ml/min; Magnesium 1.8 mg/dl (1.8-2.4); Potassium 3.9 mmol/L (3.5-5.1)
[2020-11-12 07:42] LABS: Troponin I 0.233 ng/ml (0-0.045)
[2020-11-12] MEDS: lisinopril 5 MG TAB PO SCH (08:16)
[2020-11-12] MEDS: ASPIRIN 81 MG ECTAB PO SCH (08:16)
[2020-11-12] MEDS: PANTOprazole 40 MG TAB PO SCH (08:16)
[2020-11-12] MEDS: RIVAROXABAN 20 MG TAB PO SCH (08:17)
--- NOTE | 2020-11-12 08:19 | Electrocardiogram Report ---
Test Reason : Blood Pressure : / mmHG Vent. Rate : 109 BPM Atrial Rate : 107 BPM P-R Int : 000 ms QRS Dur : 098 ms QT Int : 336 ms P-R-T Axes : 000 000 121 degrees QTc Int : 452 ms Atrial fibrillation with rapid ventricular response Left ventricular hypertrophy with QRS widening and repolarization abnormality Abnormal ECG When compared with ECG of 11-NOV-2020 12:44, No significant change Confirmed by Flynn Jc ([id number]) on 11/12/2020 8:18:34 AM Referred By: REFERRED SELF Confirmed By:Flynn Jc
[2020-11-12] MEDS: ACETAMINOPHEN 325 MG TAB PO PRN ×2 (08:24→14:24)
[2020-11-12] MEDS ORDERED: METOPROLOL SUCC 50MG EXT REL TAB PO SCH (09:00)
--- NOTE | 2020-11-12 09:21 | XRay Report ---
XR chest 2V PA/lateral HISTORY: 60 years-old Male eval for lobar pneumonia acute shortness of breath COMPARISON: Chest radiograph 11/11/2020 TECHNIQUE: PA and lateral views of the chest FINDINGS: Cardiac silhouette is enlarged. No pneumothorax, large pleural effusion or overt pulmonary edema. Unc hanged decreased interstitial coarsening. Mild blunting of the costophrenic angles. Mild linear atele ctasis of the lateral left midlung. Degenerative changes of the shoulders and spine. Chronic L1 compr ession deformity. IMPRESSION: 1. Cardiomegaly without overt pulmonary edema. 2. Mild linear atelectasis of the left midlung. ACT 112: Negative or not required by law. The above report was generated using voice recognition software. It may contain grammatical, syntax o r spelling errors. Electronically signed by: Jamarcus Lorenzo M.D. 11/12/2020 9:20 AM
--- NOTE | 2020-11-12 09:31 | XCELERA ---
[id number]
[2020-11-12] MEDS ORDERED: METOPROLOL TARTRATE 50 MG TAB PO STA (10:48)
[2020-11-12 11:36] LABS: Adenovirus PCR Not Detected (NotDetected); Bordetella parapertussis PCR Not Detected (NotDetected); Bordetella pertussis PCR Not Detected (NotDetected); Chlamydia pneumoniae PCR Not Detected (NotDetected); Coronavirus 229E PCR Not Detected (NotDetected); Coronavirus CoV-2 (COVID19)PCR Not Detected (NotDetected); Coronavirus HKU1 PCR Not Detected (NotDetected); Coronavirus NL63 PCR Not Detected (NotDetected); Coronavirus OC43PCR Not Detected (NotDetected); Human Metapneumovirus PCR Not Detected (NotDetected); Influenza A PCR Not Detected (NotDetected); Influenza B PCR Not Detected (NotDetected); Mycoplasma pneumoniae PCR Not Detected (NotDetected); Parainfluenza Virus 1 PCR Not Detected (NotDetected); Parainfluenza Virus 2 PCR Not Detected (NotDetected); Parainfluenza Virus 3 PCR Not Detected (NotDetected); Parainfluenza Virus 4 PCR Not Detected (NotDetected); Rhinovirus/Enterovirus PCR Not Detected (NotDetected)
[2020-11-12 11:38] LABS: Respiratory Syncytial VirusPCR DETECTED (NotDetected)
--- NOTE | 2020-11-12 16:20 | Hospitalist Progress Note ---
Date of Service November 12, 2020 Assessment & Plan (1) RSV (respiratory syncytial virus pneumonia): Plan: RSV pneumonitis is the main cause of his presentation and current illness. BioFire + for RSV. COVID negative x 2. His cxr remains stable today. Via the [place] leather stripping machine operator I discussed at length what RSV is, what treatments are available for it, how long he might be ill from this, etc. Because he is immunocompromised (severe CHF/cardiomyopathy) will place on contact precautions per infection control recommendations. Plan - * d/c antibiotics; no evidence of complicating bacterial process (stable cxr, negative procalcitonin, etc) * prednisone 60mg x 1 now, then steroid taper * tessalon 100mg TID * combivent 1 puff QID * mucinex 1200mg BID * tylenol for fever/discomfort He may have element of pulmonary edema contributing to his pulmonary symptoms - lasix 20mg IV x 1. Re-eval in am. (2) Acute on chronic systolic heart failure: Plan: Echo today with EF 20-25%. Likely tachy-arrhythmia induced. Will ask Dr Jc, his hospital admissions officer, to consult tomorrow. May have element of decompensation - lasix 20mg IV x 1. Decompensation likely combination of #3 and #1. Can't exclude noncompliance with CHF medications. Increase metoprolol succinate to 50mg BID. Cont JOHAN. Re-eval for ongoing diuretics in the am. BMP am. (3) Rapid atrial fibrillation: Plan: A.fib is chronic/permanent. Has poor rate control. H/o noncompliance in the past with medication regimen. Increase metoprolol succinate to 50mg BID. Re-eval in am. Continue xarelto. (4) Elevated troponin I level: Plan: Likely myocardial demand ischemia in the setting of #1, #2, and #3. No evidence of ACS. Patient, by report, had negative cardiac cath in the past for CAD. (5) BPH (benign prostatic hyperplasia): Plan: Not on meds for such. (6) Nonischemic cardiomyopathy: Plan: Echo today with EF 20-25%. Cont BB. Cont JOHAN. Lasix x 1 today. Cardiomyopathy thought to be 2nd to tachy-arrhythmia (uncontrolled a.fib). Formal consult placed to Dr Jc. (7) Nonsustained ventricular tachycardia: Plan: As seen on tele. 2nd to severe cardiomyopathy. He is a candidate for ICD placement given his severe CHF/depressed EF. He has refused implantation of pacemaker in the past, however, and he may not want to pursue ICD either. Keep mag near 2. Keep K near 4. (8) HTN (hypertension): Plan: uncontrolled. Increase metoprolol succinate to 50mg BID. (9) Moderate to severe mitral regurgitation: Plan: Noted on echo today. (10) DVT prophylaxis: Plan: xarelto 20mg daily. Admission and Anticipated Discharge Date Admission Date: November 11, 2020 Subjective overnight - tele with rapid a.fib, nearly all rates >100 several brief runs of NSVT I interviewed the patient with the assistance of a [place] leather stripping machine operator via iPad the interview was at least 30-35 minutes today - patient with fever, sweats, feeling very poorly, and eating poorly he c/o cough productive of sputum and wheezing several times during the interview he asked for "IV glucose" I told him that he has RSV and that antibiotics will not help RSV we discussed symptomatic care of the RSV discussed natural course of RSV, how long he might be sick from such, etc he told me via the leather stripping machine operator that he has been compliant with his medications at home he asked multiple questions about his a.fib and CHF Review of Systems Review of Systems: ROS gained via assistance of the leather stripping machine operator - gen - fevers, chills, sweats, feeling poorly, fatigue, lack of appetite CV - no chest pain Pulm - cough, dyspnea, wheezing, sputum production GI - no nausea or emesis Physical Exam Physical Exam: gen - looks sickly but nontoxic, coughing, mild tachypnea when he moves around neck - mild JVD mouth - MMM skin - no rash heart - tachy, s1 s2, irregularly irregular, 2/6 systolic murmur LSB lungs - diffuse wheezing all lung segments, mild tachypnea when he moves in the bed but none at rest, no rales abd - soft NT ND BS+ ext - trace edema b/l, pulses 2+ b/l psych - a/o x 3 Results & Data Results & Data ([facility]) Vital Signs (Past 12 Hours) Vital Signs Temp Pulse Pulse Pulse Resp BP Pulse Ox 11/12/20 15:10 36.8 C 84 16 129/87 94 09/22/21 14:24 37.8 C H 09/22/21 11:04 37.1 C 92 H 22 120/78 91 11/12/20 08:00 37.7 C H 120 H 105 H 22 153/97 H 92 Laboratory Results Laboratory Results - last 24 hr 11/11/20 11/11/20 11/12/20 12:55 21:13 05:55 Sodium Potassium Chloride Carbon Dioxide Anion Gap BUN Creatinine Est Cr Clr Drug Dosing Est GFR ( Amer) Est GFR (Non-Af Amer) BUN/Creatinine Ratio Glucose Calcium Magnesium Troponin I 0.241 H* Procalcitonin < 0.05 Adenovirus (PCR) B. pertussis DNA (PCR) B.parapertussis DNA PCR C. pneumoniae DNA (PCR) Coronavirus OC43 (PCR) Coronavirus HKU1 (PCR) Coronavirus 229E (PCR) COVID-19 Eval Order SARS-CoV-2 (PCR) Coronavirus NL63 (PCR) Human Metapneumovir PCR Influenza Type A (PCR) Influenza Type B (PCR) Urine Legionella Ag Pending M. pneumoniae (PCR) Parainfluenza 1 (PCR) Parainfluenza 2 (PCR) Parainfluenza 3 (PCR) Parainfluenza 4 (PCR) RSV (PCR) Entero/Rhino (PCR) 11/12/20 11/12/20 11/12/20 06:03 08:50 08:50 Sodium 139 Potassium 3.9 Chloride 109 H Carbon Dioxide 26 Anion Gap 4.0 BUN 19 H Creatinine 0.93 Est Cr Clr Drug Dosing 92.4 Est GFR ( Amer) 103.8 Est GFR (Non-Af Amer) 89.5 BUN/Creatinine Ratio 20.0 Glucose 99 Calcium 8.6 Magnesium 1.8 Troponin I 0.233 H* Procalcitonin Adenovirus (PCR) Not Detected B. pertussis DNA (PCR) Not Detected B.parapertussis DNA PCR Not Detected C. pneumoniae DNA (PCR) Not Detected Coronavirus OC43 (PCR) Not Detected Coronavirus HKU1 (PCR) Not Detected Coronavirus 229E (PCR) Not Detected COVID-19 Eval Order [facility]NP at [facility] SARS-CoV-2 (PCR) Not Detected Coronavirus NL63 (PCR) Not Detected Human Metapneumovir PCR Not Detected Influenza Type A (PCR) Not Detected Influenza Type B (PCR) Not Detected Urine Legionella Ag M. pneumoniae (PCR) Not Detected Parainfluenza 1 (PCR) Not Detected Parainfluenza 2 (PCR) Not Detected Parainfluenza 3 (PCR) Not Detected Parainfluenza 4 (PCR) Not Detected RSV (PCR) DETECTED A* Entero/Rhino (PCR) Not Detected Diagnostic Findings Chest X-Ray 11/12/20 07:00 XR chest 2V PA/lateral HISTORY: 60 years-old Male eval for lobar pneumonia acute shortness of breath COMPARISON: Chest radiograph 11/11/2020 TECHNIQUE: PA and lateral views of the chest FINDINGS: Cardiac silhouette is enlarged. No pneumothorax, large pleural effusion or overt pulmonary edema. Unchanged decreased interstitial coarsening. Mild blunting of the costophrenic angles. Mild linear atelectasis of the lateral left midlung. Degenerative changes of the shoulders and spine. Chronic L1 compression deformity. IMPRESSION: 1. Cardiomegaly without overt pulmonary edema. 2. Mild linear atelectasis of the left midlung. ACT 112: Negative or not required by law. The above report was generated using voice recognition software. It may contain grammatical, syntax or spelling errors. Electronically signed by: Jamarcus Lorenzo M.D. 11/12/2020 9:20 AM PG Care Time/CCT Total # of Minutes Spent Total Time Spent with Patient: Total time spent is greater than 50% in coordi nation of care (as documented) at patient's floor/unit and/or counseling patient: Coding Level of Care Code 03311 Subseq Hosp Care Lvl 3 Diagnoses RSV (respiratory syncytial virus pneumonia) J12.1 Acute on chronic systolic heart failure I50.23 Rapid atrial fibrillation I48.91 Elevated troponin I level R77.8 BPH (benign prostatic hyperplasia) N40.0 Nonischemic cardiomyopathy I42.8 Nonsustained ventricular tachycardia I47.2 HTN (hypertension) I10 Hypertension type: unspecified Moderate to severe mitral regurgitation I34.0 DVT prophylaxis Z29.9 (1) HTN (hypertension) Hypertension type: unspecified Qualified Code(s): I10 - Essential (primary) hypertension
[2020-11-12] MEDS ORDERED: POTASSIUM CHLORIDE CRTAB 20 MEQ TABCR PO STA (16:22)
[2020-11-12] MEDS ORDERED: predniSONE 20 MG TAB PO ONE (16:45)
[2020-11-12] MEDS ORDERED: FUROSEMIDE 20 MG in SYRINGE 0 ML IV ONE (16:45)
[2020-11-12] MEDS ORDERED: MAGNESIUM SULFATE / D5W 1 GM/100 ML BAG IV ONE (16:45)
[2020-11-12] MEDS ORDERED: IPRATROPIUM BROMIDE/ALBUTEROL respimat INH INH SCH (17:00)
[2020-11-12] MEDS: BENZONATATE 100 MG CAPSULE PO SCH ×2 (17:28→20:34)
[2020-11-12] MEDS: IPRATROPIUM BROMIDE HFA INHALER INH SCH (20:01)
[2020-11-12] MEDS: ALBUTEROL HFA 8 GM INHALER INH SCH (20:01)
[2020-11-12] MEDS: guaiFENesin 600 MG TABCR PO SCH (20:34)
[2020-11-12] MEDS: MAGNESIUM OXIDE 400 MG TAB PO SCH (20:34)
[2020-11-12] MEDS ORDERED: METOPROLOL SUCC 50MG EXT REL TAB PO STA (21:08)
[2020-11-12] MEDS: ACETAMINOPHEN 500 MG TAB PO PRN (23:53)
[2020-11-13] MEDS: IPRATROPIUM BROMIDE HFA INHALER INH SCH (07:07)
[2020-11-13] MEDS: ALBUTEROL HFA 8 GM INHALER INH SCH (07:07)
[2020-11-13] MEDS: MAGNESIUM OXIDE 400 MG TAB PO SCH ×2 (08:30→20:47)
[2020-11-13] MEDS: guaiFENesin 600 MG TABCR PO SCH ×2 (08:30→20:48)
[2020-11-13] MEDS: METOPROLOL SUCC 50MG EXT REL TAB PO SCH ×2 (08:30→20:47)
[2020-11-13] MEDS: PANTOprazole 40 MG TAB PO SCH (08:31)
[2020-11-13] MEDS: lisinopril 5 MG TAB PO SCH (08:31)
[2020-11-13] MEDS: RIVAROXABAN 20 MG TAB PO SCH (08:31)
[2020-11-13] MEDS: ASPIRIN 81 MG ECTAB PO SCH (08:31)
[2020-11-13] MEDS: BENZONATATE 100 MG CAPSULE PO SCH ×3 (08:31→20:47)
[2020-11-13 09:15] LABS: BUN Creatinine Ratio 26.4 (10-20); Calcium 9.1 mg/dl (8.5-10.1); Creatinine Clr Calc Pharmacy 100.8 ml/min; Est GFR (African American) 110.5 ml/min; Est GFR (Non-African American) 95.4 ml/min; Magnesium 2.1 mg/dl (1.8-2.4)
[2020-11-13] MEDS ORDERED: ALBUTEROL HFA 8 GM INHALER INH PRN (09:48)
--- NOTE | 2020-11-13 10:28 | Electrocardiogram Report ---
Test Reason : Blood Pressure : / mmHG Vent. Rate : 099 BPM Atrial Rate : 107 BPM P-R Int : 000 ms QRS Dur : 114 ms QT Int : 374 ms P-R-T Axes : 000 -01 038 degrees QTc Int : 479 ms Atrial fibrillation Left ventricular hypertrophy with QRS widening and repolarization abnormality Prolonged QT Nonspecific T wave abnormality Anterior leads Abnormal ECG When compared with ECG of 12-NOV-2020 04:49, T wave inversion now evident in Anterior leads Confirmed by Flynn Jc ([id number]) on 11/13/2020 10:27:48 AM Referred By: REFERRED SELF Confirmed By:Flynn Jc
[2020-11-13] MEDS ORDERED: predniSONE 20 MG TAB PO STA (14:06)
[2020-11-13] MEDS ORDERED: FUROSEMIDE 20 MG in SYRINGE 0 ML IV ONE (14:15)
--- NOTE | 2020-11-13 16:12 | Cardiology Consultation ---
Date of Consultation November 13, 2020 Assessment & Plan (1) RSV (respiratory syncytial virus pneumonia): (2) Acute on chronic systolic heart failure: (3) Nonischemic cardiomyopathy: (4) Permanent atrial fibrillation: (5) Moderate to severe mitral regurgitation: (6) Elevated troponin: Patient with longstanding nonischemic cardiomyopathy from often poorly controlled ventricular response to his permanent atrial fibrillation (limited compliance with negative chronotropic medications) who presents with substantial bronchospasm and respiratory syncytial virus. No doubt his poor cardiac reserve contributes to his fatigue and dyspnea, but after initial diuresis here his weight is at baseline (same as June 2020 office visit), his neck veins are only minimally elevated, and his chest x-ray improved from 1 day to the next. He does not routinely take diuretics, but may benefit from PRN furosemide to keep output equal to input to avoid volume overload, particularly since he may be prone to volume retention on steroids. His ventricular rate is now well controlled with increase metoprolol dose (home dose 50 mg daily, current dose 50 mg twice daily), would continue this as outpatient but his compliance may be limited. Agree with afterload reduction with lisinopril, could possibly resume Entresto upon discharge. Important that he remain anticoagulated with rivaroxaban, since he had a splenic infarct in 2019. Mild troponin elevation is not concerning in that it is a flat curve, he had normal coronaries just 2 years ago, and this is almost certainly supply/demand mismatch with demand ischemia due to increased respiratory work. Once he is over his acute bronchospasm/pulmonary disease, would hope once again that he would consider placement of an ICD/pacemaker (possibly biventricular) in order to allow him to routinely take his negative chronotropic medications without causing excess bradycardia. However, I am not optimistic, and that I have not been able to convince him in over 20 years to do this. Will continue to follow with you. 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 Hospital course noted for persistent paroxysmal coughing, dyspnea, rapid ventricular response of his atrial fibrillation, and episodes of nonsustained ventricular tachycardia. Allergies Allergy/AdvReac Type Severity Reaction Status Date / Time No Known Allergies Allergy Mild Verified 11/11/20 14:31 Home Medications Medication Instructions Recorded Confirmed Type rivaroxaban 20 mg tablet 20 mg PO QAM 03/28/20 11/11/20 History hydrocortisone 2.5 % topical cream 1 applic GA DAILY PRN #30 g 07/03/20 11/11/20 Rx with perineal applicator (Anusol-HC) nitroglycerin 0.4 mg sublingual 0.4 mg SL Q5M PRN #30 tab 07/03/20 11/11/20 Rx tablet sacubitril 24 mg-valsartan 26 mg 1 tab PO BID #60 tab 09/26/20 11/11/20 Rx tablet (Entresto) furosemide 40 mg tablet 40 mg PO QAM PRN 11/11/20 11/11/20 History metoprolol succinate 50 mg 50 mg PO QAM 11/11/20 11/11/20 History tablet,extended release 24 hr pantoprazole 40 mg tablet,delayed 40 mg PO QAM 11/11/20 11/11/20 History release Patient History Medical History Acid reflux disease Arm fracture, left (2018) Chronic systolic (congestive) heart failure Compression fracture of L1 lumbar vertebra (2018) Dermatitis Dyslipidemia Fall from ladder (2018) HTN (hypertension) Nonsustained ventricular tachycardia Normal coronary arteries (2019) NSTEMI (non-ST elevated myocardial infarction) (2019) Osteoporosis Permanent atrial fibrillation Pneumonia due to COVID-19 virus 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) Vitamin D deficiency Surgical History Hx of tonsillectomy Family History Father Coronary heart disease Hypertension Mother Hypertension Brother Hypertension Social History Smoking Status: Never smoker Second Hand Exposure: No; Hx Alcohol Use: No Hx Substance Use: No Preferred Language: Citizen Of [place] Communication Ability: Effective Communication Tools: IPad Court Interpreter Required: No Beliefs That Will Affect Care: None marital status: Current Living Situation: Spouse Current Living Situation Comment: lives with current occupational status: disabled How many Children do You have: 4 Feels Safe at Home: Yes Seatbelt Use: always Assistive Devices: None Physical Exam Physical Exam: Normal habitus adult white male appears uncomfortable but not acutely distressed. Multiple proximal-isms of coughing during my visit. Tm 100.0 BP normotensive. Pulse 96 bpm and irregular. Skin: No ecchymoses or generalized lesions. HEENT: Unremarkable. Neck: jugular venous pulse just above the clavicle at 90, no carotid bruits. Lungs: Diffuse expiratory wheezing with mild accessory muscle use. No abdominal paradox, intercostal retraction, or nasal flaring. Cardiac: irregular tachycardic rhythm with 2/6 apical holosystolic murmur which is not radiating. Abdomen: Benign. Extremities: Brisk posterior tibial pulses bilaterally, good capillary refill, no pretibial edema. Neurologic: Normal affect and conversation, grossly nonfocal. Results & Data ([facility]) Vital Signs (Past 12 Hours) Vital Signs Temp Pulse Pulse Resp BP Pulse Ox 11/13/20 14:39 97.9 F 88 16 132/88 94 11/13/20 09:48 98.6 F 100 H 18 140/91 92 11/13/20 08:00 89 11/13/20 07:07 93 H 17 96 Laboratory Results Flat troponin curve (0.25, 0.24, 0.23). Normal CBC. Normal electrolytes, BUN 22, creatinine 0.85. Diagnostic Findings ECG on admission shows atrial fibrillation with rapid ventricular response, left ventricular emergency with QRS widening and repolarization abnormality and mildly prolonged QT interval. ECG today showed atrial fibrillation with controlled ventricular sponsor 99 bpm, LVH with QRS widening and repolarization abnormality, nonspecific T wave abnormality. Compared with yesterday, later anterior T wave inversion now seen. Chest x-ray on admission showed cardiomegaly with pulmonary vascular congestion versus interstitial pneumonitis. Repeat chest x-ray yesterday showed cardiomegaly without pulmonary edema, mild linear atelectasis mid left lung. Echocardiogram showed EF 20 to 25% with severe global hypokinesis and septal dyskinesis, moderate to severe mitral regurgitation with severely dilated left atrium, mild pulmonary hypertension. PG Care Time/CCT Total # of Minutes Spent Total Time Spent with Patient: Total time spent is greater than 50% in coordination of care (as documented) at patient's floor/unit and/or counseling patient: Coding Level of Care Code 80958 Inpt Consult Level 4 Diagnoses RSV (respiratory syncytial virus pneumonia) J12.1 Permanent atrial fibrillation I48.21 Moderate to severe mitral regurgitation I34.0 Nonischemic cardiomyopathy I42.8 Elevated troponin R77.8 Acute on chronic systolic heart failure I50.23
--- NOTE | 2020-11-13 21:44 | Hospitalist Progress Note ---
Date of Service November 13, 2020 Assessment & Plan (1) RSV (respiratory syncytial virus pneumonia): Plan: Ongoing. Minimal improvement. BioFire + for RSV. COVID negative x 2. Plan - * cont prednisone - 60mg again today, then 50mg tomorrow * tessalon 100mg TID * bronchodilators * mucinex 1200mg BID * tylenol for fever/discomfort He may have element of pulmonary edema contributing to his pulmonary symptoms - again lasix 20mg IV x 1 today. Re-eval in am. (2) Acute on chronic systolic heart failure: Plan: Echo with EF 20-25%. Likely tachy-arrhythmia induced. Appreciate Dr Jc's consultation. lasix 20mg IV x 1 again today; reeval tomorrow for ongoing diuresis. Decompensation likely combination of #3 and #1. Can't exclude noncompliance with CHF medications. Increased metoprolol succinate to 50mg BID. Cont JOHAN. BMP am. (3) Rapid atrial fibrillation: Plan: A.fib is chronic/permanent. Rates improved with increase in metoprolol to 50 BID. H/o noncompliance in the past with medication regimen. Continue xarelto. (4) Elevated troponin I level: Plan: Likely myocardial demand ischemia in the setting of #1, #2, and #3. No evidence of ACS. Patient, by report, had negative cardiac cath in the past for CAD. (5) BPH (benign prostatic hyperplasia): Plan: Not on meds for such. (6) Nonischemic cardiomyopathy: Plan: Echo this admission with EF 20-25%. Cont BB. Cont JOHAN. Lasix x 1 today. Cardiomyopathy thought to be 2nd to tachy-arrhythmia (uncontrolled a.fib). Formal consult placed to Dr Jc. (7) Nonsustained ventricular tachycardia: Plan: As seen on tele. 2nd to severe cardiomyopathy. He is a candidate for ICD placement given his severe CHF/depressed EF. He has refused implantation of pacemaker in the past, however, and he may not want to pursue ICD either. Keep mag near 2. Keep K near 4. Dr Jc to d/w patient the possibility of ICD at some point. (8) HTN (hypertension): Plan: Improved with increase in metoprolol succinate to 50mg BID. (9) Moderate to severe mitral regurgitation: Plan: Noted on echo (10) DVT prophylaxis: Plan: xarelto 20mg daily. Admission and Anticipated Discharge Date Admission Date: November 11, 2020 Subjective via the [employer] scheduler c/o severe weakness, fatigue, poor appetite still coughing/wheezing albuterol DID help his cough and respiratory symptoms reports voiding significantly following his lasix yesterday tele with IMPROVED a.fib rates overnight (at rest <100 BPM) no chest pain Review of Systems Review of Systems: gen - no further fevers, but having warm sweats CV - no palpitations or chest pain pulm - mild OSCAR GI - no emesis/diarrhea Physical Exam Physical Exam: gen - again looks sickly but nontoxic, coughing neck - mild JVD again today mouth - MMM skin - no rash heart - regular rate, s1 s2, irregularly irregular, 2/6 systolic murmur LLSB and axillary area lungs - diffuse wheezing and rhonchi all lung segments; no rales abd - soft NT ND BS+ ext - no edema b/l, pulses 2+ b/l psych - a/o x 3 Results & Data Results & Data ([facility]) Vital Signs (Past 12 Hours) Vital Signs Temp Pulse Pulse Resp BP Pulse Ox 11/13/20 20:09 37.1 C 95 H 22 122/94 92 11/13/20 16:00 95 H 11/13/20 14:39 36.6 C 88 16 132/88 94 11/13/20 09:48 37.0 C 100 H 18 140/91 92 Laboratory Results Laboratory Results - last 24 hr 11/13/20 08:24 Sodium 140 Potassium 4.0 Chloride 109 H Carbon Dioxide 21 Anion Gap 10.0 BUN 22 H Creatinine 0.85 Est Cr Clr Drug Dosing 100.8 Est GFR ( Amer) 110.5 Est GFR (Non-Af Amer) 95.4 BUN/Creatinine Ratio 26.4 H Glucose 157 H Calcium 9.1 Magnesium 2.1 PG Care Time/CCT Total # of Minutes Spent Total Time Spent with Patient: Total time spent is greater than 50% in coordination of care (as documented) at patient's floor/unit and/or counseling patient: Coding Level of Care Code 27142 Subseq Hosp Care Lvl 2 Diagnoses RSV (respiratory syncytial virus pneumonia) J12.1 Acute on chronic systolic heart failure I50.23 Rapid atrial fibrillation I48.91 Elevated troponin I level R77.8 BPH (benign prostatic hyperplasia) N40.0 Nonischemic cardiomyopathy I42.8 Nonsustained ventricular tachycardia I47.2 HTN (hypertension) I10 Hypertension type: unspecified Moderate to severe mitral regurgitation I34.0 DVT prophylaxis Z29.9 (1) HTN (hypertension) Hypertension type: unspecified Qualified Code(s): I10 - Essential (primary) hypertension
[2020-11-14] MEDS: MELATONIN 3 MG TAB PO PRN (01:20)
[2020-11-14 07:48] LABS: BUN Creatinine Ratio 34.9 (10-20); Calcium 8.7 mg/dl (8.5-10.1); Creatinine Clr Calc Pharmacy 114.3 ml/min; Est GFR (African American) 116.4 ml/min; Est GFR (Non-African American) 100.4 ml/min; Magnesium 2.2 mg/dl (1.8-2.4); Potassium 3.9 mmol/L (3.5-5.1)
[2020-11-14] MEDS: METOPROLOL SUCC 50MG EXT REL TAB PO SCH ×2 (08:04→20:10)
[2020-11-14] MEDS: ASPIRIN 81 MG ECTAB PO SCH (08:04)
[2020-11-14] MEDS: PANTOprazole 40 MG TAB PO SCH (08:04)
[2020-11-14] MEDS: RIVAROXABAN 20 MG TAB PO SCH (08:04)
[2020-11-14] MEDS: BENZONATATE 100 MG CAPSULE PO SCH ×3 (08:04→20:10)
[2020-11-14] MEDS: lisinopril 5 MG TAB PO SCH (08:04)
[2020-11-14] MEDS: guaiFENesin 600 MG TABCR PO SCH ×2 (08:05→20:10)
[2020-11-14] MEDS: MAGNESIUM OXIDE 400 MG TAB PO SCH ×2 (08:05→20:11)
[2020-11-14] MEDS: ACETAMINOPHEN 500 MG TAB PO PRN (08:12)
[2020-11-14] MEDS: predniSONE 50 MG TAB PO SCH (09:43)
[2020-11-14 09:50] LABS: Estimated Average Glucose 111 mg/dl; Hemoglobin A1C 5.5 % (4.5-5.6)
[2020-11-14] MEDS: ALBUTEROL HFA 8 GM INHALER INH SCH ×3 (11:05→19:41)
--- NOTE | 2020-11-14 13:59 | Cardiology Progress Note ---
Date of Service November 14, 2020 Assessment & Plan (1) RSV (respiratory syncytial virus pneumonia): (2) Nonischemic cardiomyopathy: (3) Permanent atrial fibrillation: (4) Moderate to severe mitral regurgitation: Plan: As noted in subjective, long discussion regarding the patient's clinical status. He was worried that he was moribund and might not get out of the hospital. I reassured him that, although it would take some time, he was likely to recover. Given his mental state, would not be unreasonable to give D5W to decrease his adrenergic drive, although I did try multiple times to explain the lack of likely medical benefit from either glucose or magnesium. Still with moderate bronchospasm being treated with beta agonists and steroids. Volume status appears appropriate, monitor for any abrupt weight gain or neck vein elevation which would prompt additional diuretic. BP favorable currently, could increase lisinopril if he becomes hypertensive. No real cardiac recommendations at this time. Will sign off but will be available should his status change. Admission and Anticipated Discharge Date Admission Date: November 11, 2020 Subjective Spent 40 minutes with patient using phone kim [place] medical biller. He was concerned as to any cardiac component to his current illness, I reassured him that bronchospasm secondary to RSV was his main issue and his underlying cardiomyopathy, although not helpful, was not causing any current issues. He asked about receiving either magnesium or glucose infusion, since he believes either of these would be beneficial. He denies chest pain or lightheadedness. Does note dyspnea on exertion and a persistent nonproductive cough. Hemodynamics have been reasonable, ventricular response in the 100-110 bpm range is probably physiologic given his clinical status. Physical Exam Physical Exam: Appears anxious and mildly uncomfortable but not acutely distressed. l afebrile. BP normotensive. Pulse 90-100 bpm and irregular. Skin: No ecchymoses or generalized lesions. HEENT: Unremarkable. Neck: jugular venous pulse just above the clavicle at 90, no carotid bruits. Lungs: Diffuse expiratory wheezing without accessory muscle use. Cardiac: irregular borderline tachycardic rhythm with 2/6 apical holosystolic murmur which is not radiating. Abdomen: Benign. Extremities: Brisk posterior tibial pulses bilaterally, good capillary refill, no pretibial edema. Neurologic: Normal affect and conversation, grossly nonfocal. Results & Data ([facility]) Vital Signs (Past 12 Hours) Vital Signs Temp Pulse Pulse Resp BP Pulse Ox 11/14/20 11:44 97.7 F 87 18 126/93 93 11/14/20 11:07 92 H 18 94 11/14/20 08:15 93 H 11/14/20 08:13 98.1 F 115 H 18 123/78 98 11/14/20 04:47 98.2 F 104 H 18 107/75 94 Laboratory Results Normal electrolytes, BUN 26, creatinine 0.75. Normal electrolytes, BUN 26, creatinine 0.75. PG Care Time/CCT Total # of Minutes Spent Total Time Spent with Patient: Total time spent is greater than 50% in coordination of care (as documented) at patient's floor/unit and/or counseling patient: Coding Level of Care Code 44408 Subseq Hosp Care Lvl 3 Diagnoses RSV (respiratory syncytial virus pneumonia) J12.1 Nonischemic cardiomyopathy I42.8 Permanent atrial fibrillation I48.21 Moderate to severe mitral regurgitation I34.0
[2020-11-14] MEDS: MELATONIN 3 MG TAB PO SCH (20:10)
--- NOTE | 2020-11-14 21:29 | Hospitalist Progress Note ---
Date of Service November 14, 2020 Assessment & Plan (1) RSV (respiratory syncytial virus pneumonia): Plan: Ongoing but slowly improving. Fevers/chills have resolved. Appetite improving. BioFire + for RSV. COVID negative x 2. Plan - * cont prednisone - 50mg today & tomorrow then taper thereafter * increase tessalon to 200mg TID * bronchodilators * mucinex 1200mg BID * tylenol for fever/discomfort * try hydrocodone/homatropine in sydnie of robitussin ac * pulm toilet w/ flutter and incentive * repeat 2-view cxr tomorrow to ensure no developing bacterial superinfection/lobar pneumonia (2) Acute on chronic systolic heart failure: Plan: Appears compensated today s/p lasix earlier this admission. Echo with EF 20-25%. Likely tachy-arrhythmia induced. Appreciate Dr Jc's consultation. Decompensation likely was due to combination of #3 and #1. Can't exclude noncompliance with CHF medications at home. Increased metoprolol succinate to 50mg BID. Cont JOHAN. BMP am. (3) Rapid atrial fibrillation: Plan: A.fib is chronic/permanent. Rates improved with increase in metoprolol to 50 BID. H/o noncompliance in the past with medication regimen. Continue xarelto. (4) Elevated troponin I level: Plan: Likely myocardial demand ischemia in the setting of #1, #2, and #3. No evidence of ACS. Patient, by report, had negative cardiac cath in the past for CAD. (5) BPH (benign prostatic hyperplasia): Plan: Not on meds for such. (6) Nonischemic cardiomyopathy: Plan: Echo this admission with EF 20-25%. Cont BB. Cont JOHAN. Lasix x 1 today. Cardiomyopathy thought to be 2nd to tachy-arrhythmia (uncontrolled a.fib). Appreciate Dr Jc's consultation & recs. (7) Nonsustained ventricular tachycardia: Plan: As seen on tele. 2nd to severe cardiomyopathy. He is a candidate for ICD placement given his severe CHF/depressed EF. Dr Jc spoke with him about ICD - patient not interested at this time. Keep mag near 2. Keep K near 4. (8) HTN (hypertension): Plan: Improved with increase in metoprolol succinate to 50mg BID. (9) Moderate to severe mitral regurgitation: Plan: Noted on echo (10) DVT prophylaxis: Plan: xarelto 20mg daily. Plan: updated pt's son by phone this evening, 11/14 Admission and Anticipated Discharge Date Admission Date: November 11, 2020 Subjective no events or major changes overnight tele - a.fib, rates low 100s I gained all ROS and HPI via [place] taste tester on iPad kim pt reports ongoing cough, congestion, wheezing he does not want to ambulate in the hallway - states wearing a mask makes it hard to breath no significant sputum eating is better no further fevers no chest pain again requests a fan - states he can't sleep at night because of being hot Review of Systems Review of Systems: gen - no further fevers/chills; c/o weakness, fatigue pulm - cough, congestion, wheezing cv - no orthopnea or chest pain GI - no N/V/D, having normal bowel movements Physical Exam Physical Exam: gen - looks better today neck - JVD resolved mouth - MMM skin - no rash heart - borderline tachy, s1 s2, irregularly irregular, 2/6 systolic murmur LLSB and axillary area lungs - diffuse wheezing and rhonchi all lung segments - perhaps modestly better; no rales; no increased work of breathing abd - soft NT ND BS+ ext - no edema b/l, pulses 2+ b/l psych - a/o x 3 Results & Data Results & Data ([facility]) Vital Signs (Past 12 Hours) Vital Signs Temp Pulse Pulse Resp BP Pulse Ox 11/14/20 20:01 36.7 C 103 H 18 144/76 H 92 11/14/20 19:41 105 H 20 95 11/14/20 17:38 106 H 11/14/20 16:58 36.8 C 109 H 20 145/96 H 96 11/14/20 11:44 36.5 C 87 18 126/93 93 11/14/20 11:07 92 H 18 94 Laboratory Results Laboratory Results - last 24 hr 11/12/20 11/14/20 11/14/20 05:55 06:46 06:46 Sodium 139 Potassium 3.9 Chloride 108 H Carbon Dioxide 24 Anion Gap 7.0 BUN 26 H Creatinine 0.75 Est Cr Clr Drug Dosing 114.3 Est GFR ( Amer) 116.4 Est GFR (Non-Af Amer) 100.4 BUN/Creatinine Ratio 34.9 H Glucose 103 H POC Glucose Estimat Average Glucose 111 Hemoglobin A1c 5.5 Calcium 8.7 Magnesium 2.2 Vitamin B12 Urine Legionella Ag SEE NOTE 11/14/20 11/14/20 11/14/20 07:32 09:26 11:41 Sodium Potassium Chloride Carbon Dioxide Anion Gap BUN Creatinine Est Cr Clr Drug Dosing Est GFR ( Amer) Est GFR (Non-Af Amer) BUN/Creatinine Ratio Glucose POC Glucose 92 111 H Estimat Average Glucose Hemoglobin A1c Calcium Magnesium Vitamin B12 767 Urine Legionella Ag 11/14/20 16:16 Sodium Potassium Chloride Carbon Dioxide Anion Gap BUN Creatinine Est Cr Clr Drug Dosing Est GFR ( Amer) Est GFR (Non-Af Amer) BUN/Creatinine Ratio Glucose POC Glucose 118 H Estimat Average Glucose Hemoglobin A1c Calcium Magnesium Vitamin B12 Urine Legionella Ag PG Care Time/CCT Total # of Minutes Spent Total Time Spent with Patient: Total time spent is greater than 50% in coordination of care (as documented) at patient's floor/unit and/or counseling patient: Coding Level of Care Code 68117 Subseq Hosp Care Lvl 2 Diagnoses RSV (respiratory syncytial virus pneumonia) J12.1 Acute on chronic systolic heart failure I50.23 Rapid atrial fibrillation I48.91 Elevated troponin I level R77.8 BPH (benign prostatic hyperplasia) N40.0 Nonischemic cardiomyopathy I42.8 Nonsustained ventricular tachycardia I47.2 HTN (hypertension) I10 Hypertension type: unspecified Moderate to severe mitral regurgitation I34.0 DVT prophylaxis Z29.9 (1) HTN (hypertension) Hypertension type: unspecified Qualified Code(s): I10 - Essential (primary) hypertension
[2020-11-14] MEDS: HYDROcodone/HOMATROPINE SYRUP 5MG/1.5MG 5ML UDP PO PRN (23:09)
[2020-11-15] MEDS: ALBUTEROL HFA 8 GM INHALER INH SCH ×5 (00:16→19:38)
[2020-11-15] MEDS: RIVAROXABAN 20 MG TAB PO SCH (08:27)
[2020-11-15] MEDS: predniSONE 50 MG TAB PO SCH (08:27)
[2020-11-15] MEDS: MAGNESIUM OXIDE 400 MG TAB PO SCH ×2 (08:27→20:58)
[2020-11-15] MEDS: HYDROcodone/HOMATROPINE SYRUP 5MG/1.5MG 5ML UDP PO PRN ×2 (08:27→22:43)
[2020-11-15] MEDS: lisinopril 5 MG TAB PO SCH (08:28)
[2020-11-15] MEDS: guaiFENesin 600 MG TABCR PO SCH ×2 (08:28→20:58)
[2020-11-15] MEDS: ASPIRIN 81 MG ECTAB PO SCH (08:28)
[2020-11-15] MEDS: PANTOprazole 40 MG TAB PO SCH (08:28)
[2020-11-15] MEDS: METOPROLOL SUCC 50MG EXT REL TAB PO SCH (08:28)
[2020-11-15] MEDS: BENZONATATE 100 MG CAPSULE PO SCH ×3 (08:28→20:58)
[2020-11-15 08:47] LABS: BUN Creatinine Ratio 38.7 (10-20); Calcium 8.5 mg/dl (8.5-10.1); Creatinine Clr Calc Pharmacy 104.9 ml/min; Est GFR (African American) 113.3 ml/min; Est GFR (Non-African American) 97.8 ml/min; Potassium 3.7 mmol/L (3.5-5.1)
--- NOTE | 2020-11-15 09:00 | XRay Report ---
XR chest 2V PA/lateral HISTORY: 60 years-old Male RSV bronchiolitis, interval change acute shortness of breath COMPARISON: Chest radiograph 11/12/2020 TECHNIQUE: PA and lateral views chest FINDINGS: Cardiac silhouette is enlarged. No pneumothorax, pleural effusion, airspace consolidation or overt pu lmonary edema. Eventration of the right hemidiaphragm. Mild linear subsegmental atelectasis/scarring of the lingula. Degenerative changes of the shoulders and spine with numerous chronic compression def ormities. IMPRESSION: Cardiomegaly without acute process. ACT 112: Negative or not required by law. The above report was generated using voice recognition software. It may contain grammatical, syntax o r spelling errors. Electronically signed by: Jamarcus Lorenzo M.D. 11/15/2020 8:59 AM
--- NOTE | 2020-11-15 20:14 | Hospitalist Progress Note ---
Date of Service November 15, 2020 Assessment & Plan (1) RSV (respiratory syncytial virus pneumonia): Plan: IMPROVED. CXR today - no lobar pneumonia, no pulm edema. [employer] + for RSV. COVID negative x 2. Plan - * cont prednisone - 50mg today & then 40mg tomorrow; wean by 10mg every 2 days * cont tessalon 200mg TID * cont albuterol scheduled * mucinex 1200mg BID * cont hydrocodone/homatropine in sydnie of robitussin ac - former working better * pulm toilet w/ flutter and incentive No indication for abx at this time. (2) Acute on chronic systolic heart failure: Plan: Appears compensated.. Echo with EF 20-25%. Likely tachy-arrhythmia induced. Appreciate Dr Jc's consultation. Decompensation likely was due to combination of #3 and #1. Can't exclude noncompliance with CHF medications at home. cont metoprolol succinate BID. Cont JOHAN. BMPs stable. (3) Rapid atrial fibrillation: Plan: A.fib is chronic/permanent. Rates improved with increase in metoprolol to 50 BID but still not optimal, especially w/ activity (rates of 150 with walking 2-3 feet in room). INCREASE metoprolol to 75mg BID. H/o noncompliance in the past with medication regimen. Continue xarelto. (4) Elevated troponin I level: Plan: Likely myocardial demand ischemia in the setting of #1, #2, and #3. No evidence of ACS. Patient, by report, had negative cardiac cath in the past for CAD. (5) BPH (benign prostatic hyperplasia): Plan: Not on meds for such. (6) Nonischemic cardiomyopathy: Plan: Echo this admission with EF 20-25%. Cont BB. Adjust dose. Cont JOHAN. Cardiomyopathy thought to be 2nd to tachy-arrhythmia (uncontrolled a.fib). Appreciate Dr Jc's consultation & recs. (7) Nonsustained ventricular tachycardia: Plan: As seen on tele. 2nd to severe cardiomyopathy. He is a candidate for ICD placement given his severe CHF/depressed EF. Dr Jc spoke with him about ICD this admission - patient not interested at this time. Keep mag near 2. Keep K near 4. (8) HTN (hypertension): Plan: Now controlled w/ beta tawny adjustments. (9) Moderate to severe mitral regurgitation: Plan: Noted on echo (10) DVT prophylaxis: Plan: xarelto 20mg daily. (11) Positive blood culture: Plan: 1 admission bottles + for anaerobic GPC this could be peptostreptococcus and other skin eldon anaerobes likely contamination repeat blood cx's from 11/14 thus far negative Plan: updated pt's son by phone this evening and yesterday evening as well anticipate d/c home tomorrow - 11/16 Admission and Anticipated Discharge Date Admission Date: November 11, 2020 Subjective tele - rates through the night upper 90s/low 100s while sleeping with minimal activity his rates go to 140-150 and sustain there for minutes after he stops to rest still coughing but overall feels better appetite improved energy improved still wheezing working on incentive moving about in the room more all information gathered via the [email or web address] Student Officer service he asks about going home soon Review of Systems Review of Systems: gen - no fevers/chills; weak, but improving CV - no chest pain pulm - OSCAR present but no worse than previous GI - no N/V/D/pain Physical Exam Physical Exam: gen - looks much better today, still coughing neck - no JVD mouth - MMM skin - no rash heart - tachy, s1 s2, irregularly irregular, 2/6 systolic murmur LLSB and axillary area lungs - diffuse wheezing and rhonchi all lung segments but improved today; no rales; no increased work of breathing abd - soft NT ND BS+ ext - no edema b/l, pulses 2+ b/l psych - a/o x 3 Results & Data Results & Data ([facility]) Vital Signs (Past 12 Hours) Vital Signs Temp Pulse Resp BP Pulse Ox 11/15/20 19:39 99 H 20 95 11/15/20 19:00 36.9 C 110 H 24 108/64 93 11/15/20 17:00 36.7 C 104 H 18 113/76 94 11/15/20 12:34 100 H 16 96 11/15/20 12:00 36.9 C 112 H 18 123/76 95 Laboratory Results Laboratory Results - last 24 hr 11/15/20 07:32 Sodium 139 Potassium 3.7 Chloride 110 H Carbon Dioxide 25 Anion Gap 5.0 BUN 31 H Creatinine 0.80 Est Cr Clr Drug Dosing 104.9 Est GFR ( Amer) 113.3 Est GFR (Non-Af Amer) 97.8 BUN/Creatinine Ratio 38.7 H Glucose 95 Calcium 8.5 PG Care Time/CCT Total # of Minutes Spent Total Time Spent with Patient: Total time spent is greater than 50% in coordination of care (as documented) at patient's floor/unit and/or counseling patient: Coding Level of Care Code 95113 Subseq Hosp Care Lvl 2 Diagnoses RSV (respiratory syncytial virus pneumonia) J12.1 Acute on chronic systolic heart failure I50.23 Rapid atrial fibrillation I48.91 Elevated troponin I level R77.8 BPH (benign prostatic hyperplasia) N40.0 Nonischemic cardiomyopathy I42.8 Nonsustained ventricular tachycardia I47.2 HTN (hypertension) I10 Hypertension type: unspecified Moderate to severe mitral regurgitation I34.0 DVT prophylaxis Z29.9 Positive blood culture R78.81 (1) HTN (hypertension) Hypertension type: unspecified Qualified Code(s): I10 - Essential (primary) hypertension
[2020-11-15] MEDS: METOPROLOL SUCC 25MG EXT REL TAB PO SCH (20:58)
[2020-11-15] MEDS: MELATONIN 3 MG TAB PO SCH (20:58)
[2020-11-16] MEDS: ALBUTEROL HFA 8 GM INHALER INH SCH ×3 (00:23→12:24)
[2020-11-16] MEDS ORDERED: predniSONE 20 MG TAB PO SCH (09:00)
[2020-11-16] MEDS: METOPROLOL SUCC 25MG EXT REL TAB PO SCH (09:09)
[2020-11-16] MEDS: MAGNESIUM OXIDE 400 MG TAB PO SCH (09:10)
[2020-11-16] MEDS: RIVAROXABAN 20 MG TAB PO SCH (09:10)
[2020-11-16] MEDS: guaiFENesin 600 MG TABCR PO SCH (09:10)
[2020-11-16] MEDS: PANTOprazole 40 MG TAB PO SCH (09:10)
[2020-11-16] MEDS: BENZONATATE 100 MG CAPSULE PO SCH (09:10)
[2020-11-16] MEDS: ASPIRIN 81 MG ECTAB PO SCH (09:10)
[2020-11-16] MEDS: lisinopril 5 MG TAB PO SCH (09:10)
[2020-11-16] MEDS: HYDROcodone/HOMATROPINE SYRUP 5MG/1.5MG 5ML UDP PO PRN (09:50)
--- NOTE | 2020-11-16 11:52 | Discharge Summary ---
Date of Service date of admission - November 11, 2020 date of discharge - November 16, 2020 Admission HPI Per Admitting Provider 60-year-old male with a history of nonischemic cardiomyopathy he has a history of permanent atrial fibrillation and presents with rapid ventricular rate. Jen baltazar has previously noted to be free of atrial fibrillation for some time but occasionally does intermittently dose or not doses home medications. He however at this time states has been taking his medications. Patiently is noted to have Covid pneumonia in February 2020 Patient's biggest complaint is really having a fever at home and having a productive cough of yellow-green mucus. He does not have a lobar infiltrate seen on chest x-ray in fact the chest x-ray looks more like interstitial infiltrates.. This may be atypical pneumonia. The patient will be treated with azithromycin pending Legionella antigen. Consideration for bio fire will be after procalcitonin is resulted. Likely his atrial fibrillation is from physiological stressor of infection. If need be cardiology consultation undertaken however he is continued on his metoprolol and Xarelto. Given the mild elevation of troponin which is typically chronic for him he will be given low-dose aspirin and his troponins will be trended as well as an echocardiogram ordered for the morning Principal Diagnosis 1. RSV bronchitis/pneumonitis 2. acute/chronic systolic CHF 3. rapid a.fib/uncontrolled permanent a.fib Discharge Exam Gen: NAD, looks much better than prior exams Mouth: MMM Neck: no JVD Heart: irregularly irregular, s1 s2, 2/6 systolic murmur LLSB --> left axillae Lungs: wheezes b/l all lung segments with occasional rhonchi, no rales, coughing but no increased work of breathing Abd: soft, NT, ND, BS+ Ext: no edema, pulses 2+ b/l Discharge Data Allergies Allergy/AdvReac Type Severity Reaction Status Date / Time No Known Allergies Allergy Mild Verified 11/18/20 11:31 Consultations [facility] - [place] Jc MD PT Procedures Performed Echocardiogram - * EF 20-25% * severe global hypokinesis of LV * septal dyskinesis * right ventricle is normal in size * right ventricular systolic function is mildly reduced * mod-severe mitral regurgitation * left atrium is severely dilated * mild pulmonary HTN * in comparison to 01/28/19 study - mild further decline in LV function Hospital Course (1) RSV (respiratory syncytial virus pneumonia): Patient presented with a febrile respiratory illness. Cough and wheezing were severe. Initial COVID testing at ER presentation was negative. [employer] respiratory panel was again negative for COVID-19 but POSITIVE for RSV. Chest x-rays failed to show any lobar pneumonia. He was treated with steroids, bronchodilators, cough suppressants, and supportive care. He never had an O2 requirement. Symptoms gradually improved throughout his stay. He did not have any indication for antibiotics as there was no evidence of complicating bacterial superinfection. At discharge his cough/wheezing were improving and he was sent home on a prednisone taper. (2) Acute on chronic systolic heart failure: Patient underwent echocardiogram this admission with EF 20-25%. Previous echo in 2019 showed EF 25-30%. Likely tachy-arrhythmia induced cardiomyopathy. He was diuresed during the visit and at time of discharge was compensated. Decompensation likely was due to combination of #3 and #1. Can't exclude noncompliance with CHF medications at home as well. He will continue metoprolol succinate BID. The dose of this was increased to 75mg BID due to severely uncontrolled a.fib. Cont JOHAN. Lasix will be used on a sliding scale/weight-based scale. He was seen by Dr Flynn Jc, his primary downstream biomanufacturing technician, during the visit. He provided gaston recommendations for Mr Alvarado's care. He will f/u with Dr Jc post-discharge. (3) Rapid atrial fibrillation: A.fib is chronic/permanent. He had rapid a.fib at presentation and throughout the visit. This prompted an increase in metoprolol succinate from 50mg daily to BID dosing. Finally, his metoprolol was increased to 75mg BID later in his stay. With the above changes his rates improved prior to discharge. He will continue Xarelto for anticoagulation; however, he has been noncompliant with this in the past. (4) Elevated troponin I level: Likely myocardial demand ischemia in the setting of #1, #2, and #3. No evidence of ACS. Patient, by report, had negative cardiac cath in the past for CAD. (5) BPH (benign prostatic hyperplasia): Not on meds for such. No issues voiding during the stay. (6) Nonischemic cardiomyopathy: Echo this admission with EF 20-25%. Cont BB. Cont JOHAN. Cardiomyopathy thought to be 2nd to tachy-arrhythmia (uncontrolled a.fib). Appreciate Dr Jc's consultation & recs. (7) Nonsustained ventricular tachycardia: Multiple runs - as seen on telemetry. 2nd to severe cardiomyopathy. He is a candidate for ICD placement given his severe CHF/depressed EF. Dr Jc spoke with him about ICD this admission - patient not interested at this time. He has declined ICD implantation in the past as well. (8) HTN (hypertension): Now controlled w/ beta tawny adjustments. (9) Moderate to severe mitral regurgitation: Noted on echo (10) Positive blood culture: 1/2 admission bottles + for anaerobic gram positive cocci. this likely represented peptostreptococcus or other skin eldon anaerobes. likely contamination. repeat blood cx's from 11/14/20 remained negative. No antibiotics were recommended for the anaerobic gram positive cocci in the 1 blood culture bottle. Total Time Total Time Spent Total Time Spent (In Minutes): 45 Discharge Plan Discharge Items Patient Disposition: Home - Self-Care Reason For Visit: Rapid Atrial Fibrillation, Severe Cough & Illness Discharge Diagnosis: 1. RSV bronchitis/pneumonitis 2. rapid atrial fibrillation - improving with adjustment of medications 3. severe congestive heart failure - your weak heart is likely due to the uncontrolled atrial fibrillation Activity: As commented below Activity Comment: gradually increase your activities over the next 1-2 weeks Exercise/Sports: Wait until after follow-up appointment Non-emergency contact: Primary Care Provider and Projection Welding Machine Operator Call non-emergency contact if: you have any medication questions, your symptoms worsen and you have a fever Follow-up/Referrals: Flynn Jc MD [Physician] - (see Dr Jc within 1-2 weeks ) Rosalind Motley MD [Primary Care Provider] - (see Dr Granado within 1 week ) Diet: Low Sodium (2gm) Fluids: 1800ml (7 cups) Addtl Attending Provider Instructions: Mr Alvarado You were admitted to the hospital for a severe respiratory infection. We checked you twice for COVID-19 infection and your tests were NEGATIVE for COVID. Your respiratory panel test, however, showed that you had a virus called "RSV." (respiratory syncytial virus) RSV has been circulating in the [facility] recently. It tends to affect babies and children more commonly, but adults can also get it. When adults catch RSV it causes severe bronchitis/pneumonitis. The symptoms include fever, weakness, cough, congestion, wheezing, and shortness of breath. The symptoms can last for up to 2 weeks, especially the cough. Since RSV is a virus there is no antibiotic or antidote to treat RSV. The medications we are giving to you are mainly to treat the symptoms and hopefully get them to go away faster. Please take the following for your cough/wheezing - * albuterol inhaler - use with plastic spacer - 2 puffs every 4 hours as needed for cough/wheezing/shortness of breath * benzonatate pearles - 200mg up to 3 times a day as needed for cough * hydrocodone cough syrup - 5ml every 6 hours as needed for cough * please know that the hydrocodone cough syrup has a strong narcotic in it * please do not drink alcohol while taking this syrup * please do not drive a car while taking this syrup * it can cause someone to feel a little tired while taking it * prednisone course - start TOMORROW and take for 4 days We performed an echocardiogram of your heart and your heart is even weaker than previous. Your ejection fraction number is 20-25%. Dr Jc feels that your atrial fibrillation heart rhythm problem has made your heart weak. It is so important to take your heart medications EVERY DAY and as directed. Otherwise you will continue to feel very poorly even after you get over your RSV infection. Heart medications - * lisinopril 5mg daily * metoprolol succinate -- take 3 tabs every morning, and 3 tabs every evening at bedtime Again it is vital for you to take your heart medications every day to stay as well as possible. Follow-up - see separate section Return to [facility] if - * you have fever over 100 degrees * you have worsening shortness of breath * you have severe cough that is not improving despite all of the above medications * you are noticing water retention in your legs and ankles * your weight is rising rapidly (see below) * any other concerns Continue to feel better! - Dr Rebolledo Addtl Long Filler Cigar Roller Machine Provider Instructions: Call 911 and go to the Emergency Room if: * You have tightness or pain in your chest that does not go away with rest or Nitroglycerin * You are very short of breath even with rest Call your doctor if any of the following symptoms or problems start or get worse: * Shortness of breath or difficulty breathing * Wake up at night short of breath * Chest pain * Cough * Swelling of your hands, fee, or legs * More fatigued or tired with your normal activity * Palpitations - sudden fast heart beats WEIGHT * Weigh yourself every morning after using the bathroom. * Use the same scale. * Wear the same amount of clothing. * Write your weight down on your chart. * Call your doctor if you gain more than 2-3 pounds in 1-2 days. This is usually a sign of water retention from your congestive heart failure* MEDICATIONS * Use this discharge instruction sheet for instructions. * Take your medications at the time your doctor ordered. * Do not skip a dose of your medicines. * If you miss a dose of medicine, take as soon as possible, but DO NOT DOUBLE A DOSE. * Read your medicine information when you get home. * Know all of the side effects of your medicine. * Call your doctor's office if you have any side effects. * Be sure all of your doctors know what medicine and herbs you take (including cold, flu, and herbal medicine). * Pain Medicine: If you do not get relief from your pain, please call your doctor for help. Take the following with you to your follow-up doctor appointments: * Weight Chart * Medication List * List of questions Do not drink excessive alcohol, beer or wine. Pending Studies at Discharge: No Stand-Alone Forms: My [facility], Smoking Cessation Medications and DC Order Prescriptions: New albuterol sulfate [Ventolin HFA] 90 mcg/actuation Hfa Aerosol Inhaler 2 puff inhalation Q4H PRN (Reason: cough/wheezing/shortness of breath) Qty: 1 RF: 0 benzonatate [Tessalon Perles] 100 mg Capsule 200 mg PO TID PRN (Reason: cough) Qty: 20 RF: 0 hydrocodone-homatropine [Hydromet] 5-1.5 mg/5 mL Syrup 5 ml PO Q6H PRN (Reason: cough) Qty: 100 RF: 0 prednisone 10 mg tablet 10 mg PO .daily as directed Qty: 10 RF: 0 Continued hydrocortisone [Anusol-HC] 2.5 % cream with perineal applicator 1 applic TX DAILY PRN (Reason: hemorrhoids) Qty: 30 RF: 0 nitroglycerin 0.4 mg tablet, sublingual 0.4 mg SL Q5M PRN (Reason: chest pain) Qty: 30 RF: 0 rivaroxaban 20 mg tablet 20 mg PO QAM RF: 0 furosemide 40 mg tablet 40 mg PO QAM PRN (Reason: swelling) RF: 0 pantoprazole 40 mg tablet,delayed release (DR/EC) 40 mg PO QAM RF: 0 Changed metoprolol succinate 25 mg capsule,sprinkle,ER 24hr 75 mg PO BID Qty: 180 RF: 1 Discontinued Entresto 24-26 mg tablet 1 tab PO BID Qty: 60 RF: 2 No Action lisinopril [Zestril] 5 mg tablet 10 mg PO BID Qty: 120 RF: 1 Hold Instructions: pt is on entresto and zestril Discharge Orders: Discharge Order (Routine); Ordered 11/16/20 Ordered By: Tripp Thomas/Other Patient Handouts: Acute Bronchitis Admission Data Admit Date/Time: 11/11/20 15:19 Attending Provider: Tripp Rebolledo Admit Provider: Scotty Zhang Primary Care Provider: Rosalind Motley V. Other Providers: Scotty Zhang ; Flynn Jc Other Interventions: Discharge Summary Assessment (RN) Last Done: 11/16/20 12:44 Coding Level of Care Code D/C DAY MANAGEMENT >30 MINS Diagnoses RSV (respiratory syncytial virus pneumonia) J12.1 Acute on chronic systolic heart failure I50.23 Rapid atrial fibrillation I48.91 Elevated troponin I level R77.8 BPH (benign prostatic hyperplasia) N40.0 Nonischemic cardiomyopathy I42.8 Nonsustained ventricular tachycardia I47.2 HTN (hypertension) I10 Hypertension type: unspecified Moderate to severe mitral regurgitation I34.0 Positive blood culture R78.81
== END 2020-11-16 14:25 | disposition home or self-care (01) ==
LOC: ED 11:44 → SUATTDRO 15:19 → INTOOBSV 15:19 → 2S 15:19